=== PATIENT | female | born 1945 | race Caucasian/White ===

== ENCOUNTER 2021-10-23 09:26 | Day surgery (SDC) | payer MEDICARE, OTHER, SELFPAY ==
[2021-10-23 10:12] VITALS: BMI 22.1
[2021-10-23 10:29] VITALS: BP 187/79; PULSE 67; RESP 18; TEMP 36.7; O2SAT 98; BMI 21.1
[2021-10-23 10:36] LABS: Barbiturates Screen,Urine Positive ng/ml (<200); Benzodiazepines Screen,Urine Negative ng/ml (<200)
[2021-10-23 10:37] LABS: Amphetamine/Metha Screen,Urine Negative ng/ml (<1000)
[2021-10-23 10:38] LABS: Cannabinoid Screen,Urine Negative ng/ml (<50); Cocaine Screen,Urine Negative ng/ml (<300)
[2021-10-23 10:39] LABS: Methadone Screen,Urine Negative ng/ml (<300); Opiate Screen,Urine Negative ng/ml (<300)
[2021-10-23 10:40] LABS: Phencyclidine Screen,Urine Negative ng/ml (<25)
--- NOTE | 2021-10-23 13:00 | HMH.ANESCL ---
[facility] Anesthesia Checklist - Patient Identification Patient Identification: Arm Band - Structural Data Admitted From: Home Planned Operative Procedure/s: Pain pump placement Consent for Planned Operative Procedure(s) Verified: Yes - NPO Status Verified Time NPO: 00:00 - Additional verifications Anesthesia Reactions: Yes (nausea) Hx Blood Transfusions: No Blood Transfusion Reaction: No - Airway Assessment C-Spine Mobility Assessed: Yes TMJ Mobility Assessed: Yes Dentition: Good Dentition - Neurological Assessment Level of Consciousness: Awake Hx Seizures: No Numbness or tingling in extremities: No - Anesthesia Plan Anesthesia Risk discussed: Yes Anesthesia Plan: Verified ASA Class: III Anesthesia Type: MAC [facility] History I have reviewed the patient's past medical history: Yes Medical History: Reports:: Coronary Artery Disease, Gastroesophageal Reflux Disease(GERD), Hypertension Denies:: Cancer, Diabetes Mellitus Type 1, Diabetes Mellitus Type 2, Internal Pacemaker, MRSA, Seizures *Have you ever received a pneumonia vaccine?: Yes *Have you received a flu vaccine this season?: Yes Other Medical History: Reports: Other (Fibromyalgia, TMJ, tremors). Denies: Blood Transfusion Reaction Anesthesia experience/problems:: None Other Surgeries: No: Pacemaker Amputation: No - *Social History Last grade of school completed: 11th or 12th Smoking Status: Never smoker Alcohol Intake: never Substance Use Type: denies use *Occupational Status:: retired Housing: house Household Members: spouse *Travel in the last 8 weeks: None Family Hx:: Cancer, Diabetes, Heart Attack
[2021-10-23 14:08] VITALS: BP 164/76; PULSE 68; RESP 14; TEMP 36.6; O2SAT 99
[2021-10-23 14:18] VITALS: BP 182/79; PULSE 64; RESP 16; O2SAT 97
--- NOTE | 2021-10-23 14:19 | HMH.OPNOTE ---
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 Degenerative disc disease of lumbar spine with lumbar radiculopathy symptoms. Post-op Diagnosis:: Same Procedure performed:: Intrathecal catheter placement with tunneling and intrathecal pain pump generator placement for permanent intrathecal pain pump system Surgeon:: Chris Garcia MD BAGGER AND STOCK HANDLER HELPER:: Vanessa Cabrera Anesthesia: MAC Estimated blood loss (mL): 5 Clinical Note:: Patient is a pleasant 76-year-old white female from our [place] office. We have been treating her for degenerative disc disease of the cervical spine with radiculopathy symptoms as well as degenerative disc disease of lumbar spine with lumbar radiculopathy symptoms. She does also have involuntary jerking movements of her neck. This could be tardive dyskinesia. She has follow-up previous conservative treatments including oral medications, injections and physical therapy. She is not a surgical candidate. She did have a successful intrathecal pump trial and a successful psychological evaluation. She was 80 to 90% better after the pump trial. She was also much more functional. Also jerking movements have subsided significantly during the trial. She presents for permanent placement of her intrathecal pain pump today. This will be with morphine 5 mg/mL to start at 0.25 mg/day. Operative findings:: None Operative note:: Informed consent was obtained the risk and benefits of the procedure were explained to the patient. Patient was taken the operating room placed prone on the procedure table. She was prepped and draped in sterile fashion. The pump pocket was made on the right flank. After this C-arm fluoroscopy was used to view the lumbar spine. The skin and subtenons tissues adjacent to the L4-5 and L5-S1 interspace were anesthetized using lidocaine. I made an incision and dissected down to the lumbar paraspinous fascia. A 17-gauge spinal needle was inserted and advanced into the L5-S1 interspace until clear CSF was obtained. After this intrathecal catheter was inserted and advanced very easily to the T6 vertebral body. The stylette of the catheter and the needle were withdrawn. The catheter was secured to the fascia with 2 anchor devices and 2-0 Prolene. I then prepared the pump with 20 mL of intrathecal morphine 5 mg/mL. I tunneled the catheter from the back to the pump pocket and attached catheter to the pump. We were able to freely withdraw clear CSF through the side-port. Both incisions were irrigated with a biotic solution. Both incisions were then closed with 2-0 Vicryl followed by 4-0 nylon. A wound VAC was placed over both incisions. The patient was placed in an abdominal binder taken recovery in stable condition. The patient tolerated the procedure well with no complications. The pump was interrogated in recovery and started at 0.25 mg/day. Patient was discharged home neurologically intact with good relief of pain symptoms. Plan and disposition: We will follow-up with this patient in our [place] office. We will follow-up with her next week. If she has any problems questions she is to call us back in the pain clinic. Condition: stable Disposition: PACU Complications:: None
[2021-10-23 14:28] VITALS: BP 157/98; PULSE 68; RESP 16; O2SAT 98
[2021-10-23 14:38] VITALS: BP 163/78; PULSE 65; RESP 16; TEMP 36.6; O2SAT 98
== END 2021-10-23 14:39 | disposition home or self-care (01) ==
LOC: OR 09:29
PROVIDERS: PCP Physician Assistant; Visit Provider Anesthesiology
DX: M50.10 Cervical disc disorder with radiculopathy, unspecified cervical region (principal); M51.16 Intervertebral disc disorders with radiculopathy, lumbar region; I25.10 Atherosclerotic heart disease of native coronary artery without angina pectoris; K21.9 Gastro-esophageal reflux disease without esophagitis; I10 Essential (primary) hypertension; M79.7 Fibromyalgia; Z79.899 Other long term (current) drug therapy; Z88.8 Allergy status to other drugs, medicaments and biological substances
CPT/HCPCS: 62350; 62362; 80305; 96374; C1755; C1772; J3370

== ENCOUNTER 2023-12-01 12:56 | Outpatient (POV) | payer MEDICARE, OTHER, SELFPAY ==
[2023-12-01 13:31] VITALS: BP 170/77; PULSE 85; RESP 18; O2SAT 98; BMI 22.4
--- NOTE | 2023-12-01 13:39 | P.PCN_ITS ---
Procedure Date: 12/01/23 Time: 13:39 Anesthesiologist:: Taylor Ray APRN Complications:: None Pre-procedure Diagnosis:: Degenerative disc disease of cervical and lumbar spine with cervical and lumbar radiculopathy symptoms, chronic pain syndrome Post-procedure Diagnosis:: Same Indications for Procedure:: Patient is a pleasant 78-year-old female who presents today as an patient transfer from the [facility]. Patient rates her pain today a 7 out of 10. She denies any new trauma or injury from her last visit here. Patient does have chronic neck and low back pain with radicular symptoms. Patient has tried and failed oral medication, heat and ice and topicals along with injection therapy. Patient states that the only thing that really seem to give improvement was the pump trial and now the pump. She is currently managed with morphine 7.5 mg/mL with a daily dose of 1.32 mg/day. She denies any side effects from this medication. Patient is also managed with baclofen and states it does help however she has trouble sleeping at night due to the pain. Patient does also state that she got diagnosed with rheumatoid arthritis approximately 1 year ago and feels like this does make her pain worse from time to time. She is also managed with compounded cream. Her Jesse has been reviewed and is appropriate. Physical Exam: General: Alert and oriented x3, no acute distress, pleasant and cooperative Lungs: Respirations even and unlabored, symmetrical chest expansion Eyes: PERRL Musculoskeletal: Flexion and extension of lumbar [spine] somewhat guarded secondary to pain, [antalgic gait noted] Neurological: Speech clear, no gross sensory deficit Procedure Details:: Informed consent was obtained and the risk and benefits of the procedure were explained to the patient. Patient was taken to the procedure room where no ninvasive monitoring was placed including noninvasive blood pressure cuff and pulse oximeter. Patient's pump was interrogated and was reprogrammed to morphine 1.452 mg/day. The patient tolerated the procedure well with no complications. Plan and Disposition:: Patient tolerated her intrathecal increase with no complications and was discharged neurologically intact. I did discuss with the patient to talk to her [facility] home refill nurse regarding making an adjustment to her boluses. I will also send in a 14-day supply of Skelaxin 800 mg at bedtime. Patient was counseled to discontinue her baclofen at night while she is trying this medication and to contact our office if it does help and she would like refills. Patient will return to clinic in 6 months for reevaluation of symptoms and plan of care. Patient has been instructed to contact the clinic with any concerns before the next appointment. Dr. Garcia has reviewed this note and agrees with this plan of care. This note was dictated using voice recognition software and make contain errors or omissions. -- It Is medically necessary for this patient to continue to have their intrathecal pump refilled at regular intervals. This patient had an intrathecal pain pump implanted after meeting criteria of chronic intractable pain for greater than 3 months and failing conservative treatments. Patient has committed and been compliant to the treatment plan and all planned follow up care. Since implantation of the intrathecal pain pump, the patient has had decreased pain and been more functional. Oral medications have been reduced including intake of oral opioids. Patient continues to do well with intrathecal therapy with decrease in pain symptoms and increase in functional status. Stopping intrathecal medications can lead to life threatening withdrawal, seizures, cardiac arrest, severe pain, and possible . Pumps that are not refilled at regular intervals can be damages and cause and need for replacement. We continually titrate dose and concentration to optimize pain relief and function. We are limited in concentration for certain drugs to safely deliver medications through the pump and stay within the recommendations from the Polyanalgesic Consensus Committee Guidelines. Depending on dose and concentration these pumps may need to be refilled sooner than 3 months as we titrate.
== END 2023-12-01 23:59 | disposition home or self-care (01) ==
PROVIDERS: PCP Physician Assistant; Visit Provider Nurse Practitioner Family
DX: G89.4 Chronic pain syndrome (principal); M50.10 Cervical disc disorder with radiculopathy, unspecified cervical region
CPT/HCPCS: 62368; 99202; G0463

== ENCOUNTER 2024-02-06 12:59 | Outpatient (POV) | payer MEDICARE, OTHER, SELFPAY ==
[2024-02-06 13:20] VITALS: BP 206/73; PULSE 88; RESP 16; O2SAT 97; BMI 23.0
--- NOTE | 2024-02-06 15:49 | A.OFFVIS_ITS ---
[facility] Disclaimer: The information contained in this section may have been updated after the patient was seen, as this information can be updated by other users. Medical History Vitamin D deficiency GERD (gastroesophageal reflux disease) HTN (hypertension) Depression Family History Other Unknown family medical history Social History Smoking Status: Never smoker alcohol intake: never substance use type: denies use current occupational status: other Travel in the last 8 weeks: None household members: spouse housing: house caffeine: Yes PM Subjective & Objective Subjective Subjective:: This patient is not getting any relief of her pain symptoms despite increases in her pain pump. Meds Home Medications and Allergies Home Medications ?Medication ?Instructions ?Recorded ?Confirmed ?Type acetaminophen 500 mg tablet 500 mg PO BID Pain 10/12/21 02/06/24 History buspirone 15 mg tablet 15 mg PO TID mood 10/12/21 02/06/24 History celecoxib 100 mg capsule 100 mg PO BIDP PRN arthritis 10/12/21 02/06/24 History cetirizine 10 mg capsule 10 mg PO DAILY allergies 10/12/21 02/06/24 History cetirizine 10 mg tablet 10 mg PO DAILY allergies 10/12/21 02/06/24 History lisinopril 40 mg tablet 40 mg PO DAILY blood pressure 10/12/21 02/06/24 History metoprolol succinate 25 mg 25 mg PO DAILY Heart disease 10/12/21 02/06/24 History tablet,extended release 24 hr nitroglycerin 0.4 mg sublingual 0.4 mg sublingual DAILYP PRN Chest 10/12/21 02/06/24 History tablet Pain ondansetron HCl 4 mg tablet 4 mg PO BIDP PRN Nausea 10/12/21 02/06/24 History pantoprazole 40 mg tablet,delayed 40 mg PO DAILY GERD 10/12/21 02/06/24 History release primidone 250 mg tablet 250 mg PO DAILY HRT 10/12/21 02/06/24 History sucralfate 1 gram tablet 1 gm PO BID stomach 10/12/21 02/06/24 History tizanidine 2 mg tablet 2 mg PO BIDP PRN muscle spasms 10/12/21 02/06/24 History tramadol 50 mg tablet 50 mg PO QID Pain 10/12/21 02/06/24 History trazodone 100 mg tablet 100 mg PO HS sleep 10/12/21 02/06/24 History cholecalciferol (vitamin D3) 10 400 unit PO DAILY Supplement 10/23/21 02/06/24 History mcg (400 unit) capsule diclofenac submicronized 35 mg 35 mg PO DAILY Pain 10/23/21 02/06/24 History capsule duloxetine 20 mg capsule,delayed 20 mg PO DAILY mood 10/23/21 02/06/24 History release sulfamethoxazole 800 1 each PO BID #14 tabs 10/23/21 02/06/24 Rx mg-trimethoprim 160 mg tablet methocarbamol 750 mg tablet 750 mg PO HS #14 tabs 12/01/23 02/06/24 Rx New Prescriptions to Start Prescriptions: Allergies Allergy/AdvReac Type Severity Reaction Status Date / Time ceftriaxone Allergy Verified 10/23/21 12:08 deutetrabenazine Allergy Verified 10/23/21 12:08 [From [facility]] gabapentin Allergy Verified 10/23/21 12:08 hydrochlorothiazide Allergy Verified 10/23/21 12:08 methylprednisolone Allergy Verified 10/23/21 12:08 nitrofurantoin Allergy Verified 10/23/21 12:08 orphenadrine Allergy Verified 10/23/21 12:08 povidone-iodine Allergy Verified 10/23/21 12:08 sulindac Allergy Verified 10/23/21 12:08 tolmetin Allergy Verified 10/23/21 12:08
--- NOTE | 2024-02-06 15:50 | EXP.PAIN.PRO ---
Procedure Date: 02/06/24 Time: 15:50 Anesthesiologist:: Chris Garcia MD Complications:: None Pre-procedure Diagnosis:: Degenerative disc disease of the lumbar spine with lumbar radiculopathy symptom Post-procedure Diagnosis:: Same Indications for Procedure:: This patient is a pleasant 78-year-old white female who we are treating for low back pain with lumbar radiculopathy symptoms. She continues to have increasing pain despite a significant increase in her pump at her last visit. She is wondering if her pump is working. She would like to decrease her pump and hopes of possible explant. She is also following up with neurosurgery to see if she may be a surgical candidate. She also does have a Flow[employer]ix pain pump system. We have discussed change of her pain pump system to a Rate [employer] system as the flowonix pain pump system is nonfunctional. Today we will decrease her pump 20% to 1.6 mg/day. Will follow-up with her in 2 weeks. Procedure Details:: Pump adjustment Informed consent was obtained risk and benefits of the procedure were explained to the patient. The patient was taken to the procedure room. The pump was interrogated intrathecal morphine infusion was decreased to 1.6 mg/day. This is a 20% reduction. Refill date now is March 10, 2024. Patient tolerated the procedure well with no complications. Plan and Disposition:: This patient will follow-up with us in 2 weeks. Will follow-up on neurosurgical recommendations as well as a decrease of her pump. Will also seek approval for change of her pump if the patient wants to keep her pump and not explant.
== END 2024-02-06 23:59 | disposition home or self-care (01) ==
PROVIDERS: PCP Physician Assistant; Visit Provider Anesthesiology
DX: M51.16 Intervertebral disc disorders with radiculopathy, lumbar region (principal)
CPT/HCPCS: 62368; 99212; G0463

== ENCOUNTER 2024-02-20 08:36 | Day surgery (SDC) | payer MEDICARE, SELFPAY ==
[2024-02-20 08:59] VITALS: BP 168/72; PULSE 75; RESP 18; O2SAT 97
[2024-02-20 09:00] VITALS: BP 189/75; PULSE 74; RESP 18; O2SAT 97; BMI 22.6
--- NOTE | 2024-02-20 09:10 | P.PCN_ITS ---
Procedure Date: 02/20/24 Time: 09:10 Anesthesiologist:: Taylor Ray APRN Complications:: None Pre-procedure Diagnosis:: Degenerative disc disease of lumbar spine with lumbar radiculopathy symptoms Post-procedure Diagnosis:: Same Indications for Procedure:: Patient is a pleasant 79-year-old female who presents today for intrathecal refill and reprogram. Today she rates her pain a 7 out of 10. Patient denies any new trauma or injury. Patient does state that the 20% decrease at her last visit did seem to ease down her nightmare she was experiencing however she is stating she has had a little bit worse pain due to that fact. Patient does state that she has anxiety and that she is still wanting to try and stay at the at home refill program. She is requesting if we can go to bupivacaine in her pump. Patient is currently managed with morphine 7.5 mg/mL with a daily dose of 1.596 mg/day. She denies any side effects from this medication. Her Jesse has been reviewed and is appropriate. Physical Exam: General: Alert and oriented x3, no acute distress, pleasant and cooperative Lungs: Respirations even and unlabored, symmetrical chest expansion Eyes: PERRL Musculoskeletal: Flexion and extension of lumbar [spine] somewhat guarded secondary to pain, [antalgic gait noted] Neurological: Speech clear, no gross sensory deficit Procedure Details:: Informed consent was obtained and the risk and benefits of the procedure were e xplained to the patient. The patient was taken to the procedure room where noninvasive monitoring was placed including noninvasive blood pressure cuff and pulse oximeter. Patient's pump was interrogated. The area over the pump was cleansed with chlorhexidine as a cleansing solution. In sterile fashion the pump was accessed with a 22-gauge needle. Approximately 9.6 mls of the pump solution was removed and discarded appropriately. The pump was then refilled with 20 mL's of morphine 7.5 mg/mL. The needle was withdrawn and a bandage was placed over the puncture site. The infusion rate was reprogrammed and decreased to morphine 1.28 mg/day. The patient tolerated well with no complication. Plan and Disposition:: Patient tolerated her intrathecal refill and reprogram with no complications and was discharged neurologically intact. Patient was discussed regarding changing over her intrathecal medication to bupivacaine and she would like to proceed forward with this plan of care. I have counseled her that I would like to see her additionally to slowly decrease her medication down to minimize withdrawal symptoms. Patient agrees with this plan of care. Patient does also have a [employer] intrathecal system and this company is no longer in service. Patient has been reviewed over the plan to switch out her intrathecal pump system to [employer]. Patient was counseled that the catheter is not compatible with the Medtronic system and she would get a complete system change. Patient agrees with this plan of care. Patient does have significant improvement with her intrathecal pain pump system since having it placed in 2021. We will plan on submitting for her intrathecal pump replacement with catheter change out to insurance due to her current system having no longer being in service with no support available for any problems. Patient will return to clinic in 3 weeks for additional adjustment and reprogram of her pump. We will see the patient back in the clinic at the next intrathecal refill. Patient has been instructed to contact the clinic with any concerns before the next appointment. Dr. Garcia has reviewed this note and agrees with this plan of care. This note was dictated using voice recognition software and make contain errors or omissions. -- It Is medically necessary for this patient to continue to have their intrathecal pump refilled at regular intervals. This patient had an intrathecal pain pump implanted after meeting criteria of chronic intractable pain for greater than 3 months and failing conservative treatments. Patient has committed and been compliant to the treatment plan and all planned follow up care. Since implantation of the intrathecal pain pump, the patient has had decreased pain and been more functional. Oral medications have been reduced including intake of oral opioids. Patient continues to do well with intrathecal therapy with decrease in pain symptoms and increase in functional status. Stopping intrathecal medications can lead to life threatening withdrawal, seizures, cardiac arrest, severe pain, and possible . Pumps that are not refilled at regular intervals can be damages and cause and need for replacement. We continually titrate dose and concentration to optimize pain relief and function. We are limited in concentration for certain drugs to safely deliver medications through the pump and stay within the recommendations from the Polyanalgesic Consensus Committee Guidelines. Depending on dose and concentration these pumps may need to be refilled sooner than 3 months as we titrate.
[2024-02-20 09:16] VITALS: BP 159/78; PULSE 69; RESP 18; O2SAT 98
== END 2024-02-20 09:16 | disposition home or self-care (01) ==
PROVIDERS: PCP Physician Assistant; Visit Provider Nurse Practitioner Family
DX: M51.16 Intervertebral disc disorders with radiculopathy, lumbar region (principal)
CPT/HCPCS: 62370

== ENCOUNTER 2024-03-17 11:03 | Outpatient (POV) | payer MEDICARE, SELFPAY ==
--- NOTE | 2024-03-17 11:53 | EXP.PAIN.PRO ---
Procedure Date: 03/17/24 Time: 11:53 Anesthesiologist:: Taylor Ray APRN Complications:: None Pre-procedure Diagnosis:: Degenerative disc disease of lumbar spine with lumbar radiculopathy symptoms Post-procedure Diagnosis:: Same Indications for Procedure:: Patient is a pleasant 79-year-old female who presents today for intrathecal adjustment and reprogram. She does rate her pain today an 8 out of 10. Patient does state from her last intrathecal decrease she did have increased pain. 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 Patient does have anxiety and does better being refilled at home. Patient is currently managed with morphine 7.5 mg/mL with a daily dose of 1.28 mg/day. She denies any side effects aside from the worsening pain from the decreases. Patient does state the pain is getting much more significant and she did not realize how well the pump was doing until she started to have to decrease this down. Patient denies any issues with her pump other than occasionally her bolus does take longer before it delivers the medication. Patient does have a flowonix pump and this is no longer in service. Patient was discussed regarding having her pump switched out. Her Jesse has been reviewed and is appropriate. Physical Exam: General: Alert and oriented x3, no acute distress, pleasant and cooperative Lungs: Respirations even and unlabored, symmetrical chest expansion Eyes: PERRL Musculoskeletal: Flexion and extension of lumbar [spine] somewhat guarded secondary to pain, [antalgic gait noted] Neurological: Speech clear, no gross sensory deficit Procedure Details:: Informed consent was obtained and the risk and benefits of the procedure were explained to the patient. Patient was taken to the procedure room where noninvasive monitoring was placed including noninvasive blood pressure cuff and pulse oximeter. Patient's pump was interrogated and was reprogrammed to morphine 0.9 mg/day. The patient tolerated the procedure well with no complications. Plan and Disposition:: Patient tolerated her intrathecal decrease with no complications and was discharged neurologically intact. I did discuss with the patient that we will order the bupivacaine 5 mg/mL with a daily dose of 2.5 mg/day to be started at her next intrathecal refill on April 11. Patient is experiencing more significant pain and I did discuss with patient that I will send in a 3-month supply of tramadol 50 mg twice daily. Patient has had this medication before and denies any side effects. Patient was counseled that we can as of right now we will do every other visit when she does need medication refills telehealth in order to help minimize worsening anxiety. Patient agrees with this plan of care. Patient will return to clinic on or before her next refill of April 11. Patient was counseled since her pump is still working correctly with no significant issues that we can wait before replacing it. We will see the patient back in the clinic at the next intrathecal refill. Patient has been instructed to contact the clinic with any concerns before the next appointment. Dr. Garcia has reviewed this note and agrees with this plan of care. This note was dictated using voice recognition software and make contain errors or omissions. -- It Is medically necessary for this patient to continue to have their intrathecal pump refilled at regular intervals. This patient had an intrathecal pain pump implanted after meeting criteria of chronic intractable pain for greater than 3 months and failing conservative treatments. Patient has committed and been compliant to the treatment plan and all planned follow up care. Since implantation of the intrathecal pain pump, the patient has had decreased pain and been more functional. Oral medications have been reduced including intake of oral opioids. Patient continues to do well with intrathecal therapy with decrease in pain symptoms and increase in functional status. Stopping intrathecal medications can lead to life threatening withdrawal, seizures, cardiac arrest, severe pain, and possible . Pumps that are not refilled at regular intervals can be damages and cause and need for replacement. We continually titrate dose and concentration to optimize pain relief and function. We are limited in concentration for certain drugs to safely deliver medications through the pump and stay within the recommendations from the Polyanalgesic Consensus Committee Guidelines. Depending on dose and concentration these pumps may need to be refilled sooner than 3 months as we titrate.
[2024-03-17 14:06] VITALS: BP 190/93; PULSE 77; RESP 18; O2SAT 97; BMI 22.8
== END 2024-03-17 23:59 | disposition home or self-care (01) ==
PROVIDERS: PCP Physician Assistant; Visit Provider Nurse Practitioner Family
DX: M51.16 Intervertebral disc disorders with radiculopathy, lumbar region (principal)
CPT/HCPCS: 62368; 99212; G0463

== ENCOUNTER 2024-03-31 12:51 | Outpatient (POV) | payer MEDICARE, SELFPAY ==
[2024-03-31 13:18] VITALS: BP 155/80; PULSE 66; RESP 16; O2SAT 97; BMI 23.0
--- NOTE | 2024-03-31 13:34 | EXP.PAIN.SOA ---
[facility] Disclaimer: The information contained in this section may have been updated after the patient was seen, as this information can be updated by other users. Medical History (Updated 03/31/24 @ 13:36 by Taylor Ray APRN) Vitamin D deficiency GERD (gastroesophageal reflux disease) HTN (hypertension) Depression Family History Other Unknown family medical history Social History Smoking Status: Never smoker alcohol intake: never substance use type: denies use current occupational status: other Travel in the last 8 weeks: None household members: spouse housing: house caffeine: Yes PM Subjective & Objective Subjective Subjective:: Patient is a pleasant 79-year-old female who presents today for follow-up and worsening pain symptoms. She does rate her pain today an 8 out of 10. Patient has been having trouble getting her bolus device to work. Patient is currently managed with morphine 7.5 mg/mL with a daily dose of morphine 0.9 mg/day. She denies any side effects from this medication. We are currently decreasing her down in order to switch her over to bupivacaine so she can stay at home refill with [facility]. Patient was prescribed tramadol 50 mg 3 times a day and denies any side effects from this medication however she feels like it still does not cut it as well as the morphine in the pump. Patient states in the past she has been on 100 mg 3 times a day and that seem like that worked better. Her Jesse has been reviewed and is appropriate. Review of Systems: General: No recent weight changes, no fever, no sleep disturbances Respiratory: No cough, no shortness of air, no recurring pulmonary infections Cardiovascular/peripheral vascular: No chest pain, no palpitations, no edema, no shortness of breath Gastrointestinal: No new onset incontinence, normal bowel movements reported Genitourinary: No new onset incontinence Musculoskeletal: Low back pain Psychiatric: [Normal mood/affect] Neurological: [Denies weakness in extremities], [denies balance issues] Pain at rest (0-10 scale): 8 Objective Objective:: Physical Exam: General: Alert and oriented x3, no acute distress, pleasant and cooperative Lungs: Respirations even and unlabored, symmetrical chest expansion Eyes: PERRL Musculoskeletal: Flexion and extension of lumbar [spine] somewhat guarded secondary to pain, [antalgic gait noted] Neurological: Speech clear, no gross sensory deficit Has patient had previous pain injection?: No Conservative treatment options previously tried: Home exercise plan Length of treatment: Longer than 12 weeks Meds Home Medications and Allergies Home Medications ?Medication ?Instructions ?Recorded ?Confirmed ?Type acetaminophen 500 mg tablet 500 mg PO BID Pain 10/12/21 03/31/24 History buspirone 15 mg tablet 15 mg PO TID mood 10/12/21 03/31/24 History celecoxib 100 mg capsule 100 mg PO BIDP PRN arthritis 10/12/21 03/31/24 History cetirizine 10 mg capsule 10 mg PO DAILY allergies 10/12/21 03/31/24 History cetirizine 10 mg tablet 10 mg PO DAILY allergies 10/12/21 03/31/24 History lisinopril 40 mg tablet 40 mg PO DAILY blood pressure 10/12/21 03/31/24 History metoprolol succinate 25 mg 25 mg PO DAILY Heart disease 10/12/21 03/31/24 History tablet,extended release 24 hr nitroglycerin 0.4 mg sublingual 0.4 mg sublingual DAILYP PRN Chest 10/12/21 03/31/24 History tablet Pain ondansetron HCl 4 mg tablet 4 mg PO BIDP PRN Nausea 10/12/21 03/31/24 History pantoprazole 40 mg tablet,delayed 40 mg PO DAILY GERD 10/12/21 03/31/24 History release primidone 250 mg tablet 250 mg PO DAILY HRT 10/12/21 03/31/24 History sucralfate 1 gram tablet 1 gm PO BID stomach 10/12/21 03/31/24 History tizanidine 2 mg tablet 2 mg PO BIDP PRN muscle spasms 10/12/21 03/31/24 History trazodone 100 mg tablet 100 mg PO HS sleep 10/12/21 03/31/24 History cholecalciferol (vitamin D3) 10 400 unit PO DAILY Supplement 10/23/21 03/31/24 History mcg (400 unit) capsule diclofenac submicronized 35 mg 35 mg PO DAILY Pain 10/23/21 03/31/24 History capsule duloxetine 20 mg capsule,delayed 20 mg PO DAILY mood 10/23/21 03/31/24 History release sulfamethoxazole 800 1 each PO BID #14 tabs 10/23/21 03/31/24 Rx mg-trimethoprim 160 mg tablet methocarbamol 750 mg tablet 750 mg PO HS #14 tabs 12/01/23 03/31/24 Rx tramadol 50 mg tablet 50 mg PO TID Pain #90 tabs 03/17/24 03/31/24 Rx New Prescriptions to Start Prescriptions: Allergies Allergy/AdvReac Type Severity Reaction Status Date / Time ceftriaxone Allergy Verified 10/23/21 12:08 deutetrabenazine Allergy Verified 10/23/21 12:08 [From [facility]] gabapentin Allergy Verified 10/23/21 12:08 hydrochlorothiazide Allergy Verified 10/23/21 12:08 methylprednisolone Allergy Verified 10/23/21 12:08 nitrofurantoin Allergy Verified 10/23/21 12:08 orphenadrine Allergy Verified 10/23/21 12:08 povidone-iodine Allergy Verified 10/23/21 12:08 sulindac Allergy Verified 10/23/21 12:08 tolmetin Allergy Verified 10/23/21 12:08 Assessment and Plan *Assessment and plan (1) Degenerative disc disease, lumbar: Status: Acute Category: Medical Code(s): M51.369 - Other intervertebral disc degeneration, lumbar region without mention of lumbar back pain or lower extremity pain Plan We were able to get the patient's bolus device reactivated and in working condition. I did discuss with the patient over risk and benefits of having her pump replaced due to the company no longer being in and production. Patient would like to proceed forward with this plan of care. Patient's catheter and pump would both need to be replaced because the catheter is not compatible with the [employer] intrathecal pain pump system. She acknowledges understanding and agrees with this plan of care. We will plan on continuing her tramadol at this time. Patient was also counseled that in future we can always go back to the morphine if needed. Patient will return to clinic on the for her medication change out to bupivacaine. We will see the patient back in the clinic at the next intrathecal refill. Patient has been instructed to contact the clinic with any concerns before the next appointment. Dr. Garcia has reviewed this note and agrees with this plan of care. This note was dictated using voice recognition software and make contain errors or omissions. -- It Is medically necessary for this patient to continue to have their intrathecal pump refilled at regular intervals. This patient had an intrathecal pain pump implanted after meeting criteria of chronic intractable pain for greater than 3 months and failing conservative treatments. Patient has committed and been compliant to the treatment plan and all planned follow up care. Since implantation of the intrathecal pain pump, the patient has had decreased pain and been more functional. Oral medications have been reduced including intake of oral opioids. Patient continues to do well with intrathecal therapy with decrease in pain symptoms and increase in functional status. Stopping intrathecal medications can lead to life threatening withdrawal, seizures, cardiac arrest, severe pain, and possible . Pumps that are not refilled at regular intervals can be damages and cause and need for replacement. We continually titrate dose and concentration to optimize pain relief and function. We are limited in concentration for certain drugs to safely deliver medications through the pump and stay within the recommendations from the [employer] Guidelines. Depending on dose and concentration these pumps may need to be refilled sooner than 3 months as we titrate.
== END 2024-03-31 23:59 | disposition home or self-care (01) ==
LOC: SC.PAIN 12:52
PROVIDERS: PCP Physician Assistant; Visit Provider Nurse Practitioner Family
DX: M51.369 Other intervertebral disc degeneration, lumbar region without mention of lumbar back pain or lower extremity pain (principal)
CPT/HCPCS: 62368; 99212; 99213; G0463

== ENCOUNTER 2024-04-29 11:42 | Outpatient (POV) | payer OTHER, SELFPAY ==
[2024-04-29 12:17] VITALS: BP 182/80; BP 199/82; PULSE 74; RESP 16; O2SAT 97; BMI 23.4
--- NOTE | 2024-04-29 12:34 | P.PCN_ITS ---
Procedure Date: 04/29/24 Time: 12:34 Anesthesiologist:: Taylor Ray APRN Complications:: None Pre-procedure Diagnosis:: Degenerative disc disease of lumbar spine with lumbar radiculopathy symptoms Post-procedure Diagnosis:: Same Indications for Procedure:: Patient is a pleasant 79-year-old female who presents today for intrathecal adjustment and reprogram. Today she rates her pain a 7 out of 10. Patient does state that from switching over from her morphine pump to bupivacaine that she did have increased pain. Patient states that she did feel all over pain and that that has improved. Patient was given a prescription of Percocet and Valium however she states that she really did not take either of these. Patient states that she did not get good explanation that it would help with her symptoms from changing from an opioid to nonopioid medication. She stated that she just tho ught the medicine was for pain and that she has been on Percocet in the past and it just did not do well. Patient has been prescribed tramadol 50 mg 3 times a day from our office and states that that medicine has always helped better in the past. Patient does present today with elevated blood pressure. Patient does have a history of hypertension and is on medications. Patient denies any new falls or injuries. Patient is currently managed with bupivacaine 5 mg/mL with a daily dose of 2.5 mg/day. She denies any side effects. Patient was wanting to switch over to the bupivacaine in order to stay at home refill with [facility] due to her anxiety issues. Her Jesse has been reviewed and is appropriate. Physical Exam: General: Alert and oriented x3, no acute distress, pleasant and cooperative Lungs: Respirations even and unlabored, symmetrical chest expansion Eyes: PERRL Musculoskeletal: Flexion and extension of lumbar [spine] somewhat guarded secondary to pain, [antalgic gait noted] Neurological: Speech clear, no gross sensory deficit Procedure Details:: Informed consent was obtained and the risk and benefits of the procedure were explained to the patient. Patient did have noninvasive monitoring was placed including noninvasive blood pressure cuff and pulse oximeter. Patient's pump was interrogated and was reprogrammed to bupivacaine to 0.875 mg/day. The patient tolerated the procedure well with no complications. Plan and Disposition:: Patient tolerated her intrathecal adjustment and reprogram with no complications and was discharged neurologically intact. Patient is scheduled to have her intrathecal pump changed out on May 07 with our office. I did review over the risk and benefits of this and that we will see her back 1 week postop of this procedure. Patient agrees with this plan of care. We will see the patient back in the clinic at the next intrathecal refill. Patient has been instructed to contact the clinic with any concerns before the next appointment. Dr. Garcia has reviewed this note and agrees with this plan of care. This note was dictated using voice recognition software and make contain errors or omissions. -- It Is medically necessary for this patient to continue to have their intrathecal pump refilled at regular intervals. This patient had an intrathecal pain pump implanted after meeting criteria of chronic intractable pain for greater than 3 months and failing conservative treatments. Patient has committed and been compliant to the treatment plan and all planned follow up care. Since implantation of the intrathecal pain pump, the patient has had decreased pain and been more functional. Oral medications have been reduced including intake of oral opioids. Patient continues to do well with intrathecal therapy with decrease in pain symptoms and increase in functional status. Stopping intrathecal medications can lead to life threatening withdrawal, seizures, cardiac arrest, severe pain, and possible . Pumps that are not refilled at regular intervals can be damages and cause and need for replacement. We continually titrate dose and concentration to optimize pain relief and function. We are limited in concentration for certain drugs to safely deliver medications through the pump and stay within the recommendations from the [employer] Consensus [employer] Guidelines. Depending on dose and concentration these pumps may need to be refilled sooner than 3 months as we titrate.
== END 2024-04-29 23:59 | disposition home or self-care (01) ==
PROVIDERS: PCP Physician Assistant; Visit Provider Nurse Practitioner Family
DX: M51.16 Intervertebral disc disorders with radiculopathy, lumbar region (principal)
CPT/HCPCS: 62368; 99213; G0463

== ENCOUNTER 2024-04-29 12:33 | Outpatient (CLI) | payer MEDICARE, SELFPAY ==
--- NOTE | 2024-04-29 13:02 | ECG_ITS ---
APPROVED REPORT Exam: Resting ECG HR:71 bpm ECG Measurements Heart Rate 71 AXES PA 162 P 62 QRSd 82 QRS -42 QT 376 T 77 QTc 398 Conclusion SINUS RHYTHM LEFT AXIS DEVIATION [QRS AXIS < -30] ABNORMAL ECG UNCONFIRMED REPORT Electronically signed by : Wiley Osei MD 04/29/2024 20:06:29
[2024-04-29 13:30] VITALS: BMI 23.4
[2024-04-29 14:16] LABS: Chloride 105 mmol/L (98-107); Potassium 3.9 mmoL/L (3.5-5.1); Sodium 137 mmol/L (136-145)
[2024-04-29 14:17] LABS: Basophils % 1.2 % (0.1-2.0); Eosinophils # 0.1 K/mm3 (0.0-0.4); Eosinophils % 3.5 % (0.1-12.0); Hematocrit 37.5 % (37.0-47.0); Hemoglobin 12.4 g/dL (12.2-16.2); Lymphocytes # 0.9 K/mm3 (0.7-4.5); Lymphocytes % 26.8 % (10-50); Mean Corpuscular Hemoglobin 30.9 pg (27.0-31.2); Mean Corpuscular Volume 93.7 fl (81-99); Mean Platelet Volume 9.9 fl (7.4-10.4); Monocytes # 0.2 K/mm3 (0.1-1.0); Monocytes % 6.9 % (1.7-9.3); Neutrophils # 2.1 K/mm3 (1.8-7.8); Neutrophils % 61.6 % (37.0-80.0); Platelet Count 186 K/mm3 (142-424); Red Cell Distribution Width 13.6 % (11.5-17.5); White Blood Count 3.4 K/mm3 (4.8-10.8)
[2024-04-29 14:19] LABS: Blood Urea Nitrogen 11 mg/dl (7-17); Creatinine Clearance Estimated 40 mL/min (50-200); Estimated Glomerular Filt Rate 97 ml/min (>60); GFR (African American) 117 ML/MIN (>60)
[2024-04-29 14:20] LABS: Anion Gap 6.9 mEq/L (5-15); Calcium 8.9 mg/dl (8.4-10.2); Carbon Dioxide 29 mmol/L (22.0-30.0); Glucose 94 mg/dl (74-100)
== END 2024-04-29 23:59 | disposition home or self-care (01) ==
PROVIDERS: PCP Physician Assistant; Visit Provider Anesthesiology
DX: Z01.810 Encounter for preprocedural cardiovascular examination (principal); M51.16 Intervertebral disc disorders with radiculopathy, lumbar region; R94.31 Abnormal electrocardiogram [ECG] [EKG]
CPT/HCPCS: 80048; 85025; 93005

== ENCOUNTER 2024-05-17 19:26 | Emergency (ER) | payer MEDICARE, OTHER, SELFPAY ==
[2024-05-17] VITALS (17 sets, daily range): BP systolic 205–240; BP diastolic 89–123; PULSE 78–86; RESP 10–19; TEMP 36.7; O2SAT 90–97; BMI 23.0
--- NOTE | 2024-05-17 19:41 | ECG_ITS ---
APPROVED REPORT Exam: Resting ECG HR:81 bpm ECG Measurements Heart Rate [address] 154 P 64 QRSd 80 QRS 20 QT 357 T 63 QTc 394 Conclusion SINUS RHYTHM NORMAL ECG Electronically signed by : RUBEN REN, 05/18/2024 00:38:45
--- NOTE | 2024-05-17 19:43 | ED_ITS ---
Discharge Plan Disposition Patient Disposition: Home, Self-Care Condition: Good Prescriptions Prescriptions: New metoprolol succinate 50 mg tablet extended release 24 hr 50 mg PO DAILY Qty: 30 0RF No Action diazepam 5 mg tablet 5 mg PO TIDP PRN (Reason: withdraw symptoms) Patient Comments: TAKE ONE (1) TABLET THREE (3) TIMES A DAY BY ORAL ROUTE. tizanidine 2 MG tablet 2 mg PO BIDP PRN (Reason: muscle spasms) cetirizine 10 MG tablet 10 mg PO DAILY sucralfate 1 GM tablet 1 gm PO BID ondansetron HCl 4 MG tablet 4 mg PO BIDP PRN (Reason: Nausea) acetaminophen 500 MG tablet 500 mg PO BID primidone 250 MG tablet 250 mg PO DAILY Rx Instructions: 250 mg in am / 125mg @ HS trazodone 100 MG tablet 50 mg PO HS PRN (Reason: sleep) pantoprazole 40 MG tablet,delayed release (DR/EC) 40 mg PO DAILY nitroglycerin 0.4 MG tablet, sublingual 0.4 mg SL DAILYP PRN (Reason: Chest Pain) metoprolol succinate 25 MG tablet extended release 24 hr 25 mg PO DAILY lisinopril 40 MG tablet 40 mg PO DAILY buspirone 15 MG tablet 15 mg PO TID cholecalciferol (vitamin D3) 10 MCG capsule 400 unit PO DAILY duloxetine 20 MG capsule,delayed release(DR/EC) 20 mg PO DAILY diclofenac submicronized 35 MG capsule 35 mg PO DAILY methocarbamol 750 mg tablet 750 mg PO HS Qty: 14 0RF tramadol 50 MG tablet 50 mg PO TID Qty: 90 2RF Referrals Follow up/Referrals: Alon Goetz PA [Primary Care Provider] - See instructions Activity Restrictions/Add. Instructions Additional Instructions/Restrictions: Please follow-up with your primary care provider. Please follow-up with your pain team. Please increase metoprolol as discussed. Please return to the emergency department if you develop any new or worsening symptoms or become concerned for your health. Clinical Impressions Clinical Impression: Asymptomatic hypertension, Chronic pain Print Language Print Language: Sudanese Discharge ED Provider: Bobby Casas General Adult HPI <JAMI Arrieta - Last Filed: 05/17/24 22:33> General Chief complaint: PAIN Stated complaint: reaction to pain pump Time Seen by Provider: 05/17/24 19:41 History of Present Illness HPI narrative: Patient presents for essentially multiple complaints but all stemming from chronic pain. Patient follows with Dr. Garcia of pain management. She has rheumatoid arthritis and fibromyalgia and has a pain pump in. In March she was switched from morphine to a lidocaine analog but she has had no improvement. She has had continuous symptoms of uncontrolled pain since the switch. She reports that it is gotten far worse over the last 24 hours. And she has been unable to sleep. Patient states today that she began having chest heaviness and pain underneath her left breast. Patient does have a cardiovascular history with previous DE and stent placement approximately 15 years ago. She denies any of breath fever chills hemoptysis hematochezia melena nausea vomiting diarrhea but does report feeling extremely weak. Related Data Home Medications ?Medication ?Instructions ?Recorded ?Confirmed acetaminophen 500 mg tablet 500 mg PO BID Pain 10/12/21 03/31/24 buspirone 15 mg tablet 15 mg PO TID mood 10/12/21 04/29/24 cetirizine 10 mg tablet 10 mg PO DAILY allergies 10/12/21 03/31/24 lisinopril 40 mg tablet 40 mg PO DAILY blood pressure 10/12/21 04/29/24 metoprolol succinate 25 mg 25 mg PO DAILY Heart disease 10/12/21 04/29/24 tablet,extended release 24 hr nitroglycerin 0.4 mg sublingual 0.4 mg sublingual DAILYP PRN Chest 10/12/21 03/31/24 tablet Pain ondansetron HCl 4 mg tablet 4 mg PO BIDP PRN Nausea 10/12/21 04/29/24 pantoprazole 40 mg tablet,delayed 40 mg PO DAILY GERD 10/12/21 03/31/24 release primidone 250 mg tablet 250 mg PO DAILY HRT 10/12/21 04/29/24 sucralfate 1 gram tablet 1 gm PO BID stomach 10/12/21 03/31/24 tizanidine 2 mg tablet 2 mg PO BIDP PRN muscle spasms 10/12/21 03/31/24 trazodone 100 mg tablet 50 mg PO HS PRN sleep 10/12/21 03/31/24 cholecalciferol (vitamin D3) 10 400 unit PO DAILY Supplement 10/23/21 03/31/24 mcg (400 unit) capsule diclofenac submicronized 35 mg 35 mg PO DAILY Pain 10/23/21 03/31/24 capsule duloxetine 20 mg capsule,delayed 20 mg PO DAILY mood 10/23/21 03/31/24 release diazepam 5 mg tablet 5 mg PO TIDP PRN withdraw symptoms 04/29/24 04/29/24 Previous Rx's ?Medication ?Instructions ?Recorded methocarbamol 750 mg tablet 750 mg PO HS #14 tabs 12/01/23 tramadol 50 mg tablet 50 mg PO TID Pain #90 tabs 03/17/24 metoprolol succinate 50 mg 50 mg PO DAILY #30 tabs 05/17/24 tablet,extended release 24 hr Allergies Allergy/AdvReac Type Severity Reaction Status Date / Time ceftriaxone Allergy Verified 10/23/21 12:08 deutetrabenazine (From Allergy Verified 10/23/21 12:08 [place]) gabapentin Allergy Verified 10/23/21 12:08 hydrochlorothiazide Allergy Verified 10/23/21 12:08 methylprednisolone Allergy Verified 10/23/21 12:08 nitrofurantoin Allergy Verified 10/23/21 12:08 orphenadrine Allergy Verified 10/23/21 12:08 povidone-iodine Allergy Verified 10/23/21 12:08 sulindac Allergy Verified 10/23/21 12:08 tolmetin Allergy Verified 10/23/21 12:08 [facility], [facility] <JAMI Arrieta - Last Filed: 05/17/24 22:33> [facility], LAT[facility] Disclaimer: The information contained in this section may have been updated after the patient was seen, as this information can be updated by other users. Medical History (Updated 05/18/24 @ 01:00 by Bobby Casas MD) Macular degeneration History of gastrectomy CAD (coronary artery disease) Anxiety Vitamin D deficiency GERD (gastroesophageal reflux disease) HTN (hypertension) Depression Surgical History (Updated 04/29/24 @ 12:46 by Steve Gregg RN) History of cholecystectomy History of hernia repair History of back surgery History of coronary artery stent placement Family History (Updated 04/29/24 @ 12:48 by Steve Gregg RN) Other Family history of cancer Family history of diabetes mellitus Family history of heart disease Social History (Updated 04/29/24 @ 12:49 by Steve Gregg RN) Smoking Status: Never smoker alcohol intake: never substance use type: denies use current occupational status: retired Travel in the last 8 weeks: None household members: spouse housing: house caffeine: Yes Have you lived/traveled outside [place] in past 30 days?: No Contact w/someone who lives/traveled outside US past 30 days?: No Exposure to someone with infectious disease in past 14 days?: No Do you have a fever (greater than 100.4 F or 38 C)?: No Have you tested positive for COVID-19: No Exposed to someone with COVID-19 in past 14 days?: No Do you have a sore throat?: No Do you have a cough?: No Do you have any weakness?: No Do you have any diarrhea?: No Are you experiencing any unusual bleeding?: No Do you have any muscle aches/pain?: No Do you have any abdominal pain?: No Are you experiencing loss of taste or smell?: No Other Medical History Have you received the Flu Vaccine for this season: Yes Have you received the Pneumonia Vaccine: Yes <JAMI Arrieta - Last Filed: 05/17/24 22:33> ROS Obtained: Yes Systems reviewed as appropriate & no additional complaints except as documented Physical Exam <JAMI Arrieta - Last Filed: 05/17/24 22:33> General General appearance: alert and in no apparent distress Neck Neck exam: Present lymphadenopathy Respiratory Respiratory exam: Present normal lung sounds bilaterally Cardiovascular Cardiovascular exam: Present regular rate Neurological Exam Neurological exam: Present alert and oriented X3 Skin Skin exam: Present warm and dry Medical Decision Making <JAMI Arrieta - Last Filed: 05/17/24 22:33> Medical Records Medical records reviewed: Yes I reviewed the patient's medical records. Screening: Per USPSTF and CDC recommendations, given the prevalence of disease in our region, it is our hospital?s policy to screen for HIV and viral Hepatitis for all patients aged 18 and over and those with ongoing risk factors. Jesse Inquiry Pt receiving controlled substance: No Vital Signs: 05/17/24 19:26 05/17/24 19:34 05/17/24 19:36 Temperature 98.1 F Temperature Source Oral Pulse Rate 82 86 Pulse Rate [Left Radial] 81 Respiratory Rate 18 16 19 Blood Pressure 222/108 H 216/121 H Blood Pressure [Right Arm] 216/121 H Blood Pressure Mean 127 152 Blood Pressure Mean [Right Arm] 152 Blood Pressure Source 02 Sat by Pulse Oximetry 95 95 95 Oxygen Delivery Method Room Air 05/17/24 19:46 05/17/24 19:56 05/17/24 20:00 Temperature Temperature Source Pulse Rate 82 84 Pulse Rate [Left Radial] Respiratory Rate 13 12 Blood Pressure 209/112 H 229/123 H 212/105 H Blood Pressure [Right Arm] Blood Pressure Mean 162 158 161 Blood Pressure Mean [Right Arm] Blood Pressure Source 02 Sat by Pulse Oximetry 93 L 97 Oxygen Delivery Method 05/17/24 20:07 05/17/24 20:10 05/17/24 20:15 Temperature Temperature Source Pulse Rate 84 82 81 Pulse Rate [Left Radial] Respiratory Rate 11 L 14 10 L Blood Pressure 240/109 H 225/112 H 207/108 H Blood Pressure [Right Arm] Blood Pressure Mean 152 149 141 Blood Pressure Mean [Right Arm] Blood Pressure Source 02 Sat by Pulse Oximetry 97 94 L 94 L Oxygen Delivery Method 05/17/24 20:25 05/17/24 20:30 05/17/24 20:40 Temperature Temperature Source Pulse Rate 82 83 84 Pulse Rate [Left Radial] Respiratory Rate 15 11 L 13 Blood Pressure 213/103 H 206/100 H 238/115 H Blood Pressure [Right Arm] Blood Pressure Mean 139 135 141 Blood Pressure Mean [Right Arm] Blood Pressure Source 02 Sat by Pulse Oximetry 94 L 93 L 90 L Oxygen Delivery Method 05/17/24 20:50 05/17/24 21:33 05/17/24 21:41 Temperature Temperature Source Pulse Rate 82 78 79 Pulse Rate [Left Radial] Respiratory Rate 13 Blood Pressure 216/106 H 213/99 H 207/89 H Blood Pressure [Right Arm] Blood Pressure Mean 142 183 128 Blood Pressure Mean [Right Arm] Blood Pressure Source 02 Sat by Pulse Oximetry 94 L 93 L 97 Oxygen Delivery Method 05/17/24 21:45 05/17/24 23:12 05/18/24 00:47 Temperature Temperature Source Pulse Rate 80 68 Pulse Rate [Left Radial] Respiratory Rate Blood Pressure 219/107 H 205/102 H 180/88 H Blood Pressure [Right Arm] Blood Pressure Mean 144 Blood Pressure Mean [Right Arm] Blood Pressure Source Manual Cuff/ Auscultation 02 Sat by Pulse Oximetry 93 L 97 Oxygen Delivery Method 05/18/24 01:11 Temperature 98.0 F Temperature Source Oral Pulse Rate 67 Pulse Rate [Left Radial] Respiratory Rate 15 Blood Pressure 175/87 H Blood Pressure [Right Arm] Blood Pressure Mean Blood Pressure Mean [Right Arm] Blood Pressure Source 02 Sat by Pulse Oximetry Oxygen Delivery Method Room Air Lab Data Lab results reviewed: Yes I reviewed the patient's lab results. Lab Results 05/17/24 19:33: Urine Color Yellow, Urine Appearance Clear, Urine pH 6.5, Ur Specific [place] 1.015, Urine Protein Negative, Urine Glucose (UA) Negative, Urine Ketones Negative, Urine Blood Negative, Urine Nitrate Negative, Urine Bilirubin Negative, Urine Urobilinogen 0.2, Ur Leukocyte Esterase Negative, Urine RBC 3-5, Urine WBC Occasional, Ur Squamous Epith Cells 5-10, Urine Bacteria 2+ 05/17/24 19:41: WBC 4.9, RBC 4.07 L, Hgb 12.2, Hct 37.3, MCV 91.6, MCH 30.0, MCHC 32.7, RDW 13.2, Plt Count 241, MPV 11.7 H, Neut % (Auto) 62.2, Lymph % (Auto) 23.8, [place] % (Auto) 10.4 H, Eos % (Auto) 2.0, Baso % (Auto) 1.2, Neut # (Auto) 3.1, Lymph # (Auto) 1.2, [place] # (Auto) 0.5, Eos # (Auto) 0.1, Baso # (Auto) 0.1, Sodium 139, Potassium 4.5, Chloride 109 H, Carbon Dioxide 24, Anion Gap 10.5, BUN 27 H, Creatinine 1.00, Estimated Creat Clear 39, Estimated GFR 54 L, Est GFR ( Amer) 65, Glucose 108 H, Calcium 9.7, Magnesium 2.4 H, Total Bilirubin 0.5, AST 32, ALT 21, Alkaline Phosphatase 104, Troponin I < 0.01 05/17/24 19:41: Troponin I < 0.01, Total Protein 6.9, Albumin 4.3, Globulin 2.6, Albumin/Globulin Ratio 1.7, HIV Ag/Ab Combo Qual Negative 05/17/24 19:46: SARS-CoV-2 (PCR) Not detected, Influenza A Untype (PCR) Not detected, Influenza Type B (PCR) Not detected, POC RSV Rapid Negative 12/23/24 22:50: Troponin I < 0.01 05/17/24 19:41 05/17/24 19:41 Orders (Tests/Meds): ED MEDICATIONS Discontinued Medications Generic Name Dose Route Start Last Admin Trade Name Lina PRN Reason Stop Dose Admin Clonidine HCl 0.1 mg 05/17/24 23:29 05/17/24 23:42 Clonidine 0.1mg Tablet PO 05/17/24 23:30 0.1 mg ONCE ONE Administration Dexamethasone Sodium Phosphate 10 mg 05/17/24 20:50 05/17/24 20:57 Dexamethasone 4mg/Ml 5ml Mdv IV 05/17/24 20:51 10 mg ONCE ONE Administration Hydromorphone HCl 1 mg 05/17/24 20:50 05/17/24 20:56 Hydromorphone 2mg/Ml Syringe IV 05/17/24 20:51 1 mg ONCE ONE Administration Ketorolac Tromethamine 30 mg 05/17/24 20:50 05/17/24 20:56 Ketorolac 30mg/Ml Vial IV 05/17/24 20:51 30 mg ONCE ONE Administration Levofloxacin 500 mg 05/17/24 21:18 05/17/24 21:43 Levofloxacin 500mg Tab PO 05/17/24 21:19 500 mg ONCE ONE Administration Lisinopril 40 mg 05/17/24 23:30 05/17/24 23:42 Lisinopril 20mg Tablet PO 05/17/24 23:31 40 mg ONCE ONE Administration Methocarbamol 500 mg 05/17/24 22:53 05/17/24 23:03 Methocarbamol 500mg Tablet PO 05/17/24 22:54 500 mg ONCE ONE Administration Metoprolol Tartrate 25 mg 05/17/24 22:16 05/17/24 22:23 Metoprolol Tartrate 50mg Tablet PO 05/17/24 22:17 25 mg ONCE ONE Administration Metoprolol Tartrate 25 mg 05/17/24 23:29 05/17/24 23:42 Metoprolol Tartrate 50mg Tablet PO 05/17/24 23:30 25 mg ONCE ONE Administration Sodium Chloride 10 ml 05/17/24 19:59 Sodium Chloride 0.9% 10ml Flush Syringe IV 06/16/24 19:58 NEEDED PRN Maintain IV Site ORDERS Category Date Time Status Complete Blood Count Auto Diff Stat Lab 05/17/24 19:41 Completed Comprehensive Metabolic Panel Stat Lab 05/17/24 19:41 Completed HIV Combo Stat Lab 05/17/24 19:41 Completed Hep C Ab with Reflex to RNA Stat Lab 05/17/24 19:41 Received Magnesium Stat Lab 05/17/24 19:41 Completed RSV Rapid Ab Screen Stat Lab 05/17/24 19:46 Completed Rapid PCR Covid and Flu A/B Stat Lab 05/17/24 19:46 Completed Trop I [Troponin I] Stat Lab 05/17/24 19:41 Completed Troponin I Q3H Lab 05/17/24 22:50 Completed Troponin I Stat Lab 05/17/24 19:41 Completed UA [Urinalysis and Microscopic] Stat Lab 05/17/24 19:33 Completed Urine Culture Stat Micro 05/17/24 19:33 Received Medical Decision Narrative: In summary patient is a 79-year-old female who presents to the emergency department for evaluation of multifactorial pain. Patient is NIP acutely hypertensive with a blood pressure at the time of my exam 236/111 but with a heart rate in the 80s breathing 18 times a minute with no labored breathing satting at 95% on room air and afebrile. Physical exam is remarkable for no reproducible chest pain on palpation. Patient is awake alert and oriented and Krystina Coma Score is 15 cranial nerves are intact grossly to exam. Bowel sounds are normal active there is no abdominal tenderness.. Differential diagnosis includes hypertensive emergency versus ACS versus acute on chronic pain versus occult infection etc. Initial workup will be conducted with hematologic labs urinalysis. Initial interventions include crystalloid bolus Toradol Tylenol Decadron Dilaudid. Initial workup reviewed by me shows patient has a urinary tract infection with red cells white cells and bacteria the remainder of her laboratory work is nonactionable including an undetectable first troponin. The patient was placed in observation status at 8 PM. Medical necessity for observational status is serial troponins. The patient was provided serial reevaluations continuous cardiac monitoring and pulse oximetry while awaiting results. Second troponin pending at the time of handoff to Dr. Paez at 2200 hrs. Plan will be additionally to increase her antihypertensive regimen with metoprolol and lisinopril given her appropriate laboratory results and close follow-up with her PCP upon discharge. <Taylor Paez, DO - Last Filed: 05/18/24 00:04> Vital Signs: 05/17/24 19:26 05/17/24 19:34 05/17/24 19:36 Temperature 98.1 F Temperature Source Oral Pulse Rate 82 86 Pulse Rate [Left Radial] 81 Respiratory Rate 18 16 19 Blood Pressure 222/108 H 216/121 H Blood Pressure [Right Arm] 216/121 H Blood Pressure Mean 127 152 Blood Pressure Mean [Right Arm] 152 Blood Pressure Source 02 Sat by Pulse Oximetry 95 95 95 Oxygen Delivery Method Room Air 05/17/24 19:46 05/17/24 19:56 05/17/24 20:00 Temperature Temperature Source Pulse Rate 82 84 Pulse Rate [Left Radial] Respiratory Rate 13 12 Blood Pressure 209/112 H 229/123 H 212/105 H Blood Pressure [Right Arm] Blood Pressure Mean 162 158 161 Blood Pressure Mean [Right Arm] Blood Pressure Source 02 Sat by Pulse Oximetry 93 L 97 Oxygen Delivery Method 05/17/24 20:07 05/17/24 20:10 05/17/24 20:15 Temperature Temperature Source Pulse Rate 84 82 81 Pulse Rate [Left Radial] Respiratory Rate 11 L 14 10 L Blood Pressure 240/109 H 225/112 H 207/108 H Blood Pressure [Right Arm] Blood Pressure Mean 152 149 141 Blood Pressure Mean [Right Arm] Blood Pressure Source 02 Sat by Pulse Oximetry 97 94 L 94 L Oxygen Delivery Method 05/17/24 20:25 05/17/24 20:30 05/17/24 20:40 Temperature Temperature Source Pulse Rate 82 83 84 Pulse Rate [Left Radial] Respiratory Rate 15 11 L 13 Blood Pressure 213/103 H 206/100 H 238/115 H Blood Pressure [Right Arm] Blood Pressure Mean 139 135 141 Blood Pressure Mean [Right Arm] Blood Pressure Source 02 Sat by Pulse Oximetry 94 L 93 L 90 L Oxygen Delivery Method 05/17/24 20:50 05/17/24 21:33 05/17/24 21:41 Temperature Temperature Source Pulse Rate 82 78 79 Pulse Rate [Left Radial] Respiratory Rate 13 Blood Pressure 216/106 H 213/99 H 207/89 H Blood Pressure [Right Arm] Blood Pressure Mean 142 183 128 Blood Pressure Mean [Right Arm] Blood Pressure Source 02 Sat by Pulse Oximetry 94 L 93 L 97 Oxygen Delivery Method 05/17/24 21:45 05/17/24 23:12 05/18/24 00:47 Temperature Temperature Source Pulse Rate 80 68 Pulse Rate [Left Radial] Respiratory Rate Blood Pressure 219/107 H 205/102 H 180/88 H Blood Pressure [Right Arm] Blood Pressure Mean 144 Blood Pressure Mean [Right Arm] Blood Pressure Source Manual Cuff/ Auscultation 02 Sat by Pulse Oximetry 93 L 97 Oxygen Delivery Method 05/18/24 01:11 Temperature 98.0 F Temperature Source Oral Pulse Rate 67 Pulse Rate [Left Radial] Respiratory Rate 15 Blood Pressure 175/87 H Blood Pressure [Right Arm] Blood Pressure Mean Blood Pressure Mean [Right Arm] Blood Pressure Source 02 Sat by Pulse Oximetry Oxygen Delivery Method Room Air Lab Data Lab Results 05/17/24 19:33: Urine Color Yellow, Urine Appearance Clear, Urine pH 6.5, Ur Specific [place] 1.015, Urine Protein Negative, Urine Glucose (UA) Negative, Urine Ketones Negative, Urine Blood Negative, Urine Nitrate Negative, Urine Bilirubin Negative, Urine Urobilinogen 0.2, Ur Leukocyte Esterase Negative, Urine RBC 3-5, Urine WBC Occasional, Ur Squamous Epith Cells 5-10, Urine Bacteria 2+ 05/17/24 19:41: WBC 4.9, RBC 4.07 L, Hgb 12.2, Hct 37.3, MCV 91.6, MCH 30.0, MCHC 32.7, RDW 13.2, Plt Count 241, MPV 11.7 H, Neut % (Auto) 62.2, Lymph % (Auto) 23.8, [place] % (Auto) 10.4 H, Eos % (Auto) 2.0, Baso % (Auto) 1.2, Neut # (Auto) 3.1, Lymph # (Auto) 1.2, [place] # (Auto) 0.5, Eos # (Auto) 0.1, Baso # (Auto) 0.1, Sodium 139, Potassium 4.5, Chloride 109 H, Carbon Dioxide 24, Anion Gap 10.5, BUN 27 H, Creatinine 1.00, Estimated Creat Clear 39, Estimated GFR 54 L, Est GFR ( Amer) 65, Glucose 108 H, Calcium 9.7, Magnesium 2.4 H, Total Bilirubin 0.5, AST 32, ALT 21, Alkaline Phosphatase 104, Troponin I < 0.01 05/17/24 19:41: Troponin I < 0.01, Total Protein 6.9, Albumin 4.3, Globulin 2.6, Albumin/Globulin Ratio 1.7, HIV Ag/Ab Combo Qual Negative 05/17/24 19:46: SARS-CoV-2 (PCR) Not detected, Influenza A Untype (PCR) Not detected, Influenza Type B (PCR) Not detected, POC RSV Rapid Negative 05/17/24 22:50: Troponin I < 0.01 Orders (Tests/Meds): ED MEDICATIONS Discontinued Medications Generic Name Dose Route Start Last Admin Trade Name Lina PRN Reason Stop Dose Admin Clonidine HCl 0.1 mg 05/17/24 23:29 05/17/24 23:42 Clonidine 0.1mg Tablet PO 05/17/24 23:30 0.1 mg ONCE ONE Administration Dexamethasone Sodium Phosphate 10 mg 05/17/24 20:50 05/17/24 20:57 Dexamethasone 4mg/Ml 5ml Mdv IV 05/17/24 20:51 10 mg ONCE ONE Administration Hydromorphone HCl 1 mg 05/17/24 20:50 05/17/24 20:56 Hydromorphone 2mg/Ml Syringe IV 05/17/24 20:51 1 mg ONCE ONE Administration Ketorolac Tromethamine 30 mg 05/17/24 20:50 05/17/24 20:56 Ketorolac 30mg/Ml Vial IV 05/17/24 20:51 30 mg ONCE ONE Administration Levofloxacin 500 mg 05/17/24 21:18 05/17/24 21:43 Levofloxacin 500mg Tab PO 05/17/24 21:19 500 mg ONCE ONE Administration Lisinopril 40 mg 05/17/24 23:30 05/17/24 23:42 Lisinopril 20mg Tablet PO 05/17/24 23:31 40 mg ONCE ONE Administration Methocarbamol 500 mg 05/17/24 22:53 05/17/24 23:03 Methocarbamol 500mg Tablet PO 05/17/24 22:54 500 mg ONCE ONE Administration Metoprolol Tartrate 25 mg 05/17/24 22:16 05/17/24 22:23 Metoprolol Tartrate 50mg Tablet PO 05/17/24 22:17 25 mg ONCE ONE Administration Metoprolol Tartrate 25 mg 05/17/24 23:29 05/17/24 23:42 Metoprolol Tartrate 50mg Tablet PO 05/17/24 23:30 25 mg ONCE ONE Administration Sodium Chloride 10 ml 05/17/24 19:59 Sodium Chloride 0.9% 10ml Flush Syringe IV 06/16/24 19:58 NEEDED PRN Maintain IV Site ORDERS Category Date Time Status Complete Blood Count Auto Diff Stat Lab 05/17/24 19:41 Completed Comprehensive Metabolic Panel Stat Lab 05/17/24 19:41 Completed HIV Combo Stat Lab 05/17/24 19:41 Completed Hep C Ab with Reflex to RNA Stat Lab 05/17/24 19:41 Received Magnesium Stat Lab 05/17/24 19:41 Completed RSV Rapid Ab Screen Stat Lab 05/17/24 19:46 Completed Rapid PCR Covid and Flu A/B Stat Lab 05/17/24 19:46 Completed Trop I [Troponin I] Stat Lab 05/17/24 19:41 Completed Troponin I Q3H Lab 05/17/24 22:50 Completed Troponin I Stat Lab 05/17/24 19:41 Completed UA [Urinalysis and Microscopic] Stat Lab 05/17/24 19:33 Completed Urine Culture Stat Micro 05/17/24 19:33 Received ECG Data Tracing #1: I reviewed this ECG and interpreted as documented below: Normal sinus rhythm with a ventricular rate of [address] changes concerning for ischemia. Normal axis and intervals. ECG initial impression date: 05/17/24 ECG initial impression time: 19:44 Medical Decision Narrative: In summary patient is a 79-year-old female who presents to the emergency department for evaluation of multifactorial pain. Patient is NIP acutely hypertensive with a blood pressure at the time of my exam 236/111 but with a heart rate in the 80s breathing 18 times a minute with no labored breathing satting at 95% on room air and afebrile. Physical exam is remarkable for no reproducible chest pain on palpation. Patient is awake alert and oriented and Krystina Coma Score is 15 cranial nerves are intact grossly to exam. Bowel sounds are normal active there is no abdominal tenderness.. Differential diagnosis includes hypertensive emergency versus ACS versus acute on chronic pain versus occult infection etc. Initial workup will be conducted with hematologic labs urinalysis. Initial interventions include crystalloid bolus Toradol Tylenol Decadron Dilaudid. Initial workup reviewed by me shows patient has a urinary tract infection with red cells white cells and bacteria the remainder of her laboratory work is nonactionable including an undetectable first troponin. The patient was placed in observation status at 8 PM. Medical necessity for observational status is serial troponins. The patient was provided serial reevaluations continuous cardiac monitoring and pulse oximetry while awaiting results. Second troponin pending at the time of handoff to Dr. Paez at 2200 hrs. Plan will be additionally to increase her antihypertensive regimen with metoprolol and lisinopril given her appropriate laboratory results and close follow-up with her PCP upon discharge. DO Philippe: I was consulted by the NUSRAT, and we discussed the complexity of the problems being addressed. I approved the treatment and management plan for this patient's care in the emergency department, thus performing a substantive portion of the medical decision making. I assumed care of the patient at 2200 after departure of the NUSRAT. Blood pressure remained significantly high despite adequate pain control and no symptoms on assessment. She does not have any significant concerns for endorgan dysfunction based on lab evaluation and lack of symptoms, with troponins negative x 2. I had shared decision-making with the patient and offered admission for hypertensive crisis, but she states she would rather try going home. She notes that her previously was on clonidine for severe hypertension, so she would like to try this. She also notes to me that she did not take her blood pressure medication today. Given this, she was given her home blood pressure medication as well as a dose of 0.1 mg of clonidine. Patient care signed out to the oncoming provider, Dr. Casas, pending reassessment of BP. Patient prefers to go home, but if BP does not improve she understands we may recommend admission. Taylor Paez DO <Bobby Casas MD - Last Filed: 05/18/24 02:50> Vital Signs: 05/17/24 19:26 05/17/24 19:34 05/17/24 19:36 Temperature 98.1 F Temperature Source Oral Pulse Rate 82 86 Pulse Rate [Left Radial] 81 Respiratory Rate 18 16 19 Blood Pressure 222/108 H 216/121 H Blood Pressure [Right Arm] 216/121 H Blood Pressure Mean 127 152 Blood Pressure Mean [Right Arm] 152 Blood Pressure Source 02 Sat by Pulse Oximetry 95 95 95 Oxygen Delivery Method Room Air 05/17/24 19:46 05/17/24 19:56 05/17/24 20:00 Temperature Temperature Source Pulse Rate 82 84 Pulse Rate [Left Radial] Respiratory Rate 13 12 Blood Pressure 209/112 H 229/123 H 212/105 H Blood Pressure [Right Arm] Blood Pressure Mean 162 158 161 Blood Pressure Mean [Right Arm] Blood Pressure Source 02 Sat by Pulse Oximetry 93 L 97 Oxygen Delivery Method 05/17/24 20:07 05/17/24 20:10 05/17/24 20:15 Temperature Temperature Source Pulse Rate 84 82 81 Pulse Rate [Left Radial] Respiratory Rate 11 L 14 10 L Blood Pressure 240/109 H 225/112 H 207/108 H Blood Pressure [Right Arm] Blood Pressure Mean 152 149 141 Blood Pressure Mean [Right Arm] Blood Pressure Source 02 Sat by Pulse Oximetry 97 94 L 94 L Oxygen Delivery Method 05/17/24 20:25 05/17/24 20:30 05/17/24 20:40 Temperature Temperature Source Pulse Rate 82 83 84 Pulse Rate [Left Radial] Respiratory Rate 15 11 L 13 Blood Pressure 213/103 H 206/100 H 238/115 H Blood Pressure [Right Arm] Blood Pressure Mean 139 135 141 Blood Pressure Mean [Right Arm] Blood Pressure Source 02 Sat by Pulse Oximetry 94 L 93 L 90 L Oxygen Delivery Method 05/17/24 20:50 05/17/24 21:33 05/17/24 21:41 Temperature Temperature Source Pulse Rate 82 78 79 Pulse Rate [Left Radial] Respiratory Rate 13 Blood Pressure 216/106 H 213/99 H 207/89 H Blood Pressure [Right Arm] Blood Pressure Mean 142 183 128 Blood Pressure Mean [Right Arm] Blood Pressure Source 02 Sat by Pulse Oximetry 94 L 93 L 97 Oxygen Delivery Method 05/17/24 21:45 05/17/24 23:12 05/18/24 00:47 Temperature Temperature Source Pulse Rate 80 68 Pulse Rate [Left Radial] Respiratory Rate Blood Pressure 219/107 H 205/102 H 180/88 H Blood Pressure [Right Arm] Blood Pressure Mean 144 Blood Pressure Mean [Right Arm] Blood Pressure Source Manual Cuff/ Auscultation 02 Sat by Pulse Oximetry 93 L 97 Oxygen Delivery Method 05/18/24 01:11 Temperature 98.0 F Temperature Source Oral Pulse Rate 67 Pulse Rate [Left Radial] Respiratory Rate 15 Blood Pressure 175/87 H Blood Pressure [Right Arm] Blood Pressure Mean Blood Pressure Mean [Right Arm] Blood Pressure Source 02 Sat by Pulse Oximetry Oxygen Delivery Method Room Air Lab Data Lab Results 05/17/24 19:33: Urine Color Yellow, Urine Appearance Clear, Urine pH 6.5, Ur Specific [place] 1.015, Urine Protein Negative, Urine Glucose (UA) Negative, Urine Ketones Negative, Urine Blood Negative, Urine Nitrate Negative, Urine Bilirubin Negative, Urine Urobilinogen 0.2, Ur Leukocyte Esterase Negative, Urine RBC 3-5, Urine WBC Occasional, Ur Squamous Epith Cells 5-10, Urine Bacteria 2+ 05/17/24 19:41: WBC 4.9, RBC 4.07 L, Hgb 12.2, Hct 37.3, MCV 91.6, MCH 30.0, MCHC 32.7, RDW 13.2, Plt Count 241, MPV 11.7 H, Neut % (Auto) 62.2, Lymph % (Auto) 23.8, [place] % (Auto) 10.4 H, Eos % (Auto) 2.0, Baso % (Auto) 1.2, Neut # (Auto) 3.1, Lymph # (Auto) 1.2, [place] # (Auto) 0.5, Eos # (Auto) 0.1, Baso # (Auto) 0.1, Sodium 139, Potassium 4.5, Chloride 109 H, Carbon Dioxide 24, Anion Gap 10.5, BUN 27 H, Creatinine 1.00, Estimated Creat Clear 39, Estimated GFR 54 L, Est GFR ( Amer) 65, Glucose 108 H, Calcium 9.7, Magnesium 2.4 H, Total Bilirubin 0.5, AST 32, ALT 21, Alkaline Phosphatase 104, Troponin I < 0.01 05/17/24 19:41: Troponin I < 0.01, Total Protein 6.9, Albumin 4.3, Globulin 2.6, Albumin/Globulin Ratio 1.7, HIV Ag/Ab Combo Qual Negative 05/17/24 19:46: SARS-CoV-2 (PCR) Not detected, Influenza A Untype (PCR) Not detected, Influenza Type B (PCR) Not detected, POC RSV Rapid Negative 05/17/24 22:50: Troponin I < 0.01 Orders (Tests/Meds): ED MEDICATIONS Discontinued Medications Generic Name Dose Route Start Last Admin Trade Name Freq PRN Reason Stop Dose Admin Clonidine HCl 0.1 mg 05/17/24 23:29 05/17/24 23:42 Clonidine 0.1mg Tablet PO 05/17/24 23:30 0.1 mg ONCE ONE Administration Dexamethasone Sodium Phosphate 10 mg 05/17/24 20:50 05/17/24 20:57 Dexamethasone 4mg/Ml 5ml Mdv IV 05/17/24 20:51 10 mg ONCE ONE Administration Hydromorphone HCl 1 mg 05/17/24 20:50 05/17/24 20:56 Hydromorphone 2mg/Ml Syringe IV 05/17/24 20:51 1 mg ONCE ONE Administration Ketorolac Tromethamine 30 mg 05/17/24 20:50 05/17/24 20:56 Ketorolac 30mg/Ml Vial IV 05/17/24 20:51 30 mg ONCE ONE Administration Levofloxacin 500 mg 05/17/24 21:18 05/17/24 21:43 Levofloxacin 500mg Tab PO 05/17/24 21:19 500 mg ONCE ONE Administration Lisinopril 40 mg 05/17/24 23:30 05/17/24 23:42 Lisinopril 20mg Tablet PO 05/17/24 23:31 40 mg ONCE ONE Administration Methocarbamol 500 mg 05/17/24 22:53 05/17/24 23:03 Methocarbamol 500mg Tablet PO 05/17/24 22:54 500 mg ONCE ONE Administration Metoprolol Tartrate 25 mg 05/17/24 22:16 05/17/24 22:23 Metoprolol Tartrate 50mg Tablet PO 05/17/24 22:17 25 mg ONCE ONE Administration Metoprolol Tartrate 25 mg 05/17/24 23:29 05/17/24 23:42 Metoprolol Tartrate 50mg Tablet PO 05/17/24 23:30 25 mg ONCE ONE Administration Sodium Chloride 10 ml 05/17/24 19:59 Sodium Chloride 0.9% 10ml Flush Syringe IV 06/16/24 19:58 NEEDED PRN Maintain IV Site ORDERS Category Date Time Status Complete Blood Count Auto Diff Stat Lab 05/17/24 19:41 Completed Comprehensive Metabolic Panel Stat Lab 05/17/24 19:41 Completed HIV Combo Stat Lab 05/17/24 19:41 Completed Hep C Ab with Reflex to RNA Stat Lab 05/17/24 19:41 Received Magnesium Stat Lab 05/17/24 19:41 Completed RSV Rapid Ab Screen Stat Lab 05/17/24 19:46 Completed Rapid PCR Covid and Flu A/B Stat Lab 05/17/24 19:46 Completed Trop I [Troponin I] Stat Lab 05/17/24 19:41 Completed Troponin I Q3H Lab 05/17/24 22:50 Completed Troponin I Stat Lab 05/17/24 19:41 Completed UA [Urinalysis and Microscopic] Stat Lab 05/17/24 19:33 Completed Urine Culture Stat Micro 05/17/24 19:33 Received Medical Decision Narrative: In summary patient is a 79-year-old female who presents to the emergency department for evaluation of multifactorial pain. Patient is NIP acutely hypertensive with a blood pressure at the time of my exam 236/111 but with a heart rate in the 80s breathing 18 times a minute with no labored breathing satting at 95% on room air and afebrile. Physical exam is remarkable for no reproducible chest pain on palpation. Patient is awake alert and oriented and Krystina Coma Score is 15 cranial nerves are intact grossly to exam. Bowel sounds are normal active there is no abdominal tenderness.. Differential diagnosis includes hypertensive emergency versus ACS versus acute on chronic pain versus occult infection etc. Initial workup will be conducted with hematologic labs urinalysis. Initial interventions include crystalloid bolus Toradol Tylenol Decadron Dilaudid. Initial workup reviewed by me shows patient has a urinary tract infection with red cells white cells and bacteria the remainder of her laboratory work is nonactionable including an undetectable first troponin. The patient was placed in observation status at 8 PM. Medical necessity for observational status is serial troponins. The patient was provided serial reevaluations continuous cardiac monitoring and pulse oximetry while awaiting results. Second troponin pending at the time of handoff to Dr. Paez at 2200 hrs. Plan will be additionally to increase her antihypertensive regimen with metoprolol and lisinopril given her appropriate laboratory results and close follow-up with her PCP upon discharge. DO Philippe: I was consulted by the NUSRAT, and we discussed the complexity of the problems being addressed. I approved the treatment and management plan for this patient's care in the emergency department, thus performing a substantive portion of the medical decision making. I assumed care of the patient at 2200 after departure of the NUSRAT. Blood pressure remained significantly high despite adequate pain control and no symptoms on assessment. She does not have any significant concerns for endorgan dysfunction based on lab evaluation and lack of symptoms, with troponins negative x 2. I had shared decision-making with the patient and offered admission for hypertensive crisis, but she states she would rather try going home. She notes that her previously was on clonidine for severe hypertension, so she would like to try this. She also notes to me that she did not take her blood pressure medication today. Given this, she was given her home blood pressure medication as well as a dose of 0.1 mg of clonidine. Patient care signed out to the oncoming provider, Dr. Casas, pending reassessment of BP. Patient prefers to go home, but if BP does not improve she understands we may recommend admission. DO Augusto Delgado MD: I assumed care of the patient at the time of handoff from the prior provider. On reassessment patient's blood pressure improving, had multiple readings within the 170s systolic, which is patient's baseline. On my interpretation, urine does not appear consistent with acute infection, especially considering patient did not have any urinary symptoms at this time. Given this I discontinued the prescription for Levaquin. Patient was encouraged to increase her home metoprolol and follow-up with her PCP/cardiology as soon as possible. Return precautions given. Critical Care <JAMI Arrieta - Last Filed: 05/17/24 22:33> Critical Care Time Critical Care Time: No <Taylor Paez DO - Last Filed: 05/18/24 00:04> Critical Care Time Critical Care Time: Yes Attestation: On 05/17/24, the high probability of a clinically significant, sudden or life threatening deterioration of the following system(s) required my full and direct attention, intervention and personal management. The time I documented below is in addition to time spent performing reported procedures but includes the following listed in this critical care notation. Total Time Total Critical Care Time: 30
[2024-05-17 20:11] LABS: Alanine Aminotransferase 21 U/L (12-78); Albumin Level 4.3 g/dl (3.5-5.0); Albumin/Globulin Ratio 1.7 (1.1-1.8); Alkaline Phosphatase 104 U/L (38-126); Aspartate Amino Transferase 32 U/L (14-36); Bilirubin,Total 0.5 mg/dl (0.2-1.3); Blood Urea Nitrogen 27 mg/dl (7-17); Calcium 9.7 mg/dl (8.4-10.2); Carbon Dioxide 24 mmol/L (22.0-30.0); Chloride 109 mmol/L (98-107); Creatinine Clearance Estimated 39 mL/min (50-200); Estimated Glomerular Filt Rate 54 ml/min (>60); GFR (African American) 65 ML/MIN (>60); Globulin 2.6 g/dL (1.3-3.2); Glucose 108 mg/dl (74-100); Sodium 139 mmol/L (136-145); Total Protein,Serum 6.9 g/dl (6.3-8.2)
[2024-05-17 20:18] LABS: Hematocrit 37.3 % (37.0-47.0); Hemoglobin 12.2 g/dL (12.2-16.2); Red Blood Count 4.07 M/mm3 (4.20-5.40); White Blood Count 4.9 K/mm3 (4.8-10.8)
[2024-05-17 20:19] LABS: Basophils # 0.1 K/mm3 (0-0.2); Basophils % 1.2 % (0.1-2.0); Eosinophils # 0.1 K/mm3 (0.0-0.4); Lymphocytes # 1.2 K/mm3 (0.7-4.5); Lymphocytes % 23.8 % (10-50); Mean Corpuscular HGB Conc 32.7 g/dL (31.8-35.4); Mean Corpuscular Volume 91.6 fl (81-99); Mean Platelet Volume 11.7 fl (7.4-10.4); Monocytes # 0.5 K/mm3 (0.1-1.0); Monocytes % 10.4 % (1.7-9.3); Neutrophils # 3.1 K/mm3 (1.8-7.8); Neutrophils % 62.2 % (37.0-80.0); Platelet Count 241 K/mm3 (142-424); Red Cell Distribution Width 13.2 % (11.5-17.5)
[2024-05-17 20:25] LABS: Troponin I < 0.01 ng/ml (0.00-0.034)
[2024-05-17 20:26] LABS: Coronavirus 19, PCR Not Detected (NotDetected); Influenza A, PCR Not Detected (NotDetected); Influenza B, PCR Not Detected (NotDetected)
[2024-05-17 20:26] LABS: Microscopic, Urine URINE MICROSCOPIC (MICROSCOPIC)
[2024-05-17 20:31] LABS: Appearance,Urine CLEAR (Clear); Bilirubin,Urine Negative (Negative); Blood, Urine Negative (Negative); Color,Urine YELLOW (Yellow); Glucose,Urine (UA) Negative (Negative); Ketones,Urine Negative (Negative); Leukocyte Esterase,Urine Negative (Negative); Nitrate,Urine Negative (Negative); PH,Urine 6.5 (5.0-8.5); Protein,Urine Negative (Negative); Specific Gravity, Urine 1.015 (1.005-1.030); Urobilinogen,Urine 0.2 EU/dl (0.2)
[2024-05-17 20:31] LABS: Anion Gap 10.5 mEq/L (5-15); Potassium 4.5 mmoL/L (3.5-5.1)
[2024-05-17 20:35] LABS: Magnesium 2.4 mg/dl (1.6-2.3)
[2024-05-17 20:49] LABS: RSV Rapid Ab Screen Negative (Negative)
[2024-05-17 20:50] LABS: Troponin I < 0.01 ng/ml (0.00-0.034)
[2024-05-17] MEDS: KETOROLAC 30MG/ML VIAL 30 MG IV (20:56)
[2024-05-17] MEDS: HYDROMORPHONE 2MG/ML SYRINGE 1 MG IV (20:56)
[2024-05-17] MEDS: DEXAMETHASONE 4MG/ML 5ML MDV 10 MG IV (20:57)
[2024-05-17 21:01] LABS: WBC,Urine Occasional #/hpf (0-3)
[2024-05-17 21:02] LABS: HIV Combo NEGATIVE (Negative)
[2024-05-17 21:02] LABS: Bacteria,Urine 2+ /lpf
[2024-05-17] MEDS: levoFLOXacin 500MG TAB 500 MG PO (21:43)
[2024-05-17] MEDS: METOPROLOL TARTRATE 50MG TABLET 25 MG PO ×2 (22:23→23:42)
[2024-05-17] MEDS: METHOCARBAMOL 500MG TABLET 500 MG PO (23:03)
[2024-05-17 23:24] LABS: Troponin I < 0.01 ng/ml (0.00-0.034)
--- NOTE | 2024-05-17 23:32 | PC.NURSE ---
Pt's BP 216/98
[2024-05-17] MEDS: cloNIDine 0.1MG TABLET 0.1 MG PO (23:42)
[2024-05-17] MEDS: LISINOPRIL 20MG TABLET 40 MG PO (23:42)
[2024-05-18 00:47] VITALS: BP 180/88; PULSE 68; O2SAT 97
[2024-05-18 01:11] VITALS: BP 175/87; PULSE 67; RESP 15; TEMP 36.7; O2SAT 95
[2024-05-19 06:38] LABS: HCV Ab Non Reactive (Non Reactive)
== END 2024-05-18 01:12 | disposition home or self-care (01) ==
PROVIDERS: Emergency Medicine; Physician Assistant; Emergency Provider Emergency Medicine; PCP Physician Assistant
DX: G89.29 Other chronic pain (principal); R07.89 Other chest pain; I10 Essential (primary) hypertension
CPT/HCPCS: 80053; 81001; 83735; 84484; 85025; 86803; 87086; 87389; 87636; 87807; 93005; 96374; 96375; 99291; J1100; J1171; J1885

== ENCOUNTER 2024-09-08 09:34 | Outpatient (CLI) | payer MEDICARE, OTHER, SELFPAY ==
--- OUTSIDE RECORDS SUMMARY | 2024-09-08 09:39 | XMS_ITS | Data Portability ---
Author Organization [place] [facility] Address [address] [place] [address] Assessment Encounter Date Assessment Date Assessment LastModified by Organization Details LastModified Time 04/19/2024 04/19/2024 This patient He was having nightmares with intrathecal morphine and is wanting to switch over to intrathecal bupivacaine and reinstate home refill. She does have a [employer] Pain pump in place. She was titrated down to 0.9 mg/day of intrathecal morphine. We did switch her over to intrathecal bupivacaine today. I will give her Percocet 10 mg 1 tablet 4 times a day. Will also give her Valium 5 mg 3 times a day to help with withdrawal symptoms. Will give her 2 weeks worth of medication. Jesse and drug screen are all appropriate. She will be under the care of home refill. Will send this to the [facility] home refill nurse. She does have antalgic gait today. Motor strength of lower extremities is 5/5. There is no gross sensory deficit. Jesse and drug screen are all appropriate. Will see her back in 6 months. We will communicate with the [facility] home health nurse for adjustments and her refill. Her next refill is on or before May 22, 2024.Between now and her next in-clinic visit we will do a telemedicine visit in about 2 weeks to assess efficacy of this transition from morphine to bupivacaine. abux Not available 04/19/2024 12:58:38 05/06/2024 05/06/2024 This is a pleasant 79-year-old female that presents via telehealth for follow-up. Patient is scheduled for intrathecal pump change out of her nonfunctioning pain pump tomorrow in [place], she is requesting to be rescheduled due to an upper respiratory infection. We are currently managing this patient for degenerative disc disease of the lumbar spine with radiculopathy. Today patient is rating her pain a 7 out of 10. During our last visit we changed her intrathecal medication from morphine to bupivacaine so patient could qualify for at home refills. She states a few days following this refill she did have some swelling in her lower extremities but this has since resolved. She does not believe the bupivacaine is as effective at managing her symptoms but she wants to continue with this medication for a while longer. She did undergo a pump adjustment and was increased on April 29, she states this was not helpful. [facility] #[phone] was reviewed and was appropriate. Plan: We are rescheduling patient's intrathecal pain pump change out due to an upper respiratory infection, she was instructed to contact Hermilo's office to reschedule this date. We will continue with her intrathecal bupivacaine so patient can qualify for at home refills. We did discuss that at any time if her she feels the medication is not effective we can change her back to intrathecal morphine but this would require that she follows up with our office for intrathecal pain pump refills. She is understanding and agreement with this plan. Dr. Garcia has reviewed this chart and agrees with this plan of care. This note was dictated with voice recognition software and may contain errors or omission Patient is an established patient with their informed consent to treat signed and on file. Patient was verbally authenticated based on the demographic information in the patient? s file. Patient was given choice of telehealth ([place]) visit. telephone visit, or office visit; patient chose telephone visit due to COVID-19 state of emergency. This visit is being conduct via telephone ([place]) in accordance to all applicable laws and regulations. Patient is located in the [facility] and the treating medical provider is located in the [facility]. The telephone call was conducted for approximately 11 mins. [email or web address] Not available 05/06/2024 11:34:12 07/08/2024 07/08/2024 This patient has a intrathecal bupivacaine pain pump that is currently been turned off. She was scheduled for replacement of her pain pump system at [facility] however had to cancel her surgery due to an upper respiratory infection. Previously when she was on morphine she had issues with nightmares. It did give her adequate pain relief. Bupivacaine did not give her adequate pain relief. She would like to go back to an opioid and to have her pump changed out. We will call [facility] to get her back on the surgery schedule for replacement of her pain pump system. Will plan on intrathecal Dilaudid 1 mg/mL to start at 100 mcg/day. In meantime she is asking for pain medication. She has done well with oxycodone in the past. Will give her Percocet 5 mg 1 tablet twice a day to help her with her pain until she can have her pump replaced. Jesse and drug screen are all appropriate. Patient did get a urine drug screen done today.We did interrogate her pump to confirm that it is off. abux Not available 07/08/2024 21:21:04 Plan of Treatment Reminders Order Date Submit Date Provider Last Modified By Organization Details Last Modified Time Details Appointments None recorded. Lab None recorded. Referral None recorded. Procedures None recorded. Surgeries None recorded. Imaging None recorded. Medication Orders Percocet 5 mg-325 mg tablet [address], [address], 21:17:51 Valium 5 mg tablet [address], [address], 12:58:05 Percocet 10 mg-325 mg tablet [address], [address], 12:58:05 Patient TargetsNo targets recorded. Patient Instructions Encounter Date Encounter Id Patient Instructions Last Modified By Organization Details Last Modified Time 04/19/2024 [id number] back pain: care instructions abux Not available 04/19/2024 12:58:04 learning about relief for back pain abux Not available 04/19/2024 12:58:04 Reason for Referral None Reported. Results Created Date Observation Date Name Description Value Unit Range Abnormal Flag Note LastModifiedBy Organization Detail LastModifiedTime Result Notes None recorded. Problems Name Problem SNOMED Code Status Onset Date Resolution Date Notes Provider Name and Address Organization Details Recorded Time Moderate recurrent major depression 97074170 Active DANIELLE GOINS null, [place] [facility] 4 11:26:13 Recurrent urinary tract infection 466746696 Active 2018 DANIELLE GOINS null, [place] [facility] 4 11:26:13 Fibromyalgi a 202056186 Active 2018 DANIELLE GOINS null, [place] [facility] 4 11:26:13 Generalized anxiety disorder 88281567 Active DANIELLE GOINS null, [place] [facility] 4 11:26:13 Motor tic disorder 236214181 Active DANIELLE GOINS null, [place] [facility] 4 11:26:13 Gastroesoph ageal reflux disease 872411004 Active 2018 DANIELLE GOINS null, [place] [facility] 4 11:26:13 Urethral stenosis 737501623 Active 2018 DANIELLE GOINS null, [place] [facility] 4 11:26:13 Chest pain 23510480 Active DANIELLE GOINS null, [place] [facility] 4 11:26:13 Arthritis 6352654 Active 2018 DANIELLE GOINS null, [place] [facility] 4 11:26:13 Hypertensiv e disorder 44198192 Active 2018 DANIELLE GOINS null[place] [facility] 4 11:26:13 Neuropathy 302612325 Active 2018 DANIELLE GOINS null, [place] [facility] 4 11:26:13 Atrophic vaginitis 07506635 Active 2018 DANIELLE GOINS null, [place] [facility] 4 11:26:13 Coronary arterioscle rosis 98799176 Active 2018 DANIELLE GOINS null, [place] [facility] 4 11:26:13 Hyperlipide minal 55835616 Active 2018 DANIELLE GOINS null, [place] [facility] 4 11:26:13 History of cardiac catheteriza tion 0556287159579 0 Active DANIELLE GOINS null, [place] [facility] 4 11:26:13 Osteoporosi s 73476492 Active 2018 DANIELLELEONIDAS GOINS null, [place] [facility] 4 11:26:13 Septic shock 98050242 Active DANIELLE GOINS null, [place] [facility] 4 11:26:13 Lumbar radiculopat hy 766761817 Active 2023 Chris Garcia MD [address] [facility],[address], [address], [place] [facility] 4 12:46:58 Lumbar spondylosis 181225296 Active 2023 Chris Garcia MD [address] [facility],[address], [address], [place] [facility] 4 12:46:59 Long-term drug therapy Active 2024 Chris Garcia MD [address],[place] [address] [place] [address], [address], [place] [facility] 5 21:20:11 Continuous opioid dependence 167140510 Active 2024 Chris Garcia MD [address] [facility] [address], [address], [place] [facility] 5 21:20:12 Radiculopat hy due to lumbar interverteb ral disc disorder 0874598101553 05 Active 2022 STEPHANIE LEONARDO null, [place] [facility] 3 15:10:23 Problem Notes None recorded. Procedures Surgical History Date Name Laterality Status Provider Name and Address Organization Details Recorded Time 04/19/2024 Pump Refill completed Chris Garcia MD [address] [facility],[address], [address], [place] [facility] 04/19/2024 12:44:23 Imaging Results None recorded. Procedure Notes None recorded. Medical Equipment None Reported. Allergies Allergen ID Allergen Name Allergen Category Reaction Reaction Severity Criticality Documentation Date Start Date Code Code System Note Provider Name and Address Organization Details Recorded Time 6099 orphenadr ine Not available Not available Not available Not available 04/19/20242021 7715 RxNorm DANIELLE GOINS null, [place] [facility] 4 11:25:57 6100 methylpre dnisolone medicatio n Not available Not available Not available 04/19/20242021 6902 RxNorm DANIELLE GOINS null, [place] [facility] 4 11:25:57 6101 hydrochlo rothiazid e medicatio n Not available Not available Not available 04/19/20242021 5487 RxNorm DANIELLE GOINS null, [place] [facility] 4 11:25:57 6102 hydrochlo rothiazid e medicatio n Not available Not available Not available 04/19/20242014 5487 RxNorm DANIELLE GOINS null, [place] [facility] 4 11:25:57 6103 sulindac medicatio n Not available Not available Not available 04/19/20242019 08842 RxNorm DANIELLE GOINS null, [place] [facility] 4 11:25:57 6104 sulindac medicatio n Not available Not available Not available 04/19/20242014 64343 RxNorm DANIELLE GOINS null, [place] [facility] 4 11:25:57 6105 nitrofura ntoin medicatio n Not available Not available Not available 04/19/20242021 7454 RxNorm DANIELLE GOINS null, [place] [facility] 4 11:25:57 6106 povidone- iodine medicatio n rash severe Not available 04/19/20242019 8611 RxNorm DANIELLE GOINS null, [place] [facility] 4 11:25:57 6107 Betadine medicatio n Not available Not available Not available 04/19/20242014 0 RxNorm DANIELLE GOINS null, [place] [facility] 4 11:25:57 6108 gabapenti n medicatio n Not available Not available Not available 04/19/20242019 09607 RxNorm DANIELLE GOINS null, [place] [facility] 4 11:25:57 6109 gabapenti n medicatio n Not available Not available Not available 04/19/20242014 28561 RxNorm DANIELLE GOINS [place], [place] [facility] 4 11:25:57 6110 propranol ol medicatio n Not available Not available Not available 04/19/20242021 8787 RxNorm DANIELLE GOINS null, [place] [facility] 4 11:25:57 6111 tolmetin medicatio n Not available Not available Not available 04/19/20242019 11558 RxNorm DANIELLE GOINS null, [place] [facility] 4 11:25:57 6112 ceftriaxo ne medicatio n nausea Not available Not available 04/19/20242019 2193 RxNorm DANIELLE GOINS [place], [place] [facility] 4 11:25:57 6113 Rocephin medicatio n tachycard ia Not available Not available 04/19/2024 9449 RxNorm DANIELLE GOINS null, [place] [facility] 4 11:25:57 6114 Macrobid medicatio n Not available Not available Not available 04/19/2024 35740 1 RxNorm DANIELLE GOINS null, [place] [facility] 4 11:25:57 6115 tolmetin sodium medicatio n Not available Not available Not available 04/19/20242014 05678 RxNorm DANIELLE GOINS null, [place] [facility] 4 11:25:57 6116 Austedo medicatio n Not available Not available Not available 04/19/2024 42257 11 RxNorm DANIELLE GOINS null, [place] [facility] 4 11:25:57 Medications Name Sig Start Date Stop Date Status Note LastModified by Organization Details LastModified Time morphine 7.5 DISPENSE IN 20 ML FOR INTRATHE RICHARD PUMP INFUSION 2023 active Not Available Not Available Not Avai lable morphine 7.5 For intrathe richard use 2022 active Not Available Not Available Not Avai lable BUPIVACAI NE 7.5 DISPENSE IN 20 ML FOR INTRATHE RICHARD PUMP INFUSION 12/21 completed INCORREC T IT MEDICATI ON Not Available Not Available Not Available morphine 7.5 DISPENSE IN 20 ML FOR INTRATHE RICHARD PUMP INFUSION 2023 active Not Available Not Available Not Avai lable morphine 7.5 DISPENSE IN 20 ML FOR INTRATHE RICHARD PUMP INFUSION 2023 active Not Available Not Available Not Avai lable cyclobenz aprine 10 mg tablet 03/04 completed Not Available Not Available Not Available furosemid e 40 mg tablet TAKE 1 TABLET BY MOUTH EVERY DAY AT 9 IN THE MORNING active Not Available Not Available No t Available primidone 50 mg tablet take 1 tablet by oral route 3 times a day 03/04 completed Not Available Not Available Not Available oxcarbaze pine 150 mg tablet 03/04 completed Not Available Not Available Not Available nystatin 100,000 unit/mL oral suspensio n TAKE FIVE (5) ML BY MOUTH THREE (3) TIMES DAILY active Not Available Not Available No t Available clonidine HCl 0.1 mg tablet TAKE ONE (1) TABLET BY MOUTH TWICE DAILY active Not Available Not Available No t Available acetamino phen 325 mg tablet 650 mg by oral route. 07/11 completed Not Available Not Available Not Available carvedilo l 6.25 mg tablet TAKE ONE (1) TABLET BY ORAL ROUTE TWO (2) TIMES PER DAY WITH FOOD active Not Available Not Available No t Available nitrofura ntoin macrocrys americo 50 mg capsule 50 mg by oral route. 10/19 completed Not Available Not Available Not Available doxycycli ne hyclate 100 mg capsule TAKE ONE (1) CAPSULE BY MOUTH TWICE DAILY FOR ONE WEEK active Not Available Not Available No t Available carvedilo l 12.5 mg tablet active Not Available Not Available Not Available tizanidin e 2 mg tablet TAKE ONE (1) TABLET EVERY DAY BY MOUTH active Not Available Not Available No t Available clindamyc in HCl 300 mg capsule TAKE 1 CAPSULE BY MOUTH THREE (3) TIMES DAILY active Not Available Not Available No t Available trazodone 50 mg tablet 03/04 completed Not Available Not Available Not Available cetirizin e 10 mg tablet Take 1 tablet every day by oral route. active Not Available Not Available No t Available biotin 5 mg capsule 06/12 completed Not Available Not Available Not Available tizanidin e 4 mg tablet 4 mg by oral route. 09/21 completed Not Available Not Available Not Available benzonata te 200 mg capsule Take 1 capsule 3 times a day by oral route as needed for 7 days. 06/11 completed Not Available Not Available Not Available metoprolo l succinate ER 50 mg tablet,ex tended release 24 hr TAKE 1 TABLET BY MOUTH EVERY DAY active Not Available Not Available No t Available valacyclo vir 1 gram tablet TAKE ONE (1) TABLET THREE (3) TIMES A DAY BY ORAL ROUTE FOR 7 DAYS. 03/01 completed Not Available Not Available Not Available ranitidin e 300 mg tablet 03/04 completed Not Available Not Available Not Available sucralfat e 1 gram tablet Take 1 tablet twice a day by oral route for 90 days. active Not Available Not Available No t Available lisinopri l 20 mg tablet active Not Available Not Available Not Available ondansetr on HCl 4 mg tablet TAKE 1 TABLET EVERY DAY NEEDED active Not Available Not Available No t Available alendrona te 70 mg tablet Take 1 tablet every week by oral route for 90 days. 07/26 completed Not Available Not Available Not Available prednison e 5 mg tablet TAKE FOUR (4) TABLETS BY MOUTH FOR FIVE (5) DAYS THEN TAKE THREE (3) TABLETS FOR FIVE (5) DAYS THEN TAKE 2 TABLETS FOR FIVE (5) DAYS THEN TAKE 1 TABLET FOR FIVE (5) DAYS THEN OFF active Not Available Not Available No t Available sulindac 150 mg tablet 03/04 completed Not Available Not Available Not Available leflunomi de 10 mg tablet TAKE 1 TABLET BY MOUTH EVERY DAY active Not Available Not Available No t Available hydroxyzi ne HCl 50 mg tablet TAKE 1 TABLET BY MOUTH THREE (3) TIMES DAILY NEEDED active Not Available Not Available No t Available clopidogr el 75 mg tablet TAKE 1 TABLET BY MOUTH EVERY DAY 05/06 completed Not Available Not Available Not Available fexofenad ine 180 mg tablet 03/04 completed Not Available Not Available Not Available ciproflox acin 250 mg tablet active Not Available Not Available No t Available amlodipin e 5 mg tablet TAKE ONE (1) TABLET BY MOUTH TWICE DAILY active Not Available Not Available No t Available methotrex ate sodium 25 mg/mL injection solution INJECT 0.8 MILLILIT ER BY SUBCUTAN EOUS ROUTE EVERY WEEK active Not Available Not Available No t Available ciproflox acin 500 mg tablet TAKE ONE (1) TABLET EVERY 12 HOURS BY ORAL ROUTE FOR 10 DAYS. active Not Available Not Available No t Available sulfameth oxazole 800 mg-trimet hoprim 160 mg tablet TAKE ONE (1) TABLET EVERY 12 HOURS BY ORAL ROUTE FOR 7 DAYS. active Not Available Not Available No t Available aspirin 81 mg tablet,de layed release TAKE 1 TABLET BY MOUTH EVERY DAY active Not Available Not Available No t Available leflunomi de 20 mg tablet active Not Available Not Available Not Available tramadol 50 mg tablet TAKE 1 TABLET BY MOUTH THREE (3) TIMES DAILY FOR PAIN active Not Available Not Available No t Available amitripty line 50 mg tablet 50 mg by oral route. 09/30 completed Not Available Not Available Not Available acetamino phen 500 mg tablet 500 mg by oral route. 05/05 completed Not Available Not Available Not Available spironola ctone 25 mg tablet TAKE 1 TABLET BY MOUTH EVERY DAY active Not Available Not Available No t Available ketorolac 30 mg/mL (1 mL) injection solution Inject 1 mL by intramus cular route for 1 day. 06/11 completed Not Available Not Available Not Available ondansetr on 8 mg disintegr ating tablet active Not Available Not Available Not Available orphenadr ine citrate 30 mg/mL injection solution Inject 2 mL every 12 hours by intramus cular route. 07/26 completed Not Available Not Available Not Available baclofen 20 mg tablet Take 1 tablet every day by oral route for 90 days. active Not Available Not Available No t Available oxycodone -acetamin ophen 5 mg-325 mg tablet TAKE ONE (1) TABLET TWICE A DAY BY ORAL ROUTE. active Not Available Not Available No t Available methenami ne hippurate 1 gram tablet 10/19 completed Not Available Not Available Not Available alprazola m 0.25 mg tablet 0.25 mg by oral route. 07/11 completed Not Available Not Available Not Available primidone 250 mg tablet one tablet in AM and half tablet in PM active Not Available Not Available No t Available methocarb rosa 750 mg tablet TAKE 1 TABLET BY MOUTH EVERY NIGHT AT BEDTIME active Not Available Not Available No t Available oxycodone -acetamin ophen 10 mg-325 mg tablet Take 1 tablet 4 times a day by oral route. active Not Available Not Available No t Available tamsulosi n 0.4 mg capsule TAKE 1 CAPSULE BY MOUTH DAILY active Not Available Not Available No t Available trazodone 100 mg tablet TAKE 1 TABLET BY MOUTH ONCE DAILY AT BEDTIME active Not Available Not Available No t Available Valium 5 mg tablet Take 1 tablet 3 times a day by oral route. 2023 active Not Available Not Available Not Avai lable baclofen 10 mg tablet Take 1 tablet twice a day by oral route for 90 days. active Not Available Not Available No t Available dexametha sone 2 mg tablet TAKE ONE (1) TABLET EVERY DAY BY ORAL ROUTE FOR FIVE (5) DAYS. active Not Available Not Available No t Available cephalexi n 500 mg capsule TAKE ONE (1) CAPSULE EVERY 8 HOURS BY ORAL ROUTE FOR 10 DAYS. active Not Available Not Available No t Available pantopraz ole 40 mg tablet,de layed release TAKE 2 TABLETS EVERY DAY active Not Available Not Available No t Available nortripty line 10 mg capsule 10/19 completed Not Available Not Available Not Available buspirone 10 mg tablet Take 1 tablet every day by oral route at noon for 60 days. active Not Available Not Available No t Available methylcel lulose (laxative ) 500 mg tablet 500 mg by oral route. 06/11 completed Not Available Not Available Not Available lisinopri l 10 mg tablet take 1 tablet (10 mg) by oral route once daily 03/04 completed Not Available Not Available Not Available nitroglyc keny 0.4 mg sublingua l tablet DISSOLVE 1 TABLET UNDER THE TONGUE EVERY 5 MINUTES UNTIL CHEST PAIN STOPS OR HEADACHE active Not Available Not Available No t Available sulfameth oxazole 200 mg-trimet hoprim 40 mg/5 mL oral suspensio n 03/04 completed Not Available Not Available Not Available docusate sodium 100 mg capsule 200 mg by oral route. 05/05 completed Not Available Not Available Not Available gabapenti n 300 mg capsule 03/04 completed Not Available Not Available Not Available sertralin e 25 mg tablet TAKE ONE-HALF TABLET BY MOUTH EVERY DAY X 7 DAYS, THEN TAKE ONE TABLET BY MOUTH EVERY DAY X 7 DAYS, THEN TAKE TWO TABLETS BY MOUTH EVERY DAY active Not Available Not Available No t Available buspirone 7.5 mg tablet TAKE 1 TABLET BY MOUTH TWICE DAILY 07/26 completed Not Available Not Available Not Available omeprazol e 20 mg capsule,d elayed release 20 mg by oral route. 06/11 completed Not Available Not Available Not Available folic acid 1 mg tablet TAKE ONE (1) TABLET BY ORAL ROUTE EVERY DAY active Not Available Not Available No t Available montel[address] st 10 mg tablet 10 mg by oral route. 04/14 completed Not Available Not Available Not Available hydroxyzi ne HCl 25 mg tablet active Not Available Not Available No t Available lisinopri l 5 mg tablet 40 mg by oral route. 06/16 completed Not Available Not Available Not Available furosemid e 20 mg tablet Take 1 tablet every day by oral route as needed for 90 days. active Not Available Not Available No t Available gabapenti n 100 mg capsule TAKE ONE (1) CAPSULE BY ORAL ROUTE THREE (3) TIMES EVERY DAY active Not Available Not Available No t Available metoprolo l succinate ER 25 mg tablet,ex tended release 24 hr TAKE 0.5 TABLETS EVERY DAY BY MOUTH active Not Available Not Available No t Available ergocalci ferol (vitamin D2) 1,250 mcg (50,000 unit) capsule TAKE 1 CAPSULE (50,000 UNIT) BY ORAL ROUTE ONCE WEEKLY active Not Available Not Available No t Available dexametha sone sodium phosphate 4 mg/mL injection solution Inject 1 mL by intramus cular route for 1 day. 06/11 completed Not Available Not Available Not Available ketorolac 60 mg/2 mL intramusc ular solution Inject 1 mL every day by intramus cular route for 1 day. 10/24 completed Not Available Not Available Not Available celecoxib 100 mg capsule Take 1 capsule twice a day by oral route as needed for 30 days. 09/10 completed Not Available Not Available Not Available lisinopri l 40 mg tablet TAKE ONE (1) TABLET BY MOUTH TWICE DAILY active Not Available Not Available No t Available ondansetr on 4 mg disintegr ating tablet active Not Available Not Available Not Available cefdinir 300 mg capsule 03/04 completed Not Available Not Available Not Available colestipo l 1 gram tablet TAKE ONE (1) TABLET BY MOUTH EVERY DAY active Not Available Not Available No t Available doxycycli ne hyclate 100 mg tablet 10/19 completed Not Available Not Available Not Available loratadin e 10 mg tablet 10 mg by oral route. 06/12 completed Not Available Not Available Not Available amoxicill in 875 mg-potass ium clavulana te 125 mg tablet 03/04 completed Not Available Not Available Not Available amoxicill in 500 mg-potass ium clavulana te 125 mg tablet TAKE ONE (1) TABLET TWICE A DAY BY ORAL ROUTE FOR 7 DAYS. active Not Available Not Available No t Available buspirone 15 mg tablet Take 1 tablet twice a day by oral route. active Not Available Not Available No t Available Benadryl 25 mg capsule prn 03/04 completed Not Available Not Available Not Available Tigan 300 mg capsule Take 1 capsule 3 times a day by oral route as needed for 7 days. 06/11 completed Not Available Not Available Not Available Premarin 0.625 mg/gram vaginal cream INSERT 0.5G INTRAVAG INALLY NIGHTLY FOR THE FIRST MONTH OF THERAPY, AND THEN GO TO TWICE WEEKLY FOR MAINTENA NCE. active Not Available Not Available No t Available aripipraz ole 5 mg tablet TAKE 0.5 TABLETS EVERY DAY BY ORAL ROUTE DIRECTED FOR 30 DAYS. 11/01 completed Not Available Not Available Not Available nitrofura ntoin monohydra te/macroc rystals 100 mg capsule active Not Available Not Available Not Available duloxetin e 20 mg capsule,d elayed release TAKE ONE CAPSULE BY MOUTH TWICE DAILY X 7 DAYS THEN TAKE ONE CAP BY MOUTH EVERY DAY X 7 DAYS, THEN STOP. active Not Available Not Available No t Available duloxetin e 30 mg capsule,d elayed release Take 1 capsule every day by oral route for 90 days. active Not Available Not Available No t Available duloxetin e 60 mg capsule,d elayed release TAKE 1 CAPSULE EVERY DAY active Not Available Not Available No t Available BD Integra Syringe 3 mL 25 gauge x 5/8 USE WITH WEEKLY METHOTRE XATE active Not Available Not Available No t Available tizanidin e 4 mg capsule take 1 capsule by oral route 2 times a day 03/04 completed Not Available Not Available Not Available Carafate take 1 tablet by oral route QID (1 GM) 10/19 completed Not Available Not Available Not Available levocetir izine 5 mg tablet 5 mg by oral route. 06/11 completed Not Available Not Available Not Available nebivolol 5 mg tablet 5 mg by oral route. 06/11 completed Not Available Not Available Not Available diclofena c 1 % topical gel applicat ion once at bedtime 04/10 completed Not Available Not Available Not Available Savella 100 mg tablet 04/14 completed Not Available Not Available Not Available Savella 12.5 mg (5)-25 mg(8)-50m g(42) tablets in a dose pack 03/04 completed Not Available Not Available Not Available ketorolac 30 mg/mL injection solution Inject 2 mL every day by intraven ous route for 1 day. 07/26 completed Not Available Not Available Not Available guanfacin e ER 1 mg tablet,ex tended release 24 hr TAKE 1 TABLET BY MOUTH EVERY NIGHT AT BEDTIME active Not Available Not Available No t Available Zyrtec 10 mg capsule Take by oral route. active Not Available Not Available No t Available Prolia 60 mg/mL subcutane ous syringe Inject 1 mL by subcutan eous route. 10/19 completed Not Available Not Available Not Available Fiber Supplemen t (inulin) 2 gram chewable tablet chew 8 tablets by oral route daily 03/04 completed Not Available Not Available Not Available duloxetin e 40 mg capsule,d elayed release TAKE ONE (1) CAPSULE TWICE A DAY BY ORAL ROUTE FOR 7 DAYS. active Not Available Not Available No t Available Phospho-T rin Neutral 250 mg tablet TAKE 1 TABLET BY MOUTH TWICE DAILY 07/26 completed Not Available Not Available Not Available Vitals Date Recorded Body height Heart rate Body mass index (BMI) Body weight Oxygen saturation Oxygen saturation in Arterial blood by Pulse oximetry Pain severity - 0-10 verbal numeric rating [Score] - Reported Systolic blood pressure Diastolic blood pressure Provider Name and Address Organization Details Last Updated DateTime 4 152.4 cm 76 /min 23.8 kg/m2 15741.2 7 g 96 % 96 % 7 146 mm[Hg] 82 mm[Hg] DANIELLE GOINS [place] [facility] 4 11:25:35 Date Recorded Body height Provider Name an d Address Organization Details Last Updated DateTime 05/06/2024 152.4 cm Leidy Combsdonado [place] [facility] 05/06/2024 08:18:31 Date Recorded Body height Heart rate Respiratory rate Oxygen saturation Oxygen saturation in Arterial blood by Pulse oximetry Pain severity - 0-10 verbal numeric rating [Score] - Reported Systolic blood pressure Diastolic blood pressure Provider Name and Address Organization Details Last Updated DateTime 5 152.4 cm 76 /min 18 /min 96 % 96 % 7 146 mm[Hg] 82 mm[Hg] Leidy Bonilla [place] [facility] 5 10:15:05 Social History Question Answer Notes LastModified by Organizat ion Details LastModified Time Tobacco Smoking Status Never Smoker DANIELLE GOINS null, [place] [facility] 04/19/2024 11:26:42 What Is Your Level Of Alcohol Consumption? None [email or web address] Information not available 04/19/2024 In The 14 Days Before Symptom Onset, Have You Had Close Contact With A Laboratory-confirm ed COVID-19 While That Case Was Ill? No [email or web address] Information n ot available 04/19/2024 In The 14 Days Before Symptom Onset, Have You Had Close Contact With A Person Who Is Under Investigation For COVID-19 While That Person Was Ill? No [email or web address] Information not available 04/19/2024 Have You Been To An Area Known To Be High Risk For COVID-19? No Information not available 04/19/2024 Do You Use Any Illicit Or Recreational Drugs? No [email or web address] Information not available 04/19/2024 Do You Or Have You Ever Used Any Other Forms Of Tobacco Or Nicotine? No [email or web address] Information not available 04/19/2024 Sex: Unknown Functional Status None recorded. Mental Status None recorded. Family History Nothing Reported. Medical History No medical history recorded. Gynecological HistoryNo gynecological history recorded. Obstetrics History GPAL:G 0 P 0 0 0 0 Past Encounters Encounter ID Performer Location Encounter Start Date Encounter Closed Date Diagnosis/Indication Diagnosis SNOMED-CT Code Diagnosis ICD10 Code Diagnosis Note [id number] Chris Garcia MD [address] [place] [address] 04/19/2024 10:24:45 04/19/2024 12:37:29 Radiculopathy due to lumbar intervertebral disc disorder 6019050343 11041 M51.16 Degenerati on of lumbar intervertebral disc 80893494 M51.369 Lumbar radiculopathy 128 420373 M54.16 Lumbar spondylosis 53324 0009 M47.896 [id number] JAMI WALSH [address] [place] [address] 05/06/2024 08:12:28 05/06/2024 13:55:22 Lumbar radiculopathy 165949976 M54.16 Arthritis 8854120 M19.90 Fibromyalgia 998082829 M 79.7 Neuropathy 121300806 G62 .9 Osteoporosis 66129167 M8 1.0 Radiculopa thy due to lumbar intervertebral disc disorder 9586649667 29639 M51.16 [id number] Chris Garcia MD [address] [place] [address] 07/08/2024 10:11:19 07/08/2024 10:51:04 Moderate recurrent major depression 00856792 F33.1 Radiculopa thy due to lumbar intervertebral disc disorder 6936888858 28641 M51.16 Lumbar radiculopathy 128 386528 M54.16 Lumbar spondylosis 83064 0009 M47.896 Fibromyalgia 915637124 M 79.7 Degenerati on of lumbar intervertebral disc 45963827 M51.369 Long-term drug therapy 630723191 Z79.891 Continuous opioid dependence 671611180 F11.20 Health Concerns Section Related Observation LastModified by Organization Detai ls LastModified Time None Recorded Concern Status LastModified by Organization Details LastModified Time None Recorded Advance Directives Directive None Recorded Payers Encounter Date Sequence Insurance Name Policy Number Policy Carrera Covered Member ID Carrera Member ID Guarantor Name 04/19/2024 2 [employer] (MEDICARE REPLACEMENT/A DVANTAGE - PPO) Padmini Cueva Fearis [id number] Padmini Fearis 05/06/2024 2 [employer] (MEDICARE REPLACEMENT/A DVANTAGE - PPO) Padmini Cueva Fearis [id number] Padmini Fearis 07/08/2024 2 [employer] (MEDICARE REPLACEMENT/A DVANTAGE - PPO) Padmini Ceuva Fearis [id number] Padmini Fearis 07/08/2024 1 [place] Padmini Cueva Fearis [id number] Padmini Fearis OBGyn Episode No OBEpisode recorded.
[2024-09-08 09:54] VITALS: BMI 22.6
--- NOTE | 2024-09-08 10:09 | ECG_ITS ---
APPROVED REPORT Exam: Resting ECG HR:60 bpm ECG Measurements Heart Rate 60 AXES CA 185 P 47 QRSd 86 QRS 51 QT 399 T 56 QTc 399 Conclusion SINUS RHYTHM NORMAL ECG UNCONFIRMED REPORT Electronically signed by : Wiley Osei MD 09/09/2024 08:43:12
[2024-09-08 10:28] LABS: Basophils # 0.1 K/mm3 (0-0.2); Basophils % 1.5 % (0.1-2.0); Eosinophils # 0.1 K/mm3 (0.0-0.4); Eosinophils % 2.6 % (0.1-12.0); Hematocrit 36.9 % (37.0-47.0); Hemoglobin 11.6 g/dL (12.2-16.2); Lymphocytes # 1.1 K/mm3 (0.7-4.5); Lymphocytes % 27.9 % (10-50); Mean Corpuscular HGB Conc 31.4 g/dL (31.8-35.4); Mean Corpuscular Hemoglobin 30.4 pg (27.0-31.2); Mean Corpuscular Volume 96.6 fl (81-99); Mean Platelet Volume 11.9 fl (7.4-10.4); Monocytes # 0.5 K/mm3 (0.1-1.0); Neutrophils # 2.2 K/mm3 (1.8-7.8); Neutrophils % 55.7 % (37.0-80.0); Nucleated Red Blood Cells # 0 10^3/uL; Nucleated Red Blood Cells % 0 %; Platelet Count 177 K/mm3 (142-424); Red Blood Count 3.82 M/mm3 (4.20-5.40); Red Cell Distribution Width 12.7 % (11.5-17.5); Red Cell Distribution Width-SD 45.1 fL; White Blood Count 3.9 K/mm3 (4.8-10.8)
[2024-09-08 10:38] LABS: Chloride 106 mmol/L (98-107); Potassium 4.5 mmoL/L (3.5-5.1); Sodium 139 mmol/L (136-145)
[2024-09-08 10:41] LABS: Anion Gap 8.5 mEq/L (5-15); Blood Urea Nitrogen 14 mg/dl (7-17); Carbon Dioxide 29 mmol/L (22.0-30.0); Creatinine Clearance Estimated 39 mL/min (50-200); Estimated Glomerular Filt Rate 81 ml/min (>60); GFR (African American) 98 ML/MIN (>60); Glucose 77 mg/dl (74-100)
== END 2024-09-08 23:59 | disposition home or self-care (01) ==
LOC: PREOP 09:37
PROVIDERS: PCP Physician Assistant; Visit Provider Anesthesiology
DX: I10 Essential (primary) hypertension (principal)
CPT/HCPCS: 80048; 85025; 93005

== ENCOUNTER 2024-09-10 08:17 | Day surgery (SDC) | payer MEDICARE, OTHER, SELFPAY ==
[2024-09-08 12:47] VITALS: BMI 22.6
[2024-09-10 09:57] VITALS: BP 174/75; PULSE 61; RESP 16; TEMP 36.6; O2SAT 94
[2024-09-10] MEDS: LACTATED RINGERS 1000ML 1,000 ML 25 ML IV (10:08)
[2024-09-10] MEDS: VANCOMYCIN HCL 1,000 MG in 0.9 % SODIUM CHLORIDE 250 ML 125 MG IV (10:08)
--- NOTE | 2024-09-10 10:45 | P.PNANES_ITS ---
[facility] Disclaimer: The information contained in this section may have been updated after the patient was seen, as this information can be updated by other users. Medical History Macular degeneration History of gastrectomy CAD (coronary artery disease) Anxiety Vitamin D deficiency GERD (gastroesophageal reflux disease) HTN (hypertension) Depression Surgical History H/O: hysterectomy History of partial gastrectomy History of cholecystectomy History of hernia repair History of back surgery History of coronary artery stent placement Family History Other Family history of cancer Family history of diabetes mellitus Family history of heart disease Social History Smoking Status: Never smoker alcohol intake: never substance use type: denies use current occupational status: retired Travel in the last 8 weeks: None household members: spouse housing: house caffeine: Yes Have you lived/traveled outside US in past 30 days?: No Contact w/someone who lives/traveled outside US past 30 days?: No Exposure to someone with infectious disease in past 14 days?: No Do you have a fever (greater than 100.4 F or 38 C)?: No Have you tested positive for COVID-19: No Exposed to someone with COVID-19 in past 14 days?: No Do you have a sore throat?: No Do you have a cough?: No Do you have any weakness?: No Do you have any diarrhea?: No Are you experiencing any unusual bleeding?: No Do you have any muscle aches/pain?: No Do you have any abdominal pain?: No Are you experiencing loss of taste or smell?: No [facility] Anesthesia Checklist Patient Identification Patient Identification: Arm Band Structural Data Admitted From: Home Planned Operative Procedure/s: Pain Pump Explant + Implant Consent for Planned Operative Procedure(s) Verified: Yes Verified Documents: Surgical Consent and History and Physical NPO Status Verified Time NPO: 00:00 Additional verifications Anesthesia Reactions: Yes (nausea) Hx Blood Transfusions: No Blood Transfusion Reaction: No Airway Assessment Mallampati Score:: Class II C-Spine Mobility Assessed: Yes TMJ Mobility Assessed: Yes Dentition: Good Dentition Neurological Assessment Level of Consciousness: Awake, Alert and Appropriate Anesthesia Plan Anesthesia Risk discussed: Yes Anesthesia Plan: Verified ASA Class: III Anesthesia Type: MAC
[2024-09-10] MEDS: GENTAMICIN 80 MG/2 ML VIAL (11:54)
[2024-09-10] MEDS: LIDOCAINE 1% W/EPI 1:100,000 20ML VIAL 40 ML (11:54)
[2024-09-10] MEDS: SODIUM CHLORIDE 0.9% 20ML VIAL 40 ML IV (11:54)
[2024-09-10 12:40] VITALS: BP 152/81; PULSE 63; RESP 16; TEMP 36.2; O2SAT 95
[2024-09-10 12:50] VITALS: BP 163/86; PULSE 62; RESP 16; O2SAT 97
[2024-09-10 13:00] VITALS: BP 159/77; PULSE 60; RESP 16; O2SAT 97
[2024-09-10 13:10] VITALS: BP 165/70; PULSE 60; RESP 16; O2SAT 97
--- NOTE | 2024-09-10 14:47 | P.OP_ITS ---
Date of procedure: 09/10/24 Pre-op Diagnosis:: Nonfunctioning intrathecal pain pump system Post-op Diagnosis:: Same Procedure performed:: Replacement intrathecal pain pump system with new tunneled intrathecal catheter and replacement pain pump generator Surgeon:: Chris aGrcia MD [employer] MANAG[employer] TECHNICIAN:: Loi Thomas Anesthesia: MAC Estimated blood loss (mL): 5 Clinical Note:: This patient is a pleasant 79-year-old white female who we have been treating for low back pain with lumbar radiculopathy symptoms. She has a nonfunctioning Flowonix pain pump system in place. This pump is turned off. We will replace her pain pump system today with a new tunneled intrathecal catheter and pain pump generator placement Operative findings:: None Operative note:: Informed consent was obtained risk and benefits of the procedure were explained to the patient. The patient was taken the operating placed prone on the procedure table. She was prepped and draped in sterile fashion. The skin is subcutaneous tissues overlying the pain pump generator were anesthetized using lidocaine. I made incision dissected out the pain pump generator. We disconnected the catheter and tied off with 0 silk ties x 3. C-arm fluoroscopy was used to view the lumbar spine. The skin and subcutaneous tissues adjacent to the L4-5 and L5-S1 interspace were anesthetized using lidocaine. I made incision dissected down to the lumbar paraspinous fascia. A 17-gauge spinal needle was inserted and advanced into the L4-5 interspace until clear CSF was obtained. After this intrathecal catheter was inserted and advanced very easily to the T8 vertebral body. The catheter was in good position. It was midline and posterior. The stylette of the catheter and the needle were withdrawn. The catheter was secured to the fascia with an anchor device and 2-0 Prolene. I filled the pump with 20 mL of intrathecal Dilaudid 0.5 mg/mL. I tunneled the catheter from the back to the pump pocket attached catheter to the pump. We are able to freely withdraw clear CSF through the sideport. The pump was then placed in the pocket with an antibiotic pouch. Both incisions were then closed with 2-0 Vicryl followed by 4-0 nylon and marek. Patient tolerated the procedure well with no complications. The pump was interrogated and started at 50 mcg/day. Refill date is 03/06/2025. Patient was discharged home neurologic intact with good relief of pain symptoms. Plan and disposition: Will follow-up with this patient in 1 week for wound check and reprogramming. Will follow-up in 2 to 3 weeks for suture and staple removal. Condition: stable Disposition: PACU Complications:: none
== END 2024-09-10 13:37 | disposition home or self-care (01) ==
PROVIDERS: PCP Physician Assistant; Visit Provider Anesthesiology
PROC: (CPT 62350; principal; 2024-09-10 10:00)
DX: T85.695A Other mechanical complication of other nervous system device, implant or graft, initial encounter (principal); M54.16 Radiculopathy, lumbar region; Y83.8 Other surgical procedures as the cause of abnormal reaction of the patient, or of later complication, without mention of misadventure at the time of the procedure
CPT/HCPCS: 62350; 62362; 96374; C1755; C1772; J1580; J2003; J2004; J2704; J3010; J3370; J7050; J7120

== ENCOUNTER 2024-09-17 15:03 | Outpatient (POV) | payer MEDICARE, OTHER, SELFPAY ==
--- OUTSIDE RECORDS SUMMARY | 2024-09-17 15:06 | XMS_ITS | Data Portability ---
Author Organization [place] [facility] Address [address] [place] [address] Assessment Encounter Date Assessment Date Assessment LastModified [...] home refill. Will send this to the [facility] home refill nurse. She does have antalgic gait today. Motor strength of lower extremities is 5/5. There is no gross sensory deficit. Jesse and drug screen are all appropriate. Will see her back in 6 months. We will communicate with the [facility] home health nurse for adjustments and [...] of her nonfunctioning pain pump tomorrow in [place], she is requesting to be rescheduled due [...] 29, she states this was not helpful. [facility] #[id number] was reviewed and was appropriate. Plan: We [...] and regulations. Patient is located in the [facility] and the treating medical provider is located in the [facility]. The telephone call was conducted for approximately 11 mins. [email or web address] Not available 05/06/2024 11:34:12 07/08/2024 07/08/2024 This patient has a intrathecal bupivacaine pain pump that is currently been turned off. She was scheduled for replacement of her pain pump system at [facility] however had to cancel her surgery due to an upper respiratory infection. Previously when she was on morphine she had issues with nightmares. It did give her adequate pain relief. Bupivacaine did not give her adequate pain relief. She would like to go back to an opioid and to have her pump changed out. We will call [facility] to get her back on the surgery [...] Percocet 5 mg-325 mg tablet [address], [address], 21:17:51 Valium 5 mg tablet [address], [address], 12:58:05 Percocet 10 mg-325 mg tablet [address], [address], 12:58:05 Patient TargetsNo targets recorded. Patient Instructions Encounter Date Encounter Id Patient Instructions Last Modified By Organization Details Last Modified Time 04/19/2024 [id number] back pain: care instructions abux Not available [...] Details Recorded Time Moderate recurrent major depression 96539744 Active DANIELLE GOINS null, [place] [facility] 4 11:26:13 Recurrent urinary tract infection 320351136 Active 2018 DANIELLE GOINS [place] [facility] 4 11:26:13 Fibromyalgi a 766349818 Active 2018 DANIELLE GOINS [place] [facility] 4 11:26:13 Generalized anxiety disorder 53118637 Active DANIELLE GOINS [place] [facility] 4 11:26:13 Motor tic disorder 112958836 Active DANIELLE GOINS [place] [facility] 4 11:26:13 Gastroesoph ageal reflux disease 620710637 Active 2018 DANIELLE GOINS [place] [facility] 4 11:26:13 Urethral stenosis 119782400 Active 2018 DANIELLE GOINS [place] [facility] 4 11:26:13 Chest pain 01023386 Active DANIELLE GOINS [place] [facility] 4 11:26:13 Arthritis 7617671 Active 2018 DANIELLE GOINS [place] [facility] 4 11:26:13 Hypertensiv e disorder 08836847 Active 2018 DANIELLE GOINS [place] [facility] 4 11:26:13 Neuropathy 863115064 Active 2018 DANIELLE GOINS [place] [facility] 4 11:26:13 Atrophic vaginitis 37673227 Active 2018 DANIELLE GOINS [place] [facility] 4 11:26:13 Coronary arterioscle rosis 66410690 Active 2018 DANIELLE GOINS [place] [facility] 4 11:26:13 Hyperlipide minal 14142610 Active 2018 DANIELLE GOINS [place] [facility] 4 11:26:13 History of cardiac catheteriza tion 9174228774637 0 Active DANIELLE GOINS [place] [facility] 4 11:26:13 Osteoporosi s 09310121 Active 2018 DANIELLELEONIDAS GOINS [place] [facility] 4 11:26:13 Septic shock 63909011 Active DANIELLE GOINS [place] [facility] 4 11:26:13 Lumbar radiculopat hy 650312691 Active 2023 Chris Garcia MD [address] [facility],[address], [address], [place] [facility] 4 12:46:58 Lumbar spondylosis 905732220 Active 2023 Chris Garcia MD [address] [facility],[address], [address], [place] [facility] 4 12:46:59 Long-term drug therapy Active 2024 Chris Garcia MD [address],[place] [address] [place] [address], [address], [place] [facility] 5 21:20:11 Continuous opioid dependence 328184037 Active 2024 Chris Garcia MD [address] [facility] [address], [address], [place] [facility] 5 21:20:12 Radiculopat hy due to lumbar interverteb ral disc disorder 7926181507057 05 Active 2022 STEPHANIE LEONARDO null, [place] [facility] 3 15:10:23 Problem Notes None recorded. Procedures Surgical History Date Name Laterality Status Provider Name and Address Organization Details Recorded Time 04/19/2024 Pump Refill completed Chris Garcia MD [address] [facility],[address], [address], [place] [facility] 04/19/2024 [...] Not available Not available Not available 04/19/20242019 05991 RxNorm DANIELLE GOINS null, [place] [facility] 4 11:25:57 6104 sulindac medicatio n Not available Not available Not available 04/19/20242014 32462 RxNorm DANIELLE GOINS null, [place] [facility] [...] Not available Not available Not available 04/19/20242019 04480 RxNorm DANIELLE GOINS [place] [facility] 4 11:25:57 6109 gabapenti n medicatio n Not available Not available Not available 04/19/20242014 58201 RxNorm DANIELLE GOINS [place] [facility] 4 11:25:57 6110 propranol ol medicatio n Not available Not available Not available 04/19/20242021 8787 RxNorm DANIELLE GOINS [place] [facility] 4 11:25:57 6111 tolmetin medicatio n Not available Not available Not available 04/19/20242019 18041 RxNorm DANIELLE GOINS [place], [place] [facility] [...] Not available Not available Not available 04/19/2024 88223 1 RxNorm DANIELLE GOINS [place] [facility] 4 11:25:57 6115 tolmetin sodium medicatio n Not available Not available Not available 04/19/20242014 50225 RxNorm DANIELLE GOINS [place] [facility] 4 11:25:57 6116 Austedo medicatio n Not available Not available Not available 04/19/2024 30503 11 RxNorm DANIELLE GOINS null, [place] - [...] 4 152.4 cm 76 /min 23.8 kg/m2 90167.2 7 g 96 % 96 % 7 [...] Is Your Level Of Alcohol Consumption? None [email or web address] Information not available 04/19/2024 In The 14 Days Before Symptom Onset, Have You Had Close Contact With A Laboratory-confirm ed COVID-19 While That Case Was Ill? No Information n ot available 04/19/2024 In The 14 Days Before Symptom Onset, Have You Had Close Contact With A Person Who Is Under Investigation For COVID-19 While That Person Was Ill? No Information not available 04/19/2024 Have You Been To An Area Known To Be High Risk For COVID-19? No [email or web address] Information not available 04/19/2024 Do You Use Any Illicit Or Recreational Drugs? No [email or web address] Information not available 04/19/2024 Do You Or Have You Ever Used Any Other Forms Of Tobacco Or Nicotine? No [email or web address] Information not available 04/19/2024 Sex: Unknown Functional Status None recorded. Mental Status None recorded. Family History Nothing Reported. Medical History No medical history recorded. Gynecological HistoryNo gynecological history recorded. Obstetrics History GPAL:G 0 P 0 0 0 0 Past Encounters Encounter ID Performer Location Encounter Start Date Encounter Closed Date Diagnosis/Indication Diagnosis SNOMED-CT Code Diagnosis ICD10 Code Diagnosis Note [id number] Chris Garcia MD [address] [place] [address] 04/19/2024 10:24:45 04/19/2024 12:37:29 Radiculopathy due to lumbar intervertebral disc disorder 9211143579 99428 M51.16 Degenerati on of lumbar intervertebral disc 66437788 M51.369 Lumbar radiculopathy 128 544222 M54.16 Lumbar spondylosis 65388 0009 M47.896 [id number] JAMI WALSH [address] [place] [address] 05/06/2024 08:12:28 05/06/2024 13:55:22 Lumbar radiculopathy 204927962 M54.16 Arthritis 7062647 M19.90 Fibromyalgia 664411536 M 79.7 Neuropathy 007688822 G62 .9 Osteoporosis 11334224 M8 1.0 Radiculopa thy due to lumbar intervertebral disc disorder 4595744657 69539 M51.16 [id number] Chris Garcia MD [address] [place] [address] 07/08/2024 10:11:19 07/08/2024 10:51:04 Moderate recurrent major depression 71429962 F33.1 Radiculopa thy due to lumbar intervertebral disc disorder 2531738317 28803 M51.16 Lumbar radiculopathy 128 804348 M54.16 Lumbar spondylosis 32471 0009 M47.896 Fibromyalgia 651869623 M 79.7 Degenerati on of lumbar intervertebral disc 58934876 M51.369 Long-term drug therapy 442882104 Z79.891 Continuous opioid dependence 159468305 F11.20 Health Concerns Section Related Observation LastModified by Organization Detai ls LastModified Time None Recorded Concern Status LastModified by Organization Details LastModified Time None Recorded Advance Directives Directive None Recorded Payers Encounter Date Sequence Insurance Name Policy Number Policy Carrera Covered Member ID Carrera Member ID Guarantor Name 04/19/2024 2 [employer] (MEDICARE REPLACEMENT/A DVANTAGE - PPO) Padmini Cueva Fearis [id number] Padmini Fearis 05/06/2024 2 [employer] (MEDICARE REPLACEMENT/A DVANTAGE - PPO) Padmini Cueva Fearis [id number] Padmini Fearis 07/08/2024 2 [employer] (MEDICARE REPLACEMENT/A DVANTAGE - PPO) Padmini Cueva Fearis [id number] Padmini Fearis 07/08/2024 1 [place] Padmini Cueva Fearis [id number] Padmini Fearis OBGyn Episode No OBEpisode recorded.
--- OUTSIDE RECORDS SUMMARY | 2024-09-17 15:07 | XMS_ITS | Data Portability ---
Author Organization [place] - [facility] ADMIN Address [address] [place] [address] Care Team Providers Care Membership Counselor Name Role Phone ROLANDO LEDESMA Primary Care Provider [phone] BART SOLIS Certified Ophthalmic Technician Assessment Encounter Date Assessment Date Assessment LastModified by Organization Details LastModified Time 01/21/2024 01/21/2024 history of broke n heart syndrome takotsubo. Her last echocardiogram showed an ejection fraction of 20-25%. She had increased pressures in the heart. She had mild mitral insufficiency. Echocardiogram at outside facility showed the mitral insufficiency was worse although the ejection fraction is improving. Consideration for transesophageal echocardiogram was given to her. I think at this time I would repeat the echocardiogram for performing a transesophageal echocardiogram. As the ejection fraction improves from the broken heart syndrome this should improve her mitral insufficiency. We will repeat the echocardiogram. I will see her back in 3-4 weeks. 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 Essentially normal. Meds and chart reviewed in full today. She feels better. She is on carvedilol. She is on lisinopril. Blood pressure and heart rate look good. Follow-up after the echocardiogram in 3-4 weeks Patient Education was printed, I have reviewed the Past Medical, Family, and Social Histories along with ROS and all orders in today's record, and have noted any changes. Medications, charts and records reviewed in full today. PLAN: Continue carvedilol and lisinopril at current dose Monitor blood pressure and heart rate Echocardiogram Continue other current medications. Continue aggressive risk factor modification. Recommend LDL less than 70. Encouraged regular exercise and activity. 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 Mildly dilated left atrium. Moderate to severe MR. mild AR. consider EMILY to evaluate etiology of MR. LAST ECHO: 01/2023 revealed reduced LVEF of 20% to 25%. Mid anterior wall, mid inferior septum, anterior apex, apical septum, inferior apex are moderately hypokinetic. Trace mitral regurgitation. Elevated PA systolic pressure of 46 mmHg. Pseudonormal left ventricular filling pattern indicative of elevated left atrial pressure. LAST HEART CATH: 01/2023 revealed mild luminal irregularity in the LAD, as well as the RCA. LVEF 25%. Performed by Dr. Solis. KARI Orta LPN, I AM SCRIBING FOR, AND IN THE OFFICE/PRESENCE OF, ALLI BAZZI MD. ALLI Orta M.D. PERFORMED THE SERVICES DESCRIBED IN THIS DOCUMENTATION, SCRIBED BY KARI BYRD LPN IN MY PRESENCE, AND IT IS BOTH ACCURATE AND COMPLETE. This note was dictated using ServiceMesh software. If something is unclear, or does not make sense, please do not hesitate to contact our office at [phone] for clarification. diamond Not available 01/21/2024 12:06:25 06/24/2024 06/24/2024 blood pressure i s very high. It is better but the medicine they placed her on in the emergency room was metoprolol and she is already on carvedilol. I think we should stop the metoprolol and start amlodipine 5 mg twice daily. Get an echocardiogram. That needs to be followed given the mitral insufficiency. It is interesting because she had broken heart syndrome back in January of 2023. She then had a repeat echocardiogram last year which showed moderate to severe mitral insufficiency. This was not seen when her ejection fraction was depressed. We need to follow that up. She does not have a murmur consistent with severe mitral insufficiency. Her EKG shows normal sinus rhythm with poor R-wave progression. Some of the blood pressure issues are likely secondary to the pain she is having. We do not want to bottom her out but we definitely need to get better blood pressure control. We will see her back in 3-4 weeks. All records reviewed. Meds and chart reviewed in full Patient Education was printed, I have reviewed the Past Medical, Family, and Social Histories along with ROS and all orders in today's record, and have noted any changes. Medications, charts and records reviewed in full today. PLAN: Continue carvedilol and lisinopril at current dose Stop metoprolol Start amlodipine 5 mg twice daily Echocardiogram Monitor blood pressure and heart rate Continue other current medications. Continue aggressive risk factor modification. Recommend LDL less than 70. Encouraged regular exercise and activity. EKG today shows normal sinus rhythm with poor R-wave progression but no ST or T-wave changes ECHOCARDIOGRAM: 06/17/2023 - ejection fraction 60-65%. Mildly dilated left atrium. Moderate to severe MR. mild AR. consider EMILY to evaluate etiology of MR. LAST ECHO: 01/2023 revealed reduced LVEF of 20% to 25%. Mid anterior wall, mid inferior septum, anterior apex, apical septum, inferior apex are moderately hypokinetic. Trace mitral regurgitation. Elevated PA systolic pressure of 46 mmHg. Pseudonormal left ventricular filling pattern indicative of elevated left atrial pressure. LAST HEART CATH: 01/2023 revealed mild luminal irregularity in the LAD, as well as the RCA. LVEF 25%. Performed by Dr. Solis. I, ALLI BAZZI M.D. PERFORMED THE SERVICES DESCRIBED IN THIS DOCUMENTATION This note was dictated using ServiceMesh software. If something is unclear, or does not make sense, please do not hesitate to contact our office at [phone] for clarification. [email or web address] Not available 06/24/2024 12:01:55 07/22/2024 07/22/2024 still with some occasional sharp chest pain. Very atypical. Her blood pressure and heart rate has been much better. Fatigue much better. We stopped metoprolol and started amlodipine. She is on carvedilol and lisinopril. Her EKG when she was here last shows normal sinus rhythm with poor R-wave progression and no ST or T-wave changes. No increase in the chest pain. No nitroglycerin use. The echocardiogram shows significant improvement. There was concern is the prior echocardiogram showed severe reduction in left ventricular systolic function which was thought to be broken heart. At that time she also had [id number] mitral insufficiency. The repeat echocardiogram shows ejection fraction 65-70% with diastolic dysfunction. Trivial mitral valve prolapse with moderate mitral insufficiency. Pressures in the harder normal. We will see her back in 8-10 weeks. Meds and chart reviewed in full today. As stated, blood pressure and heart rate are under much better control Patient Education was printed, I have reviewed the Past Medical, Family, and Social Histories along with ROS and all orders in today's record, and have noted any changes. Medications, charts and records reviewed in full today. PLAN: Continue carvedilol and lisinopril at current dose Continue amlodipine at current dose. Blood pressure is under much better control Monitor blood pressure and heart rate Continue other current medications. Continue aggressive risk factor modification. Recommend LDL less than 70. Encouraged regular exercise and activity. Repeat echocardiogram at the six-month lisbeth given the mitral insufficiency Follow-up in Cardiology Clinic in 01-02 ECHO 06/29/24: Estimated ejection fraction is 65-70%. There is mild to moderate concentric hypertrophy of the left ventricle. diastolic dysfunction is noted. There is trivial mitral valve prolapse with moderate mitral insufficiency and normal pressures in the heart ECHOCARDIOGRAM: 06/17/2023 - ejection fraction 60-65%. Mildly dilated left atrium. Moderate to severe MR. mild AR. consider EMILY to evaluate etiology of MR. LAST ECHO: 01/2023 revealed reduced LVEF of 20% to 25%. Mid anterior wall, mid inferior septum, anterior apex, apical septum, inferior apex are moderately hypokinetic. Trace mitral regurgitation. Elevated PA systolic pressure of 46 mmHg. Pseudonormal left ventricular filling pattern indicative of elevated left atrial pressure. LAST HEART CATH: 01/2023 revealed mild luminal irregularity in the LAD, as well as the RCA. LVEF 25%. Performed by Dr. Solis. IALLI M.D. PERFORMED THE SERVICES DESCRIBED IN THIS DOCUMENTATION This note was dictated using ServiceMesh software. If something is unclear, or does not make sense, please do not hesitate to contact our office at [phone] for clarification. diamond Not available 07/23/2024 08:29:10 Plan of Treatment Reminders Order Date Submit Date Provider Last Modified By Organization Details Last Modified Time Details Appointments None recorded. Lab None recorded. Referral None recorded. Procedures None recorded. Surgeries None recorded. Imaging electrocard iogram 2024 025 diamond [facility], [address] [facility] [address], [place], [address], 5 10:21:15 US, echocardiog alejandra, transthorac ic, complete, w/ color flow 2024 025 [email or web address] [facility]), [address] [facility] [address] , [place], [address], 5 07:40:26 electrocard iogram 2023 024 diamond [facility], [address] [facility] [address], [place], [address], 4 12:06:41 Medication Orders amlodipine 5 mg tablet 2024 025 [facility], [address] [place] [address], [address], 5 10:21:17 Patient TargetsNo targets recorded. Patient InstructionsNo instructions recorded. Reason for Referral None Reported. Results Created Date Observation Date Name Description Value Unit Range Abnormal Flag Note LastModifiedBy Organization Detail LastModifiedTime 06/02/19 24 fine needl e aspir ation , thyro id (PROC ) No observ ation record ed. [email or web address] Not Available 2023 11:30:05 06/02/19 24 06/02/2023 audio gram No observ ation record ed. Not Available 2023 12:15:51 12/04/19 24 06/17/2023 US, echoc ardio gram, trans thora cic, compl ete, w/ color flow No observ ation record ed. [facility], [place], [address], 05/17/2024 12:46:42 12/04/19 24 03/20/2023 elect mark norwood am No observ ation record ed. [email or web address] Not Available 2023 07:54:00 01/21/20 24 elect rocar diogr am No observ ation record ed. DOMINGO Al [address], [place], [address], 01/21/2024 10:44:34 01/21/20 24 01/21/2024 elect rocar diogr am No observ ation record ed. Not Available 2023 10:58:33 06/24/19 elect rocar diogr am No observ ation record ed. DOMINGO Al [address], [place], [address], 06/24/2024 10:06:21 06/24/19 25 06/24/2024 elect rocar diogr am No observ ation record ed. 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 Normal left ventri cular chambe r size with normal left ventri cular systol ic functi on. Estima devante ejecti on fracti on is 65-70% . There is mild to modera te concen tric hypert rophy of the left ventri kaylin. There is Dopple r eviden ce for impair ed relaxa tion of the left ventri kaylin 2. No segmen americo wall motion abnorm alitie s 3. Mild left atrial enlarg ement, with normal right atrial size 4. Normal right ventri cular size and functi on 5. Normal mitral valve, with trivia l mitral valve prolap se. There is modera te mitral insuff icienc y 6. Normal aortic valve, with trivia l aortic insuff icienc y 7. No perica rdial effusi on 8. Normal aortic root 9. Normal tricus pid valve with tricus pid regurg itant jet veloci ty less than 2.0 m/s implyi ng normal right ventri cular systol ic pressu re Electr onical ly Signed by ALLI ABZZI MD on 2024 at 1206 Report ed and signed by: ALLI BAZZI MD PAGE 1 Signed Report (ALLEN NUED) [facility] Name: RANDALL GOMEZ [address] [employer] [facility] Phys: Jluis TEE, [place] [address] : 1944 Age: 79 Sex: F Acct: [id number] Loc: Jose PHONE #: [phone] Exam Date: 2024 Status : DEP CLI FAX #: [phone] Rad# [id number] Unit# [id number] Admit Date: 2024 EXAMS: CPT CODE: [id number] ECHO W/SPEC /COLOR FLOW [id number] CC: Rolando wu PA-C; Alli Bazzi MD Dictat ed Date/T pineda: 2024 (1206) Techno logist : JOSE RODRÍGUEZ W RICHARD Transc ribed Date/T pineda: 2024 (1206) Transc riptio nist: DR.LOH SHERLY burton Signat ure Date/T pineda: 2024 (1206) Printe d Date/T pineda: 2024 (1200) BATCH NO: N/A PAGE 2 Signed Report CC'ed Logic: Orderi ng Provid er: JLUIS CARSON Attend ing Provid er: JLUIS CARSON Referr ing Provid er: JLUIS CARSON Consul ting Provid er: CAMRENCITA park [address], [place], [address], 07/05/2024 12:49:15 Result Notes None recorded. Problems Name Problem SNOMED Code Status Onset Date Resolution Date Notes Provider Name and Address Organization Details Recorded Time Malignant hypertensi on 10218231 Active 2024 Alli Bazzi MD 1 [facility] e [facility], [place], [address] , [place] - [facility] [place] & [place] 5 10:19:56 Acute respirator y failure 76304695 Active Jodee rolon, [place] - [facility] [place] & [place] 5 09:16:[address] segment elevation myocardial infarction 267708959 Active Jodee rolon, [place] - [facility] [place] & [place] 5 09:16:38 Angina pectoris 540111542 Active 2022 Not Available [facility] 3 10:33:23 Electrocar diogram abnormal 155247934 Active 2022 Not Available [facility] 3 10:33:23 Essential hypertensi on 47591979 Active 2022 Not Available [facility] 3 10:33:23 Coronary arterioscl erosis 89926431 Active 2018 Kari rolon, [place] [facility] [place] 3 14:28:24 Mitral valve regurgitat ion 84213103 Active 2022 Not Available [facility] 3 10:33:23 Moderate recurrent major depression 50224584 Active Kari Knarr null, [place] [facility] [place] & [place] 3 14:28:23 Recurrent urinary tract infection 682697561 Active 2018 Kari Lorenzoarr null, [place] [facility] [place] & [place] 3 14:28:23 Fibromyalg ia 876793847 Active 2018 Kari Lorenzoarr null, [place] [facility] [place] 3 14:28:23 Generalize d anxiety disorder 83414277 Active Kari Lorenzoarr null[place] [facility] [place] & [place] 3 14:28:23 Motor tic disorder 110804027 Active Kari Lorenzoarr [place] [facility] [place] 3 14:28:23 Gastroesop hageal reflux disease 354469312 Active 2018 Kari Byrd null, [place] [facility] [place] 3 14:28:23 Urethral stenosis 703428235 Active 2018 Karidaya Byrd null[place] [facility] [place] 3 14:28:23 Chest pain 10235831 Active Kari Lorenzoarr null[place] [facility] [place] & [place] 3 14:28:23 Arthritis 1503872 Active 2018 Kari Knarr null[place] [facility] [place] 3 14:28:23 Hypertensi ve disorder 85723224 Active 2018 Kari Knarr null[place] [facility] [place] 3 14:28:23 Neuropathy 855250303 Active 2018 Kari Bjarr null[place] [facility] [place] & [place] 3 14:28:23 Atrophic vaginitis 74651559 Active 2018 Kari Bjarr null[place] [facility] [place] 3 14:28:24 Hyperlipid emia 06952660 Active 2018 Kari Bjarr null[place] [facility] [place] 3 14:28:24 History of cardiac catheteriz ation 2423536890648 0 Active Jodee Narvaez null[place] [facility] [place] 5 09:16:38 Osteoporos is 88786062 Active 2018 Kari Byrd null[place] [facility] [place] 3 14:28:24 Septic shock 74115110 Active Kari Byrd null[place] [facility] [place] 3 14:28:24 Leukopenia 63076266 Active 2022 Not Available [facility] 3 10:33:23 Iron deficiency anemia 15320747 Active 2022 Not Available [facility] 3 10:33:23 Takotsubo cardiomyop athy 413138497 Active 2022 Not Available [facility] 3 10:33:23 Heart failure with reduced ejection fraction 839941269 Active 2022 Not Available [facility] 3 10:33:23 Dysphagia 82721440 Active 2022 Brain Arenas MD [facility] [employer] [address] [place] [address], [address] , [place] - [facility] [place] & [place] 3 15:55:47 Bile-induc ed gastritis 39911670 Active 2022 Brain Arenas MD [facility] [employer] [place], [address] , [place] [facility] [place] & [place] 3 15:56:21 Gastroesop hageal reflux disease without esophagiti s 022723804 Active 2022 Brain Arenas MD [facility] [employer] [place], [address] , [place] [facility] [place] & [place] 3 16:15:27 Sensorineu ral hearing loss 92396035 Active 2023 ADENIKE NG, AUD [address] [facility], [place], [address] , [place] - [facility] [place] & [place] 4 12:13:52 Problem Notes None recorded. Procedures Surgical History Date Name Laterality Status Provider Name and Address Organization Details Recorded Time 2022 LEFT HEART CATHETERIZATION (SURG) completed Kari Byrd JOS - [facility] - [place] & [place] 3 14:32:00 2007 cardiac catheterization completed Alena ARGUELLO - [facility] - [place] & [place] 2 13:49:01 1996 hysterectomy completed Fani Bedoya JOS - [facility] & [place] 3 15:22:17 1988 Back Surgery completed Alena ARGUELLO - [facility] [place] & [place] 2 13:48:24 cholecystectomy completed Esme Dorman JOS - [facility] & [place] 3 11:46:03 extraction of cataract completed Archie Dorman JOS - [facility] & [place] 3 11:46:40 Appendectomy completed Alena ARGUELLO - [facility] - [place] & [place] 2 13:48:43 Stent completed Alena ARGUELLO - [facility] - [place] & [place] 2 13:49:21 Hernia repair w/mesh completed Aaron aaliyah ARGUELLO - [facility] & [place] 2 13:49:48 esophagogastroduodenoscopy completed Alena ARGUELLO - [facility] - [place] & [place] 2 13:49:55 Imaging Results Imaging Date Name Status LastModified by Organization Details LastModified Time 06/02/2023 fine needle aspiration, thyroid (PROC) completed [email or web address] Information not available 06/02/2023 11:30:05 06/02/2023 audiogram completed [email or web address] Information no t available 06/02/2023 12:15:51 06/17/2023 US, echocardiogram, transthoracic, complete, w/ color flow completed [employer] [address], [place], [address], 05/17/2024 12:46:42 03/20/2023 electrocardiogram completed [email or web address] Informa tion not available 05/17/2024 07:54:00 01/21/2024 electrocardiogram completed DOMINGO Mv [address], [place], [address], 01/21/2024 10:44:34 01/21/2024 electrocardiogram completed [email or web address] Informa tion not available 01/21/2024 10:58:33 06/24/2024 electrocardiogram completed DOMINGO Mv [address], [place], [address], 06/24/2024 10:06:21 06/24/2024 electrocardiogram completed [email or web address] Informa tion not available 06/24/2024 11:38:47 07/04/2024 - ECHO w/spec/color flow completed [place] [address] [facility] [place], [address], 07/05/2024 12:49:15 Procedure Notes None recorded. Medical Equipment None Reported. Allergies Allergen ID Allergen Name Allergen Category Reaction Reaction Severity Criticality Documentation Date Start Date Code Code System Note Provider Name and Address Organization Details Recorded Time 326270 orphenadr ine Not available Not available Not available Not available 07/22/20242022 7715 RxNorm Jodee us null, [place] - [facility] & [place] 5 09:16:24 391767 sulfameth oxazole medicatio n Not available Not available Not available 07/22/20242022 13268 RxNorm Jodee us null, [place] - [facility] & [place] 5 09:16:24 285868 trimethop rim medicatio n Not available Not available Not available 07/22/20242022 12327 RxNorm Jodee us null, [place] [facility] [place] & [place] 5 09:16:24 482619 povidone- iodine medicatio n rash severe Not available 07/22/20242019 8611 RxNorm Jodee Williamso n null, [place] [facility] [place] & [place] 5 09:16:24 104891 methamphe tamine medicatio n Not available Not available Not available 07/22/20242022 6816 RxNorm Jodee Lee n null, [place] [facility] [place] & [place] 5 09:16:24 454575 tolmetin medicatio n Not available Not available Not available 07/22/20242022 84503 RxNorm Jodee Lee n null, [place] [facility] [place] & [place] 5 09:16:24 145440 ceftriaxo ne medicatio n nausea severe Not available 07/22/20242022 2193 RxNorm Jodee Lee n null, [place] [facility] [place] 5 09:16:24 213055 deutetrab enazine medicatio n Not available Not available Not available 07/22/20242021 07057 05 RxNorm Jodee Lee n null, [place] [facility] [place] & [place] 5 09:16:24 04304 gabapenti n medicatio n Not available Not available Not available 03/01/20222019 95677 RxNorm Kari Byrd null, [place] [facility] [place] & [place] 3 14:27:58 70700 tolmetin sodium medicatio n Not available Not available Not available 03/01/2022 69963 RxNorm Elvira Dorman null, [place] [facility] [place] & [place] 2 11:08:38 20937 Betadine medicatio n Not available Not available Not available 03/01/2022201475 0 RxNorm Kari Byrd null, [place] [facility] [place] & [place] 3 14:27:58 26577 sulindac medicatio n Not available Not available Not available 03/01/20222019 85783 RxNorm Kari Byrd null, [place] [facility] [place] & [place] 3 14:27:58 44447 hydrochlo rothiazid e medicatio n Not available Not available Not available 03/01/20222022 5487 RxNorm Jodee Maximuso n null, [place] - [facility] - [place] & [place] 5 09:16:24 37306 methylpre dnisolone medicatio n Not available Not available Not available 03/01/20222022 6902 RxNorm Jodee Maximuso n null, [place] - [facility] - [place] & [place] 5 09:16:24 75984 Bactrim medicatio n Not available Not available Not available 03/01/2022 01386 9 RxNorm Elvira Dorman null, [place] - [facility] & [place] 2 11:09:51 20379 amoxicill in medicatio n Not available Not available Not available 03/01/20222022 723 RxNorm Jodeeyun Lee n null, [place] - [facility] & [place] 5 09:16:24 52248 nitrofura ntoin medicatio n Not available Not available Not available 03/01/20222022 7454 RxNorm Jodeeyun Stroudo n null, [place] - [facility] & [place] 5 09:16:24 59719 Rocephin medicatio n Not available Not available Not available 10/01/2022 9449 RxNorm Esme Dorman null, [place] - [facility] & [place] 3 11:45:14 36408 propranol ol medicatio n Not available Not available Not available 10/01/20222022 8787 RxNorm Jodee Lee n null, [place] - [facility] - [place] & [place] 5 09:16:24 17249 methenami ne medicatio n Not available Not available Not available 10/01/2022 6832 RxNorm Esme Dorman null, [place] - [facility] & [place] 3 11:45:36 88746 Austedo medicatio n Not available Not available Not available 10/01/2022 71078 11 RxNorm Esme Dorman [facility], [place] - [place] - [place] & [place] 3 11:45:45 Medications Name Sig Start Date Stop Date Status Note LastModified by Organization Details LastModified Time cyclobenzap rine 10 mg tablet 03/04 completed Not Available Not Available Not Available furosemide 40 mg tablet Take 1 tablet every day by oral route. 06/24 completed Not Available Not Available Not Available primidone 50 mg tablet take 1 tablet by oral route 3 times a day 03/04 completed Not Available Not Available Not Available oxcarbazepi ne 150 mg tablet 03/04 completed Not Available Not Available Not Available nystatin 100,000 unit/mL oral suspension TAKE FIVE (5) ML BY MOUTH THREE (3) TIMES DAILY 06/24 completed Not Available Not Available Not Available clonidine HCl 0.1 mg tablet TAKE ONE (1) TABLET BY MOUTH TWICE DAILY active Not Available Not Available No t Available acetaminoph en 325 mg tablet 650 mg by oral route. 07/11 completed Not Available Not Available Not Available carvedilol 6.25 mg tablet TAKE ONE (1) TABLET BY ORAL ROUTE TWO (2) TIMES PER DAY WITH FOOD 06/24 completed Not Available Not Available Not Available nitrofurant oin macrocrysta l 50 mg capsule 50 mg by oral route. 10/19 completed Not Available Not Available Not Available doxycycline hyclate 100 mg capsule TAKE ONE (1) CAPSULE BY MOUTH TWICE DAILY FOR ONE WEEK 06/24 completed Not Available Not Available Not Available carvedilol 12.5 mg tablet 1 tablet by mouth twice daily active Not Available Not Available No t Available tizanidine 2 mg tablet Take 1 tablet every 6 hours by oral route. 04/28 completed Not Available Not Available Not Available clindamycin HCl 300 mg capsule TAKE 1 CAPSULE BY MOUTH THREE (3) TIMES DAILY 01/20 completed Not Available Not Available Not Available trazodone 50 mg tablet Take 1 tablet every day by oral route. 09/03 completed Not Available Not Available Not Available cetirizine 10 mg tablet Take 1 tablet every day by oral route as needed. active Not Available Not Available No t Available biotin 5 mg capsule 06/12 completed Not Available Not Available Not Available tizanidine 4 mg tablet 4 mg by oral route. 09/21 completed Not Available Not Available Not Available benzonatate 200 mg capsule Take 1 capsule 3 times a day by oral route as needed for 7 days. 06/11 completed Not Available Not Available Not Available metoprolol succinate ER 50 mg tablet,exte nded release 24 hr take 1 tablet by mouth one time a day 06/24 completed Not Available Not Available Not Available valacyclovi r 1 gram tablet TAKE ONE (1) TABLET THREE (3) TIMES A DAY BY ORAL ROUTE FOR 7 DAYS. 03/01 completed Not Available Not Available Not Available ranitidine 300 mg tablet 03/04 completed Not Available Not Available Not Available Claritin 10 mg tablet Take 1 tablet twice a day by oral route as needed. 01/20 completed Not Available Not Available Not Available sucralfate 1 gram tablet TAKE ONE (1) TABLET TWICE A DAY BY ORAL ROUTE FOR 90 DAYS. active Not Available Not Available No t Available lisinopril 20 mg tablet 01/20 completed Not Available Not Available Not Available ondansetron HCl 4 mg tablet TAKE 1 TABLET EVERY DAY NEEDED 06/24 completed Not Available Not Available Not Available alendronate 70 mg tablet Take 1 tablet every week by oral route for 90 days. 09/03 completed Not Available Not Available Not Available prednisone 5 mg tablet TAKE FOUR (4) TABLETS BY MOUTH FOR FIVE (5) DAYS THEN TAKE THREE (3) TABLETS FOR FIVE (5) DAYS THEN TAKE 2 TABLETS FOR FIVE (5) DAYS THEN TAKE 1 TABLET FOR FIVE (5) DAYS THEN OFF 09/03 completed Not Available Not Available Not Available sulindac 150 mg tablet 03/04 completed Not Available Not Available Not Available leflunomide 10 mg tablet TAKE 1 TABLET BY MOUTH EVERY DAY 06/24 completed Not Available Not Available Not Available hydroxyzine HCl 50 mg tablet TAKE 1 TABLET BY MOUTH THREE (3) TIMES DAILY NEEDED active Not Available Not Available No t Available clopidogrel 75 mg tablet Take 1 tablet every day by oral route. 06/02 completed Not Available Not Available Not Available fexofenadin e 180 mg tablet 03/04 completed Not Available Not Available Not Available ciprofloxac in 250 mg tablet Take 1 tablet every 12 hours by oral route for 5 days. 09/03 completed Not Available Not Available Not Available amlodipine 5 mg tablet TAKE ONE (1) TABLET BY MOUTH TWICE DAILY active Not Available Not Available No t Available methotrexat e sodium 25 mg/mL injection solution 04/28 completed Not Available Not Available Not Available ciprofloxac in 500 mg tablet TAKE ONE (1) TABLET EVERY 12 HOURS BY ORAL ROUTE FOR 10 DAYS. 02/24 completed Not Available Not Available Not Available sulfamethox azole 800 mg-trimetho prim 160 mg tablet TAKE ONE (1) TABLET EVERY 12 HOURS BY ORAL ROUTE FOR 7 DAYS. 06/24 completed Not Available Not Available Not Available aspirin 81 mg tablet,faustino yed release TAKE 1 TABLET BY MOUTH EVERY DAY 02/24 completed Not Available Not Available Not Available leflunomide 20 mg tablet take 1 tablet by mouth daily active Not Available Not Available No t Available tramadol 50 mg tablet TAKE 1 TABLET BY MOUTH THREE (3) TIMES DAILY FOR PAIN active Not Available Not Available No t Available amitriptyli ne 50 mg tablet 50 mg by oral route. 09/30 completed Not Available Not Available Not Available acetaminoph en 500 mg tablet 500 mg by oral route. 05/05 completed Not Available Not Available Not Available spironolact one 25 mg tablet TAKE 1 TABLET BY MOUTH EVERY DAY 06/24 completed Not Available Not Available Not Available ketorolac 30 mg/mL (1 mL) injection solution Inject 1 mL by intramusc ular route for 1 day. 08/01 completed Not Available Not Available Not Available ondansetron 8 mg disintegrat ing tablet take 1 tablet as needed active Not Available Not Available No t Available orphenadrin e citrate 30 mg/mL injection solution Inject 2 mL every 12 hours by intramusc ular route. 07/26 completed Not Available Not Available Not Available baclofen 20 mg tablet Take 1 tablet every day by oral route for 90 days. active Not Available Not Available No t Available oxycodone-a cetaminophe n 5 mg-325 mg tablet TAKE ONE (1) TABLET TWICE A DAY BY ORAL ROUTE. active Not Available Not Available No t Available methenamine hippurate 1 gram tablet 10/19 completed Not Available Not Available Not Available alprazolam 0.25 mg tablet Take 1 tablet 3 times a day by oral route as needed. 09/03 completed Not Available Not Available Not Available primidone 250 mg tablet TAKE 1 TABLET BY MOUTH EACH MORNING AND ONE HALF (1/2) TABLET IN IN THE EVENING active Not Available Not Available No t Available methocarbam ol 750 mg tablet TAKE 1 TABLET BY MOUTH EVERY NIGHT AT BEDTIME 06/24 completed Not Available Not Available Not Available oxycodone-a cetaminophe n 10 mg-325 mg tablet TAKE ONE (1) TABLET FOUR (4) TIMES A DAY BY ORAL ROUTE. active Not Available Not Available No t Available tamsulosin 0.4 mg capsule TAKE 1 CAPSULE BY MOUTH DAILY 09/03 completed Not Available Not Available Not Available trazodone 100 mg tablet TAKE ONE (1) TABLET BY MOUTH ONCE DAILY AT BEDTIME active Not Available Not Available No t Available Kenalog 10 mg/mL suspension for injection Take 2 mg by injection route. 09/03 completed Not Available Not Available Not Available baclofen 10 mg tablet Take 1 tablet 3 times a day by oral route as needed. active Not Available Not Available No t Available dexamethaso ne 2 mg tablet TAKE ONE (1) TABLET EVERY DAY BY ORAL ROUTE FOR FIVE (5) DAYS. 06/24 completed Not Available Not Available Not Available cephalexin 500 mg capsule TAKE ONE (1) CAPSULE EVERY 8 HOURS BY ORAL ROUTE FOR 10 DAYS. 06/02 completed Not Available Not Available Not Available pantoprazol e 40 mg tablet,faustino yed release Take 1 tablet twice a day by oral route for 90 days. active Not Available Not Available No t Available nortriptyli ne 10 mg capsule 10/19 completed Not Available Not Available Not Available buspirone 10 mg tablet Take 1 tablet every day by oral route at noon for 60 days. 06/24 completed Not Available Not Available Not Available methylcellu lose (laxative) 500 mg tablet 500 mg by oral route. 06/11 completed Not Available Not Available Not Available lisinopril 10 mg tablet take 1 tablet (10 mg) by oral route once daily 03/04 completed Not Available Not Available Not Available nitroglycer in 0.4 mg sublingual tablet DISSOLVE 1 TABLET UNDER THE TONGUE EVERY 5 MINUTES UNTIL CHEST PAIN STOPS OR HEADACHE 09/30 completed Not Available Not Available Not Available sulfamethox azole 200 mg-trimetho prim 40 mg/5 mL oral suspension 03/04 completed Not Available Not Available Not Available docusate sodium 100 mg capsule 200 mg by oral route. 05/05 completed Not Available Not Available Not Available gabapentin 300 mg capsule 03/04 completed Not Available Not Available Not Available sertraline 25 mg tablet TAKE ONE-HALF TABLET BY MOUTH EVERY DAY X 7 DAYS, THEN TAKE ONE TABLET BY MOUTH EVERY DAY X 7 DAYS, THEN TAKE TWO TABLETS BY MOUTH EVERY DAY 06/24 completed Not Available Not Available Not Available buspirone 7.5 mg tablet TAKE 1 TABLET BY MOUTH TWICE DAILY 09/03 completed Not Available Not Available Not Available omeprazole 20 mg capsule,del ayed release 20 mg by oral route. 06/11 completed Not Available Not Available Not Available folic acid 1 mg tablet TAKE ONE (1) TABLET BY ORAL ROUTE EVERY DAY 04/28 completed Not Available Not Available Not Available montelukast 10 mg tablet 10 mg by oral route. 04/14 completed Not Available Not Available Not Available hydroxyzine HCl 25 mg tablet 02/24 completed Not Available Not Available Not Available lisinopril 5 mg tablet 40 mg by oral route. 06/16 completed Not Available Not Available Not Available furosemide 20 mg tablet Take 1 tablet every day by oral route as needed for 90 days. 02/24 completed Not Available Not Available Not Available gabapentin 100 mg capsule TAKE ONE (1) CAPSULE BY ORAL ROUTE THREE (3) TIMES EVERY DAY 02/24 completed Not Available Not Available Not Available metoprolol succinate ER 25 mg tablet,exte nded release 24 hr 04/28 completed Not Available Not Available Not Available ergocalcife rol (vitamin D2) 1,250 mcg (50,000 unit) capsule TAKE 1 CAPSULE (50,000 UNIT) BY ORAL ROUTE ONCE WEEKLY active Not Available Not Available No t Available dexamethaso ne sodium phosphate 4 mg/mL injection solution Inject 1 mL by intramusc ular route for 1 day. 08/01 completed Not Available Not Available Not Available Infed 50 mg/mL injection solution Infuse 1000 mg IV once 02/24 completed Not Available Not Available Not Available ketorolac 60 mg/2 mL intramuscul ar solution Inject 1 mL every day by intramusc ular route for 1 day. 10/24 completed Not Available Not Available Not Available celecoxib 100 mg capsule Take 1 capsule twice a day by oral route as needed for 30 days. 09/03 completed Not Available Not Available Not Available lisinopril 40 mg tablet TAKE ONE (1) TABLET BY MOUTH TWICE DAILY active Not Available Not Available No t Available ondansetron 4 mg disintegrat ing tablet 06/24 completed Not Available Not Available Not Available cefdinir 300 mg capsule 03/04 completed Not Available Not Available Not Available colestipol 1 gram tablet TAKE ONE (1) TABLET BY MOUTH EVERY DAY 06/24 completed Not Available Not Available Not Available doxycycline hyclate 100 mg tablet 10/19 completed Not Available Not Available Not Available diazepam 5 mg tablet TAKE ONE (1) TABLET THREE (3) TIMES A DAY BY ORAL ROUTE. 06/24 completed Not Available Not Available Not Available amoxicillin 875 mg-potassiu m clavulanate 125 mg tablet 03/04 completed Not Available Not Available Not Available amoxicillin 500 mg-potassiu m clavulanate 125 mg tablet TAKE ONE (1) TABLET TWICE A DAY BY ORAL ROUTE FOR 7 DAYS. 02/24 completed Not Available Not Available Not Available buspirone 15 mg tablet Take 1 tablet twice a day by oral route. active Not Available Not Available No t Available Benadryl 25 mg capsule prn 03/04 completed Not Available Not Available Not Available Tigan 300 mg capsule Take 1 capsule 3 times a day by oral route as needed for 7 days. 06/11 completed Not Available Not Available Not Available Arthritis Pain Relief (acetaminop hen) ER 650 mg tablet,exte nd release Take 2 tablets every 8 hours by oral route as needed. 01/20 completed Not Available Not Available Not Available Premarin 0.625 mg/gram vaginal cream INSERT 0.5G INTRAVAGI LYRIC NIGHTLY FOR THE FIRST MONTH OF THERAPY, AND THEN GO TO TWICE WEEKLY FOR MAINTENAN CE. active Not Available Not Available No t Available aripiprazol e 5 mg tablet TAKE 0.5 TABLETS EVERY DAY BY ORAL ROUTE DIRECTED FOR 30 DAYS. 09/03 completed Not Available Not Available Not Available nitrofurant oin monohydrate /macrocryst als 100 mg capsule 04/28 completed Not Available Not Available Not Available duloxetine 20 mg capsule,del ayed release TAKE ONE CAPSULE BY MOUTH TWICE DAILY X 7 DAYS THEN TAKE ONE CAP BY MOUTH EVERY DAY X 7 DAYS, THEN STOP. 06/24 completed Not Available Not Available Not Available duloxetine 30 mg capsule,del ayed release Take 1 capsule every day by oral route. 04/28 completed Not Available Not Available Not Available duloxetine 60 mg capsule,del ayed release Take 1 capsule twice a day by oral route. active Not Available Not Available No t Available BD Integra Syringe 3 mL 25 gauge x 5/8 04/28 completed Not Available Not Available Not Available tizanidine 4 mg capsule take 1 capsule by oral route 2 times a day 03/04 completed Not Available Not Available Not Available metoprolol ta-hydrochl orothiaz 09/03 completed Not Available Not Available Not Available Carafate take 1 tablet by oral route QID (1 GM) 10/19 completed Not Available Not Available Not Available lidocaine (PF) 10 mg/mL (1 %) injection solution Take 2 mg by injection route. 09/03 completed Not Available Not Available Not Available levocetiriz ine 5 mg tablet 5 mg by oral route. 06/11 completed Not Available Not Available Not Available nebivolol 5 mg tablet 5 mg by oral route. 06/11 completed Not Available Not Available Not Available diclofenac 1 % topical gel applicati on once at bedtime 04/10 completed Not Available Not Available Not Available Savella 100 mg tablet 04/14 completed Not Available Not Available Not Available Savella 12.5 mg (5)-25 mg(8)-50mg( 42) tablets in a dose pack 03/04 completed Not Available Not Available Not Available Stool Softener 100 mg tablet Take 2 tablets every day by oral route at bedtime. 01/20 completed Not Available Not Available Not Available ketorolac 30 mg/mL injection solution Inject 2 mL every day by intraveno us route for 1 day. 07/26 completed Not Available Not Available Not Available guanfacine ER 1 mg tablet,exte nded release 24 hr TAKE 1 TABLET BY MOUTH EVERY NIGHT AT BEDTIME 06/24 completed Not Available Not Available Not Available Zyrtec 10 mg capsule Take by oral route. 08/01 completed Not Available Not Available Not Available Prolia 60 mg/mL subcutaneou s syringe Inject 1 mL by subcutane ous route. 10/19 completed Not Available Not Available Not Available Fiber Supplement (inulin) 2 gram chewable tablet chew 8 tablets by oral route daily 03/04 completed Not Available Not Available Not Available Azo Bladder Control 1 daily PRN 01/20 completed Not Available Not Available Not Available duloxetine 40 mg capsule,del ayed release TAKE ONE (1) CAPSULE TWICE A DAY BY ORAL ROUTE FOR 7 DAYS. 01/20 completed Not Available Not Available Not Available Entresto 24 mg-26 mg tablet Take 1 tablet twice a day by oral route for 28 days. 03/31 completed Not Available Not Available Not Available Phospho-Tri n Neutral 250 mg tablet TAKE 1 TABLET BY MOUTH TWICE DAILY 07/26 completed Not Available Not Available Not Available AZO Complete Feminine Balance 5 billion cell capsule Take 1 capsule every day by oral route for 90 days. 03/31 completed Not Available Not Available Not Available tramadol 100 mg tablet Take 1 tablet every 4 hours by oral route. 09/03 completed Not Available Not Available Not Available Vitals Date Recorded Body height Body mass index (BMI) Body weight Oxygen saturation Oxygen saturation in Arterial blood by Pulse oximetry Heart rate Systolic blood pressure Diastolic blood pressure Provider Name and Address Organization Details Last Updated DateTime 4 154.94 cm 21.9 kg/m2 15746.7 1 g 97 % 97 % 76 /min 110 mm[Hg] 70 mm[Hg] Crystal Norman [place] - [facility] & [place] 4 11:27:52 Date Recorded Body height Provider Name an d Address Organization Details Last Updated DateTime 06/24/2023 154.94 cm Kami Retana [facility] & [place] 06/24/2023 15:08:10 Date Recorded Body height Body mass index (BMI) Body weight Oxygen saturation Oxygen saturation in Arterial blood by Pulse oximetry Heart rate Systolic blood pressure Diastolic blood pressure Provider Name and Address Organization Details Last Updated DateTime 4 154.94 cm 23.2 kg/m2 05875.8 6 g 95 % 95 % 74 /min 148 mm[Hg] 82 mm[Hg] Paulina Lombardo [facility] & [place] 4 10:42:29 Date Recorded Body height Body mass index (BMI) Body weight Oxygen saturation Oxygen saturation in Arterial blood by Pulse oximetry Heart rate Systolic blood pressure Diastolic blood pressure Provider Name and Address Organization Details Last Updated DateTime 5 154.94 cm 22.2 kg/m2 75736.7 4 g 98 % 98 % 67 /min 190 mm[Hg] 96 mm[Hg] Génesis Law [facility] & [place] 5 09:38:47 Date Recorded Body height Body mass index (BMI) Body weight Oxygen saturation Oxygen saturation in Arterial blood by Pulse oximetry Heart rate Systolic blood pressure Diastolic blood pressure Provider Name and Address Organization Details Last Updated DateTime 5 154.94 cm 22.2 kg/m2 11636.7 4 g 97 % 97 % 77 /min 126 mm[Hg] 78 mm[Hg] Jodee us [facility] & [place] 5 09:25:00 Social History Question Answer Notes LastModified by Organizat ion Details LastModified Time Tobacco Smoking Status Never Smoker Alena rolon [place] - [facility] & [place] 02/28/2022 13:47:33 Do You Have An Advance Directive? Yes [email or web address] Information not available 04/28/2023 What Is Your Level Of Alcohol Consumption? None [email or web address] Information not available 02/28/2022 What Is Your Level Of Caffeine Consumption? Occasional [email or web address] Information not available 04/28/2023 What Type Of Diet Are You Following? REGULAR [email or web address] Information not available 04/28/2023 What Was The Date Of Your Most Recent Tobacco Screening? 04/28/2023 [email or web address] Information not available 04/28/2023 Are You Passively Exposed To Smoke? No [email or web address] Information no t available 04/28/2023 Do You Use Any Illicit Or Recreational Drugs? No [email or web address] Information not available 04/28/2023 Sex: Female Functional Status Question Answer Note LastModified by Organizat ion Details LastModified Time What is your exercise level? Occasional [email or web address] Information not available 04/28/2023 Mental Status None recorded. Family History Relationship Description Onset Age of this Age Resolved Age Notes LastModified by Organization Details LastModified Time Father Malignant neoplastic disease [email or web address] Not available 08/2022 14:59:32 Brother Heart disease [email or web address] Not available 2022 11:48:07 Brother Malignant tumor of unknown origin [email or web address] Not available 08/2022 14:59:32 Brother Diabetes mellitus [email or web address] Not available 08/2022 14:59:32 Sister Diabetes mellitus [email or web address] Not available 08/2022 14:59:32 Sister Heart disease [email or web address] Not available 2022 11:48:34 Sister Dementia [email or web address] Not avail able 04/28/2023 14:59:32 Unspecified Relation History of hypertension [email or web address] Not available 04/28/2023 14:59:32 Medical History Condition Response Coronary Artery Disease Y Gout N Other Y None N Colon Cancer N Kidney Stones N Ear or Hearing Problems Y Hyperthyroidism N Kidney or Bladder Problems Y COPD N Hypothyroidism N Depression Y GI Problems Y Osteoporosis/Osteopenia Y Chest Pain Y Diverticulitis/Diverticulosis N TIA Y Colon Polyps Y Anxiety Disorder Y Diabetes N Bleeding Disorder N Arthritis Y Seizures/Epilepsy N Blood Clot Y Tuberculosis N Hyperlipidemia Y Cancer N Stroke N Asthma N Sleep Apnea N GERD/Reflux Y Hepatitis N Cirrhosis N Liver Disease N Heart Disease Y Rheumatoid Arthritis Y Hypertension Y Kidney Disease N Gynecological HistoryNo gynecological history recorded. Obstetrics History GPAL:G 0 P 0 0 0 0 Immunizations Vaccine Type Date Status Note Provider Nam e and Address Organization Details Recorded Time Influenza, high-dose, quadrivalent, PF 1 completed Not Available [facility] 02/16/2023 13:15:20 Influenza, high-dose, quadrivalent, PF 2 completed Not Available [facility] 02/16/2023 13:15:20 COVID-19, mRNA, LNP-S, PF, 30 mcg/0.3 mL dose 1 completed Not Available [facility] 02/16/2023 13:15:20 COVID-19, mRNA, LNP-S, PF, 30 mcg/0.3 mL dose 1 completed Not Available [facility] 02/16/2023 13:15:20 COVID-19, mRNA, LNP-S, PF, 30 mcg/0.3 mL dose 1 completed Not Available [facility] 02/16/2023 13:15:20 pneumococcal polysaccharide PPV23 2 completed Not Available [facility] 02/16/2023 13:15:20 influenza, unspecified formulation 5 completed Not Available [facility] 02/16/2023 13:15:20 Tdap 8 completed Not Available [facility] 02/16/2023 13:15:20 Pneumococcal conjugate PCV 13 1 completed Not Available [facility] 02/16/2023 13:15:20 zoster live 3 completed Not Available [facility] 02/16/2023 13:15:20 Past Encounters Encounter ID Performer Location Encounter Start Date Encounter Closed Date Diagnosis/Indication Diagnosis SNOMED-CT Code Diagnosis ICD10 Code Diagnosis Note [id number] JOE SHEETS [facility] [address] [place] [address] 03/01/2022 10:33:01 03/01/2022 12:12:32 Bilateral osteoarthritis of knees 1326980806 06876 M17.0 M25.512 Impingemen t syndrome of shoulder region 434307873 M75.42 [id number] JOE Winters [address] MULTANI [address] [place] [id number] 09/03/2022 13:16:20 09/03/2022 14:07:30 Essential hypertension 35490019 I10 Angina pectoris 67808083 0 I20.9 Electrocar diogram abnormal 823257679 R94.31 Coronary arteriosclerosis 44473393 I25.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 312016387 Z95.5 Mitral antonio ve regurgitation 61580349 I34.0 [id number] Alli Bazzi MD [address] MULTANI [address] [place] [id number] 09/16/2022 07:46:10 09/16/2022 07:46:31 Essential hypertension 06182718 I10 EKG INTERPRETA TION: EKG dated 09/03/22 revealed sinus rhythm with heart rate 62. RSR'. Septal infarct - age undetermin ed. Abnormal. [id number] JOE Winters [address] MULTANI [address] [place] [id number] 09/17/2022 13:54:36 09/17/2022 14:48:40 Essential hypertension 24812644 I10 Coronary arteriosclerosis 28119587 I25.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 754867629 Z95.5 Mitral antonio ve regurgitation 61804116 I34.0 [id number] GABRIELE FARFAN NP [facility] [address] [place] [address] [place] [address] 10/01/2022 11:09:57 10/01/2022 11:48:44 Leukopenia 39285370 D72.819 CBC on 09/03/2022 showed WBC at 4.0 which is a slight improvemen t from 3.0 on 09/01/2022 . Suspect this is secondary to her iron deficiency anemia and hope to see improvemen t with correction of the iron deficiency . Should it continue to be decreased, will perform further laboratory evaluation . Iron defic iency anemia 76325449 D50.9 Patient presents October 01, 2022 for evaluation of anemia. Patient noted to have leukopenia and anemia. Suspect this is secondary to her iron deficiency and hope to see improvemen t with correction of the iron deficiency . Recommend iron replacemen t. Given patient's history of gastric bypass surgery, will proceed with IV iron. Patient to return to clinic in 6 weeks for repeat laboratory evaluation . Should you have any further questions or concerns, please feel free to give me a call at . I personally spent 45 minutes in patient care on this date reviewing records, obtaining interim history, performing a physical exam, counseling the patient, writing scripts, and documentin g informatio n in the electronic health record. [id number] REGINO MCCARTNEY NP, S ANGIE [address] MULTANI [address] [place], [place] [phone] 02/24/2023 14:48:23 02/24/2023 16:17:48 Essential hypertension 28509109 I10 Coronary arteriosclerosis 27353499 I25.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 085857190 Z95.5 Mitral antonio ve regurgitation 09361043 I34.0 Takotsubo cardiomyopathy 573503635 I51.81 Heart fail ure with reduced ejection fraction 575482316 I50.9 [id number] REGINO MCCARTNEY NP, S ANGIE [address] MULTANI [address] [place] [phone] 03/31/2023 12:54:07 03/31/2023 13:49:52 Essential hypertension 16778938 I10 Takotsubo cardiomyopathy 494168731 I51.81 Coronary arteriosclerosis 85524585 I25.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 107117409 Z95.5 Mitral antonio ve regurgitation 70179704 I34.0 Heart fail ure with reduced ejection fraction 934530321 I50.9 [id number] Brain Arenas MD [facility] [address] [place] [address],[facility] [address] [place] [address] 04/28/2023 14:45:44 04/28/2023 16:10:42 Dysphagia 13187039 R13.10 Solid food dysphagia, the patient clearly would benefit from endoscopy, but will need cardiac clearance because of her reported myocardial injury recently. Bile-induc ed gastritis 76772697 K29.60 Restart colestipol because of patient's complaints of constipati on with this start on low-dose 1 tablet once a day. Gastroesop hageal reflux disease without esophagitis 177275493 K21.9 the patient has taken a proton pump inhibitor on twice a day basis, we have asked the patient please take this before breakfast and before her evening meal. Further recommenda tion will be dependent upon the patient's endoscopic results and the response of the patient to medication s taken appropriat jacob. [id number] Lillian Boothe MD [facility] [address] MULTANI [address] [place] [phone] 06/02/2023 10:50:55 06/02/2023 12:34:03 Bilateral tinnitus 4202626578 102 H93.13 Tinnitus management discussed today which includes white noise if patient is having difficulty sleeping. It was discussed that most cases of tinnitus are benign in nature and can be managed symptomati aida. Hearing protection was discussed to avoid tinnitus worsening. Sensorineu ral hearing loss of bilateral ears 208196593 H90.3 Patient has symmetric bilateral sensorineu ral hearing loss. there is no evidence of rollover and word recognitio n scores are good. should she desire amplificat ion now or in the future she is a good candidate. [id number] ANTWAN LOUISE [facility] [address] MULTANI [address] [place] [address] 06/02/2023 11:46:28 06/02/2023 12:00:27 Sensorineural hearing loss 16084855 H90.3 [id number] Brain Arenas MD [facility] erology [address] [place] [address],[facility] [address] [place] [address] 06/24/2023 14:24:34 06/24/2023 15:38:28 Dysphagia 95118579 R13.10 Recent EGD without obvious stricture, discuss manometry with patient, she is declined this evaluation , she actually reports that her symptoms have significan tly improved. Bile-induc ed gastritis 19557990 K29.60 Stopped colestipol , states that she can not tolerate even 1 capsule a day made her constipate d. Continue PPI therapy, and Carafate no change Gastroesop hageal reflux disease without esophagitis 497590338 K21.9 some persistent heartburn symptoms despite b.i.d. PPI therapy, discussed 24 hour pH probe the patient has declined. No change in therapy [id number] Alli Bazzi MD [address] MULTANI [address] [place] [address] 01/21/2024 10:21:19 01/21/2024 11:13:05 Essential hypertension 40480075 I10 Takotsubo cardiomyopathy 346063089 I51.81 Coronary arteriosclerosis 73964313 I25.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 193198889 Z95.5 Mitral antonio ve regurgitation 32279029 I34.0 Heart fail ure with reduced ejection fraction 558502408 I50.9 This has subsequent ly improved to a normal ejection fraction at 60-65% [id number] Alli Bazzi MD [address] MULTANI [address] [place] [address] 06/24/2024 09:12:44 06/24/2024 10:22:07 Essential hypertension 03128519 I10 Takotsubo cardiomyopathy 583467389 I51.81 Coronary arteriosclerosis 87276563 I25.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 115187308 Z95.5 Mitral antonio ve regurgitation 64392217 I34.0 Malignant hypertension 78318952 I10 [id number] Alli Bazzi MD [address] UMLTANI [address] [place] [address] 07/22/2024 08:52:06 07/22/2024 09:31:04 Essential hypertension 88924064 I10 Takotsubo cardiomyopathy 801873229 I51.81 Coronary arteriosclerosis 69728753 I25.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 768919088 Z95.5 Mitral antonio ve regurgitation 62829370 I34.0 Malignant hypertension 96910862 I10 Health Concerns Section Related Observation LastModified by Organization Detai ls LastModified Time None Recorded Concern Status LastModified by Organization Details LastModified Time None Recorded Advance Directives Directive Y: Payers Encounter Date Sequence Insurance Name Policy Number Policy Carrera Covered Member ID Carrera Member ID Guarantor Name 06/02/2023 1 [employer] (MEDICARE REPLACEMENT/A DVANTAGE - PPO) Randall Gomez [id number] Randall Gomez 06/24/2023 1 [employer] (MEDICARE REPLACEMENT/A DVANTAGE - PPO) Randall Gomez [id number] Randall Gomez 01/21/2024 1 [employer] (MEDICARE REPLACEMENT/A DVANTAGE - PPO) Randall Gomez [id number] Randall Gomez 06/24/2024 1 [place] Randall Gomez [id number] Randall Gomez 07/22/2024 1 [place] Randall Gomez [id number] Randall Gomez 07/22/2024 2 [employer] (MEDICARE SUPPLEMENT) Randall Gomez [id number] Randall Gomez Notes Date Note Type Note Provider Name and Address Organization Details Recorded Time 06/02/2023 text/html Patient is here for bilateral ear problems, states since april she has had ear pressure and thunder sounds when she swallows. She has never had an audiogram before. History of occupational noise exposure. Lillian Boothe MD [address], [place], [address], [facility] 06/06/2023 11:18:14 06/02/2023 text/html Ms. Gomez was s een today for an audiologic evaluation due to ongoing roaring tinnitus and gradual hearing loss bilaterally per Dr. Lillian Boothe MD. She denies any significant communication disruptions. Otoscopic inspection was unremarkable bilaterally. Audiometric testing revealed a mild, sloping to moderate, mid through high freq SNHL bilaterally with good word rec scores. Type A Tympanogram bilaterally 1-Discussed findings with Ms. Gomez and Dr. Boothe. 2-F/u with Dr. Boothe this date. 3-F/u hearing testing as directed, or at least annually. ANTWAN LOUISE [address] , [place], [address], [facility] 06/02/2023 12:15:56 01/21/2024 text/html patient had an episode of broken April time her ejection fraction was 20-25%. She did have mitral insufficiency. She denies any chest pain pressure or tightness. Denies any significant shortness of breath. She is improved Alli Bazzi MD [address] [place] [address],[address], [place], [address], [facility] [place] 01/21/2024 12:06:46 06/24/2024 text/html patient has been having lot of pain. She has a lot of body pain from fibromyalgia and arthritic pain. Her pain pump has gone out and she has been having 10/10 body aches and pains. With this is associated hypertension. No chest pain pressure or tightness. The blood pressure has been high. She has been getting diaphoresis. Was seen in the secondary to the hypertension. She has also been having some trouble with vision and macular degeneration Alli Bazzi MD [address] [place] [address],[address], [place], [address], [facility] [place] 06/24/2024 12:02:26 07/22/2024 text/html patient is here for follow-up on test results. Still with some occasional chest pain. Only with over exertion. 5/10 and sharp. No pressure tightness or heaviness Alli Bazzi MD [address] [place] [address],[address], [place], [address], [facility] [place] 07/23/2024 08:29:37 OBGyn Episode No OBEpisode recorded.
[2024-09-17 15:22] VITALS: BP 163/78; PULSE 72; RESP 18; O2SAT 97; BMI 22.6
--- NOTE | 2024-09-17 15:39 | EXP.PAIN.PRO ---
Procedure Date: 09/17/24 Time: 15:39 Anesthesiologist:: Taylor Ray APRN Complications:: None Pre-procedure Diagnosis:: Degenerative disc disease of lumbar spine with lumbar radiculopathy symptoms Post-procedure Diagnosis:: Same Indications for Procedure:: Patient is a pleasant 79-year-old female who presents today for 1 week postop of her intrathecal pump replacement. Today she rates her pain a 5 out of 10. She denies any new trauma or injury. She does state that overall she has been doing really well following the surgery and feels like this pump is worked much better than the previous one. Patient states that she has less pain overall than she has had in years. Patient does state that she feels like she could use some additional adjustment. Patient is currently managed with Dilaudid 0.5 mg/mL with a daily dose of 0.05 mcg/day. She denies any side effects. Her Jesse has been reviewed and is appropriate. Physical Exam: General: Alert and oriented x3, no acute distress, pleasant and cooperative Lungs: Respirations even and unlabored, symmetrical chest expansion Eyes: PERRL Musculoskeletal: Flexion and extension of lumbar [spine] somewhat guarded secondary to pain, [antalgic gait noted] Neurological: Speech clear, no gross sensory deficit Skin: Incision sites are clean, dry, well-approximated with minimal erythema noted sutures and marek intact Procedure Details:: Informed consent was obtained and the risk and benefits of the procedure were explained to the patient. Patient did have noninvasive monitoring was placed including noninvasive blood pressure cuff and pulse oximeter. Patient's pump was interrogated and was reprogrammed to Dilaudid 0.41971 mg/day. The patient tolerated the procedure well with no complications. Plan and Disposition:: Patient was counseled to continue her postop restrictions the full 6 weeks. Patient was also reviewed that her next 2-week follow-up we will plan on taking out the sutures and marek and adding skin glue with Steri-Strips. Patient tolerated the procedure well with no complications and was discharged neurologically intact. Patient will return to clinic on or before their next intrathecal refill date. We will see the patient back in the clinic at the next intrathecal refill. Patient has been instructed to contact the clinic with any concerns before the next appointment. Dr. Garcia has reviewed this note and agrees with this plan of care. This note was dictated using voice recognition software and make contain errors or omissions. -- It Is medically necessary for this patient to continue to have their intrathecal pump refilled at regular intervals. This patient had an intrathecal pain pump implanted after meeting criteria of chronic intractable pain for greater than 3 months and failing conservative treatments. Patient has committed and been compliant to the treatment plan and all planned follow up care. Since implantation of the intrathecal pain pump, the patient has had decreased pain and been more functional. Oral medications have been reduced including intake of oral opioids. Patient continues to do well with intrathecal therapy with decrease in pain symptoms and increase in functional status. Stopping intrathecal medications can lead to life threatening withdrawal, seizures, cardiac arrest, severe pain, and possible . Pumps that are not refilled at regular intervals can be damages and cause and need for replacement. We continually titrate dose and concentration to optimize pain relief and function. We are limited in concentration for certain drugs to safely deliver medications through the pump and stay within the recommendations from the Polyanalgesic Consensus Committee Guidelines. Depending on dose and concentration these pumps may need to be refilled sooner than 3 months as we titrate. A UDS is needed to verify patient's compliance with our office pain contract. This is ordered based off specific treatments related to chronic pain with the potential to abuse certain medications.
== END 2024-09-17 23:59 | disposition home or self-care (01) ==
PROVIDERS: PCP Physician Assistant; Visit Provider Nurse Practitioner Family
DX: M51.16 Intervertebral disc disorders with radiculopathy, lumbar region (principal)
CPT/HCPCS: 62368; 99212; 99213; G0463

== ENCOUNTER 2024-09-29 11:06 | Outpatient (POV) | payer MEDICARE, OTHER, SELFPAY ==
--- OUTSIDE RECORDS SUMMARY | 2024-09-29 11:09 | XMS_ITS | Data Portability ---
Author Organization [place] [facility] Address [address] [place] [address] Assessment Encounter Date Assessment Date Assessment LastModified [...] home refill. Will send this to the [facility] home refill nurse. She does have antalgic gait today. Motor strength of lower extremities is 5/5. There is no gross sensory deficit. Jesse and drug screen are all appropriate. Will see her back in 6 months. We will communicate with the [facility] home health nurse for adjustments and [...] of her nonfunctioning pain pump tomorrow in [place], she is requesting to be rescheduled due [...] 29, she states this was not helpful. [facility] #[id number] was reviewed and was appropriate. Plan: We [...] and regulations. Patient is located in the [facility] and the treating medical provider is located in the [facility]. The telephone call was conducted for approximately 11 mins. [email or web address] Not available 05/06/2024 11:34:12 07/08/2024 07/08/2024 This patient has a intrathecal bupivacaine pain pump that is currently been turned off. She was scheduled for replacement of her pain pump system at [facility] however had to cancel her surgery due to an upper respiratory infection. Previously when she was on morphine she had issues with nightmares. It did give her adequate pain relief. Bupivacaine did not give her adequate pain relief. She would like to go back to an opioid and to have her pump changed out. We will call [facility] to get her back on the [...] Percocet 5 mg-325 mg tablet [address], [address], 21:17:51 Valium 5 mg tablet [address], [address], 12:58:05 Percocet 10 mg-325 mg tablet [address], [address], 12:58:05 Patient TargetsNo targets recorded. Patient Instructions Encounter Date Encounter Id Patient Instructions Last Modified By Organization Details Last Modified Time 04/19/2024 [id number] back pain: care instructions abux Not available [...] Details Recorded Time Moderate recurrent major depression 23836586 Active DANIELLE GOINS null, [place] - [facility] 4 11:26:13 Recurrent urinary tract infection 517112942 Active 2018 DANIELLE GOINS null, [place] [facility] 4 11:26:13 Fibromyalgi a 283572588 Active 2018 DANIELLE GOINS null, [place] [facility] 4 11:26:13 Generalized anxiety disorder 24458173 Active DANIELLE GOINS [place], [place] [facility] 4 11:26:13 Motor tic disorder 737518295 Active DANIELLE GOINS null, [place] - [facility] 4 11:26:13 Gastroesoph ageal reflux disease 882905877 Active 2018 DANIELLE GOINS null, [place] [facility] 4 11:26:13 Urethral stenosis 770071944 Active 2018 DANIELLE GOINS [place], [place] [facility] 4 11:26:13 Chest pain 85798757 Active DANIELLE GOINS [place], [place] [facility] 4 11:26:13 Arthritis 2921906 Active 2018 DANIELLE GOINS null, [place] [facility] 4 11:26:13 Hypertensiv e disorder 44146742 Active 2018 DANIELLE GOINS [place], [place] [facility] 4 11:26:13 Neuropathy 277375231 Active 2018 DANIELLE GOINS [place], [place] [facility] 4 11:26:13 Atrophic vaginitis 13515475 Active 2018 DANIELLE GOINS null, [place] [facility] 4 11:26:13 Coronary arterioscle rosis 99028063 Active 2018 DANIELLE GOINS null, [place] [facility] 4 11:26:13 Hyperlipide minal 86441270 Active 2018 DANIELLE GOINS null, [place] [facility] 4 11:26:13 History of cardiac catheteriza tion 4283895771320 0 Active DANIELLE GOINS [place], [place] [facility] 4 11:26:13 Osteoporosi s 40384395 Active 2018 DANIELLELEONIDAS GOINS null, [place] - [facility] 4 11:26:13 Septic shock 11321171 Active DANIELLE GOINS null, [place] - [facility] 4 11:26:13 Lumbar radiculopat hy 567339245 Active 2023 Chris Garcia MD [address] [facility],[address], [address], [place] - [facility] 4 12:46:58 Lumbar spondylosis 108063309 Active 2023 Chris Garcia MD [address] [facility],[address], [address], [place] [facility] 4 12:46:59 Long-term drug therapy Active 2024 Chris Garcia MD [address],[place] [address] [place] [address], [address], [place] [facility] 5 21:20:11 Continuous opioid dependence 773607639 Active 2024 Chris Garcia MD [address] [facility] [address], [address], [place] [facility] 5 21:20:12 Radiculopat hy due to lumbar interverteb ral disc disorder 3557624334184 05 Active 2022 STEPHANIE LEONARDO null, [place] - [facility] 3 15:10:23 Problem Notes None recorded. Procedures Surgical History Date Name Laterality Status Provider Name and Address Organization Details Recorded Time 04/19/2024 Pump Refill completed Chris Garcia MD [address] [facility],[address], [address], [place] [facility] 04/19/2024 [...] Not available Not available Not available 04/19/20242019 23295 RxNorm DANIELLE GOINS null, [place] - [facility] 4 11:25:57 6104 sulindac medicatio n Not available Not available Not available 04/19/20242014 13929 RxNorm DANIELLE GOINS null, [place] [facility] [...] Not available Not available Not available 04/19/20242019 60204 RxNorm DANIELLE GOINS null, [place] - [facility] 4 11:25:57 6109 gabapenti n medicatio n Not available Not available Not available 04/19/20242014 29533 RxNorm DANIELLE GOINS null, [place] - [facility] 4 11:25:57 6110 propranol ol medicatio n Not available Not available Not available 04/19/20242021 8787 RxNorm DANIELLE GOINS null, [place] [facility] 4 11:25:57 6111 tolmetin medicatio n Not available Not available Not available 04/19/20242019 75586 RxNorm DANIELLE GOINS null, [place] [facility] [...] Not available Not available Not available 04/19/2024 29819 1 RxNorm DANIELLE GOINS null, [place] - [facility] 4 11:25:57 6115 tolmetin sodium medicatio n Not available Not available Not available 04/19/20242014 49895 RxNorm DANIELLE GOINS null, [place] [facility] 4 11:25:57 6116 Austedo medicatio n Not available Not available Not available 04/19/2024 57496 11 RxNorm DANIELLE GOINS null, [place] - [...] 4 152.4 cm 76 /min 23.8 kg/m2 88672.2 7 g 96 % 96 % 7 [...] Is Your Level Of Alcohol Consumption? None Information not available 04/19/2024 In The 14 Days Before Symptom Onset, Have You Had Close Contact With A Laboratory-confirm ed COVID-19 While That Case Was Ill? No [email or web address] Information n ot available 04/19/2024 In The 14 Days Before Symptom Onset, Have You Had Close Contact With A Person Who Is Under Investigation For COVID-19 While That Person Was Ill? No Information not available 04/19/2024 Have You Been To An Area Known To Be High Risk For COVID-19? No [email or web address] Information not available 04/19/2024 Do You Use Any Illicit Or Recreational Drugs? No [email or web address] Information not available 04/19/2024 Do You Or Have You Ever Used Any Other Forms Of Tobacco Or Nicotine? No Information not available 04/19/2024 Sex: Unknown Functional Status None recorded. Mental Status None recorded. Family History Nothing Reported. Medical History No medical history recorded. Gynecological HistoryNo gynecological history recorded. Obstetrics History GPAL:G 0 P 0 0 0 0 Past Encounters Encounter ID Performer Location Encounter Start Date Encounter Closed Date Diagnosis/Indication Diagnosis SNOMED-CT Code Diagnosis ICD10 Code Diagnosis Note [id number] Chris Garcia MD [address] BAXTER [address] [place] [address] 04/19/2024 10:24:45 04/19/2024 12:37:29 Radiculopathy due to lumbar intervertebral disc disorder 4414324964 11784 M51.16 Degenerati on of lumbar intervertebral disc 60548806 M51.369 Lumbar radiculopathy 128 151290 M54.16 Lumbar spondylosis 93491 0009 M47.896 [id number] Chris Garcia MD [address] BAXTER [address] [place] [id number] 05/06/2024 08:12:28 05/06/2024 13:55:22 Lumbar radiculopathy 300755804 M54.16 Arthritis 5310565 M19.90 Fibromyalgia 537793056 M 79.7 Neuropathy 991775498 G62 .9 Osteoporosis 98924711 M8 1.0 Radiculopa thy due to lumbar intervertebral disc disorder 4795014303 90337 M51.16 [id number] Chris Garcia MD [address] BAXTER [address] [place] [phone] 07/08/2024 10:11:19 07/08/2024 10:51:04 Moderate recurrent major depression 64739423 F33.1 Radiculopa thy due to lumbar intervertebral disc disorder 4428448963 17231 M51.16 Lumbar radiculopathy 128 218314 M54.16 Lumbar spondylosis 17875 0009 M47.896 Fibromyalgia 418435999 M 79.7 Degenerati on of lumbar intervertebral disc 94804261 M51.369 Long-term drug therapy 984277254 Z79.891 Continuous opioid dependence 131817248 F11.20 Health Concerns Section Related Observation LastModified by Organization Detai ls LastModified Time None Recorded Concern Status LastModified by Organization Details LastModified Time None Recorded Advance Directives Directive None Recorded Payers Encounter Date Sequence Insurance Name Policy Number Policy Carrera Covered Member ID Carrera Member ID Guarantor Name 04/19/2024 2 [employer] (MEDICARE REPLACEMENT/A DVANTAGE - PPO) Padmini Cueva Fearis [id number] Padmini Fearis 05/06/2024 2 [employer] (MEDICARE REPLACEMENT/A DVANTAGE - PPO) Padmini Cueva Fearis [id number] Padmini Fearis 07/08/2024 2 [employer] (MEDICARE REPLACEMENT/A DVANTAGE - PPO) Padmini Cueva Fearis [id number] Padmini Fearis 07/08/2024 1 [place] Padmini Cueva Fearis [id number] Padmini Fearis OBGyn Episode No OBEpisode recorded.
--- OUTSIDE RECORDS SUMMARY | 2024-09-29 11:10 | XMS_ITS | Data Portability ---
Author Organization [place] - [facility] Address [address] [place] [address] Care Team Providers Care Community Artist Name Role Phone ROLANDO LEDESMA Primary Care Provider BART SOLIS Lead Business Systems Analyst Assessment Encounter Date Assessment Date Assessment LastModified [...] AND COMPLETE. This note was dictated using EMcube software. If something is unclear, or does not make sense, please do not hesitate to contact our office at [phone] for clarification. diamond Not available 01/21/2024 12:06:25 [...] THIS DOCUMENTATION This note was dictated using EMcube software. If something is unclear, or does not make sense, please do not hesitate to contact our office at [phone] for clarification. [email or web address] Not available 06/24/2024 12:01:55 [...] heart. At that time she also had rbobvtov-ee-zslzzl mitral insufficiency. The repeat echocardiogram shows ejection [...] THIS DOCUMENTATION This note was dictated using EMcube software. If something is unclear, or does not make sense, please do not hesitate to contact our office at [phone] for clarification. diamond Not available 07/23/2024 08:29:10 Plan of Treatment Reminders Order Date Submit Date Provider Last Modified By Organization Details Last Modified Time Details Appointments None recorded. Lab None recorded. Referral None recorded. Procedures None recorded. Surgeries None recorded. Imaging electrocard iogram 2024 025 diamond Al [facility], [address], [place], [address], 5 10:21:15 US, echocardiog alejandra, transthorac ic, complete, w/ color flow 2024 025 [email or web address] [facility] [address] , [place], [address], 5 07:40:26 electrocard iogram 2023 024 diamond Al [facility], [address], [place], [address], 4 12:06:41 Medication Orders amlodipine 5 mg tablet 2024 025 [facility], [address] [place] [address], [address], 5 10:21:17 Patient TargetsNo targets recorded. Patient [...] audio gram No observ ation record ed. [email or web address] Not Available 2023 12:15:51 12/04/19 24 06/17/2023 US, echoc ardio gram, trans thora cic, compl ete, w/ color flow No observ ation record ed. [facility], [place], [address], 05/17/2024 12:46:42 12/04/19 24 03/20/2023 elect mark norwood am No observ ation record ed. [email or web address] Not Available 2023 07:54:00 01/21/20 24 elect rocar diogr am No observ ation record ed. DOMINGO Al [address], [place], [address], 01/21/2024 10:44:34 01/21/20 24 01/21/2024 elect rocar diogr am No observ ation record ed. [email or web address] Not Available 2023 10:58:33 06/24/19 elect rocar diogr am No observ ation record ed. DOMINGO Al [address], [place], [address], 06/24/2024 10:06:21 06/24/19 25 06/24/2024 elect rocar diogr am No observ ation record ed. [email or web address] Not Available 2024 11:38:47 07/04/19 25 07/04/2024 - ECHO w/spe c/col or flow [facility] Name: RANDALL GOMEZ [address] Phys: Jluis TEE, [place] [address] : 1944 Age: 79 Sex: F Acct: [id number] Loc: RASHIDA PHONE #: Exam Date: 2024 Status : DEP CLI FAX #: [phone] Rad# [id number] Unit# [id number] Admit Date: 2024 EXAMS: CPT CODE: [id number] ECHO W/SPEC /COLOR FLOW [id number] Reason for study: Mitral insuff icienc y Left ventri cular diasto le: 5.5 Left ventri cular systol e: 4.0 Septal wall thickn ess: 1.1 Director Of Teaching And Learning ior wall thickn ess: 1.3 Right ventri [...] re Electr onical ly Signed by ALLI BAZZI MD on 2024 at 1206 Report ed and signed by: ALLI BAZZI MD PAGE 1 Signed Report (ALLEN NUED) [facility] Name: RANDALL GOMEZ [address] [facility] Phys: Jluis TEE, [place] [address] : 1944 Age: 79 Sex: F Acct: [id number] Loc: Jose PHONE #: [phone] Exam Date: 2024 Status : DEP CLI FAX #: Rad# [id number] Unit# [id number] Admit Date: 2024 EXAMS: CPT CODE: [id number] ECHO W/SPEC /COLOR FLOW [id number] CC: Rolando wu PA-C; Alli Bazzi MD Dictat ed Date/T pineda: 2024 (1206) Techno logist : JOSE RODRÍGUEZ W RICHARD Transc ribed Date/T pineda: 2024 (1206) Transc riptio nist: DR.LOH SHERLY burton Signat ure Date/T pineda: 2024 (1206) Printe d Date/T pineda: 2024 (1202) BATCH NO: N/A PAGE 2 Signed Report CC'ed Logic: Orderi ng Provid er: JLUIS CARSON Attend ing Provid er: JLUIS CARSON Referr ing Provid er: JLUIS CARSON Consul ting Provid er: CARMENCITA park [address], [place], [address], 07/05/2024 12:49:15 Result Notes None recorded. Problems Name Problem SNOMED Code Status Onset Date Resolution Date Notes Provider Name and Address Organization Details Recorded Time Malignant hypertensi on 22101898 Active 2024 Alli Bazzi MD 1 [facility] e [facility], [place], [address] , [place] - [facility] - [place] & [place] 5 10:19:56 Acute respirator y failure 51675978 Active Jodee rolon, [place] - [facility] - [place] & [place] 5 09:16:[address] segment elevation myocardial infarction 632355976 Active Jodee rolon, [place] [facility] [place] & [place] 5 09:16:38 Angina pectoris 079107756 Active 2022 Not Available [facility] 3 10:33:23 Electrocar diogram abnormal 596551363 Active 2022 Not Available [facility] 3 10:33:23 Essential hypertensi on 59215709 Active 2022 Not Available [facility] 3 10:33:23 Coronary arterioscl erosis 13500327 Active 2018 Kari rolon, [place] - [facility] & [place] 3 14:28:24 Mitral valve regurgitat ion 06349311 Active 2022 Not Available [facility] 3 10:33:23 Moderate recurrent major depression 82092693 Active Kari Knarr null, [place] - [facility] [place] & [place] 3 14:28:23 Recurrent urinary tract infection 007857969 Active 2018 Kari Lorenzoarr null[place] [facility] [place] & [place] 3 14:28:23 Fibromyalg ia 199592660 Active 2018 Kari Lorenzoarr null[place] [place] & [place] 3 14:28:23 Generalize d anxiety disorder 03717167 Active Kari Lorenzoarr [place] [place] & [place] 3 14:28:23 Motor tic disorder 306504655 Active Kari Lorenzoarr [place] [place] & [place] 3 14:28:23 Gastroesop hageal reflux disease 009370387 Active 2018 Kari Byrd null[place] [facility] [place] & [place] 3 14:28:23 Urethral stenosis 498235828 Active 2018 Karidaya Byrd [place] [place] & [place] 3 14:28:23 Chest pain 37190939 Active Kari Lorenzoarr [place] [place] & [place] 3 14:28:23 Arthritis 3169143 Active 2018 Kari Knarr [place] [place] & [place] 3 14:28:23 Hypertensi ve disorder 94970049 Active 2018 Kari Knarr [place] [place] & [place] 3 14:28:23 Neuropathy 451224054 Active 2018 Kari Bjarr [place] [place] & [place] 3 14:28:23 Atrophic vaginitis 06328473 Active 2018 Kari Bjarr [place] [place] & [place] 3 14:28:24 Hyperlipid emia 84330013 Active 2018 Kari Bjarr [place] [place] & [place] 3 14:28:24 History of cardiac catheteriz ation 4337889520755 0 Active Jodee Narvaez null[place] [place] & [place] 5 09:16:38 Osteoporos is 24117048 Active 2018 Kari Byrd [place] [place] & [place] 3 14:28:24 Septic shock 13070244 Active Kari Byrd [place] [place] & [place] 3 14:28:24 Leukopenia 51560323 Active 2022 Not Available [facility] 3 10:33:23 Iron deficiency anemia 92283009 Active 2022 Not Available [facility] 3 10:33:23 Takotsubo cardiomyop athy 719955146 Active 2022 Not Available [facility] 3 10:33:23 Heart failure with reduced ejection fraction 252863302 Active 2022 Not Available [facility] 3 10:33:23 Dysphagia 16021077 Active 2022 Brain Arenas MD [facility] [place] [place] [address], [address] , [place] - [facility] - [place] & [place] 3 15:55:47 Bile-induc ed gastritis 48843029 Active 2022 Brain Arenas MD [facility] [place], [address] , [place] [facility] [place] & [place] 3 15:56:21 Gastroesop hageal reflux disease without esophagiti s 045400612 Active 2022 Brain Arenas MD [facility] [place], [place], [address] , [place] [facility] [place] & [place] 3 16:15:27 Sensorineu ral hearing loss 34725852 Active 2023 ADENIKE NG, AUD [address] [facility], [place], [address] , [place] - [facility] - [place] & [place] 4 12:13:52 Problem Notes None recorded. Procedures Surgical History Date Name Laterality Status Provider Name and Address Organization Details Recorded Time 2022 LEFT HEART CATHETERIZATION (SURG) completed Kari Byrd [place] - [facility] - [place] & [place] 3 14:32:00 2007 cardiac catheterization completed Alena ARGUELLO - [facility] - [place] & [place] 2 13:49:01 1996 hysterectomy completed Fani Bedoya [place] - [facility] & [place] 3 15:22:17 1988 Back Surgery completed Alena ARGUELLO - [facility] - [place] & [place] 2 13:48:24 cholecystectomy completed Esme Dorman J[place] - [facility] & [place] 3 11:46:03 extraction of cataract completed Archie Dorman JOS - [facility] & [place] 3 11:46:40 Appendectomy completed Alena ARGUELLO - [facility] - [place] & [place] 2 13:48:43 Stent completed Alena ARGUELLO - [facility] - [place] & [place] 2 13:49:21 Hernia repair w/mesh completed Aaron aaliyah ARGUELLO - [facility] & [place] 2 13:49:48 esophagogastroduodenoscopy completed Alena ARGUELLO - [facility] - [place] & [place] 2 13:49:55 Imaging Results Imaging Date Name Status LastModified by Organization Details LastModified Time 06/02/2023 fine needle aspiration, thyroid (PROC) completed [email or web address] Information not available 06/02/2023 11:30:05 06/02/2023 audiogram completed Information no t available 06/02/2023 12:15:51 06/17/2023 US, echocardiogram, transthoracic, complete, w/ color flow completed [employer] [address] [employer], [place], [address], 05/17/2024 12:46:42 03/20/2023 electrocardiogram completed [email or web address] Informa tion not available 05/17/2024 07:54:00 01/21/2024 electrocardiogram completed DOMINGO Mv [address], [place], [address], 01/21/2024 10:44:34 01/21/2024 electrocardiogram completed Informa tion not available 01/21/2024 10:58:33 06/24/2024 electrocardiogram completed DOMINGO Mv [address], [place], [address], 06/24/2024 10:06:21 06/24/2024 electrocardiogram completed [email or web address] Informa tion not available 06/24/2024 11:38:47 07/04/2024 - ECHO w/spec/color flow completed [place] [address], [address], 07/05/2024 12:49:15 Procedure Notes None recorded. Medical Equipment None Reported. Allergies Allergen ID Allergen Name Allergen Category Reaction Reaction Severity Criticality Documentation Date Start Date Code Code System Note Provider Name and Address Organization Details Recorded Time 753648 orphenadr ine Not available Not available Not available Not available 07/22/20242022 7715 RxNorm Jodee us null, [place] - [facility] & [place] 5 09:16:24 535162 sulfameth oxazole medicatio n Not available Not available Not available 07/22/20242022 08159 RxNorm Jodee us null, [place] - [facility] & [place] 5 09:16:24 441670 trimethop rim medicatio n Not available Not available Not available 07/22/20242022 21330 RxNorm Jodee us null, [place] [facility] [place] & [place] 5 09:16:24 363116 povidone- iodine medicatio n rash severe Not available 07/22/20242019 8611 RxNorm Jodee Williamso n null, [place] [facility] [place] & [place] 5 09:16:24 238933 methamphe tamine medicatio n Not available Not available Not available 07/22/20242022 6816 RxNorm Jodee Lee n null[place] [facility] [place] & [place] 5 09:16:24 652391 tolmetin medicatio n Not available Not available Not available 07/22/20242022 70293 RxNorm Jodee Lee n null, [place] [facility] [place] & [place] 5 09:16:24 683858 ceftriaxo ne medicatio n nausea severe Not available 07/22/20242022 2193 RxNorm Jodee Lee n [place], [place] [facility] [place] & [place] 5 09:16:24 688836 deutetrab enazine medicatio n Not available Not available Not available 07/22/20242021 04569 05 RxNorm Jodee Lee n [place] [facility] [place] & [place] 5 09:16:24 19230 gabapenti n medicatio n Not available Not available Not available 03/01/20222019 46902 RxNorm Kari Byrd null, [place] [facility] [place] & [place] 3 14:27:58 48050 tolmetin sodium medicatio n Not available Not available Not available 03/01/2022 64277 RxNorm Elvira Dorman [place] [facility] [place] & [place] 2 11:08:38 92536 Betadine medicatio n Not available Not available Not available 03/01/2022201475 0 RxNorm Kari Byrd null, [place] [facility] [place] & [place] 3 14:27:58 41243 sulindac medicatio n Not available Not available Not available 03/01/20222019 65316 RxNorm Kari Byrd [place] [facility] [place] & [place] 3 14:27:58 19183 hydrochlo rothiazid e medicatio n Not available Not available Not available 03/01/20222022 5487 RxNorm Jodee Maximuso n null, [place] - [facility] - [place] & [place] 5 09:16:24 29547 methylpre dnisolone medicatio n Not available Not available Not available 03/01/20222022 6902 RxNorm Jodee Maximuso n null, [place] - [facility] - [place] & [place] 5 09:16:24 71988 Bactrim medicatio n Not available Not available Not available 03/01/2022 57325 9 RxNorm Elvira Dorman null, [place] - [facility] & [place] 2 11:09:51 79634 amoxicill in medicatio n Not available Not available Not available 03/01/20222022 723 RxNorm Jodeeyun Lee n null, [place] - [facility] & [place] 5 09:16:24 40291 nitrofura ntoin medicatio n Not available Not available Not available 03/01/20222022 7454 RxNorm Jodeeyun Stroudo n null, [place] - [facility] & [place] 5 09:16:24 93664 Rocephin medicatio n Not available Not available Not available 10/01/2022 9449 RxNorm Esme Dorman null, [place] - [facility] & [place] 3 11:45:14 29330 propranol ol medicatio n Not available Not available Not available 10/01/20222022 8787 RxNorm Jodee Lee n null, [place] - [facility] - [place] & [place] 5 09:16:24 22920 methenami ne medicatio n Not available Not available Not available 10/01/2022 6832 RxNorm Esme Dorman null, [place] - [facility] & [place] 3 11:45:36 34439 Austedo medicatio n Not available Not available Not available 10/01/2022 84357 11 RxNorm Esme Dorman [facility], [place] - [place] - [place] & [place] 3 11:45:45 Medications Name Sig Start Date [...] Updated DateTime 4 154.94 cm 21.9 kg/m2 37569.7 1 g 97 % 97 % 76 /min 110 mm[Hg] 70 mm[Hg] Crystal [place] - [facility] & [place] 4 11:27:52 Date Recorded Body height Provider Name an d Address Organization Details Last Updated DateTime 06/24/2023 154.94 cm Kami Retana [facility] & [place] 06/24/2023 15:08:10 Date Recorded Body height Body mass index (BMI) Body weight Oxygen saturation Oxygen saturation in Arterial blood by Pulse oximetry Heart rate Systolic blood pressure Diastolic blood pressure Provider Name and Address Organization Details Last Updated DateTime 4 154.94 cm 23.2 kg/m2 58030.8 6 g 95 % 95 % 74 /min 148 mm[Hg] 82 mm[Hg] Paulina Lombardo [facility] & [place] 4 10:42:29 Date Recorded Body height Body mass index (BMI) Body weight Oxygen saturation Oxygen saturation in Arterial blood by Pulse oximetry Heart rate Systolic blood pressure Diastolic blood pressure Provider Name and Address Organization Details Last Updated DateTime 5 154.94 cm 22.2 kg/m2 53766.7 4 g 98 % 98 % 67 /min 190 mm[Hg] 96 mm[Hg] Génesis Law [facility] & [place] 5 09:38:47 Date Recorded Body height Body mass index (BMI) Body weight Oxygen saturation Oxygen saturation in Arterial blood by Pulse oximetry Heart rate Systolic blood pressure Diastolic blood pressure Provider Name and Address Organization Details Last Updated DateTime 5 154.94 cm 22.2 kg/m2 49287.7 4 g 97 % 97 % 77 /min 126 mm[Hg] 78 mm[Hg] Jodee us [facility] & [place] 5 09:25:00 Social History Question Answer Notes LastModified by Organizat ion Details LastModified Time Tobacco Smoking Status Never Smoker Alena rolon [place] - [facility] & [place] 02/28/2022 13:47:33 Do You Have An Advance Directive? Yes [email or web address] Information not available 04/28/2023 What Is Your Level Of Alcohol Consumption? None [email or web address] Information not available 02/28/2022 What Is Your Level Of Caffeine Consumption? Occasional [email or web address] Information not available 04/28/2023 What Type Of Diet Are You Following? REGULAR [email or web address] Information not available 04/28/2023 What Was The Date Of Your Most Recent Tobacco Screening? 04/28/2023 [email or web address] Information not available 04/28/2023 Are You Passively Exposed To Smoke? No [email or web address] Information no t available 04/28/2023 Do You Use Any Illicit Or Recreational Drugs? No [email or web address] Information not available 04/28/2023 Sex: Female Functional Status Question Answer Note LastModified by Organizat ion Details LastModified Time What is your exercise level? Occasional [email or web address] Information not available 04/28/2023 Mental Status None recorded. Family History Relationship Description Onset Age of this Age Resolved Age Notes LastModified by Organization Details LastModified Time Father Malignant neoplastic disease [email or web address] Not available 08/2022 14:59:32 Brother Heart disease [email or web address] Not available 2022 11:48:07 Brother Malignant tumor of unknown origin [email or web address] Not available 08/2022 14:59:32 Brother Diabetes mellitus Not available 08/2022 14:59:32 Sister Diabetes mellitus [email or web address] Not available 08/2022 14:59:32 Sister Heart disease [email or web address] Not available 2022 11:48:34 Sister Dementia [email or web address] Not avail able 04/28/2023 14:59:32 Unspecified Relation History of hypertension [email or web address] Not available 04/28/2023 14:59:32 Medical History Condition Response Coronary Artery Disease Y Other Y None N Gout N Colon Cancer N Kidney Stones N Hyperthyroidism N Ear or Hearing Problems Y Kidney or Bladder Problems Y COPD N GI Problems Y Depression Y Hypothyroidism N Osteoporosis/Osteopenia Y Chest Pain Y Diverticulitis/Diverticulosis N TIA Y Colon Polyps Y Anxiety Disorder Y Diabetes N Bleeding Disorder N Arthritis Y Seizures/Epilepsy N Blood Clot Y Tuberculosis N Hyperlipidemia Y Cancer N Stroke N Asthma N Sleep Apnea N GERD/Reflux Y Hepatitis N Liver Disease N Cirrhosis N Heart Disease Y Rheumatoid Arthritis Y Hypertension Y Kidney Disease N Gynecological HistoryNo gynecological history recorded. Obstetrics History GPAL:G 0 P 0 0 0 0 Immunizations Vaccine Type Date Status Note Provider Nam e and Address Organization Details Recorded Time Influenza, high-dose, quadrivalent, PF 1 completed Not Available [facility] 02/16/2023 13:15:20 Influenza, high-dose, quadrivalent, PF 2 completed Not Available [facility] 02/16/2023 13:15:20 COVID-19, mRNA, LNP-S, PF, 30 mcg/0.3 mL dose 1 completed Not Available [facility] 02/16/2023 13:15:20 COVID-19, mRNA, LNP-S, PF, 30 mcg/0.3 mL dose 1 completed Not Available [facility] 02/16/2023 13:15:20 COVID-19, mRNA, LNP-S, PF, 30 mcg/0.3 mL dose 1 completed Not Available [facility] 02/16/2023 13:15:20 pneumococcal polysaccharide PPV23 2 completed Not Available [facility] 02/16/2023 13:15:20 influenza, unspecified formulation 5 completed Not Available [facility] 02/16/2023 13:15:20 Tdap 8 completed Not Available [facility] 02/16/2023 13:15:20 Pneumococcal conjugate PCV 13 1 completed Not Available [facility] 02/16/2023 13:15:20 zoster live 3 completed Not Available [facility] 02/16/2023 13:15:20 Past Encounters Encounter ID Performer Location Encounter Start Date Encounter Closed Date Diagnosis/Indication Diagnosis SNOMED-CT Code Diagnosis ICD10 Code Diagnosis Note [id number] Arnold Boyd MD Trista [address] [address] 03/01/2022 10:33:01 03/01/2022 12:12:32 Bilateral osteoarthritis of knees 2530557042 56375 M17.0 M25.512 Impingemen t syndrome of shoulder region 121729561 M75.42 [id number] Alli Bazzi MD MV [address] [place] [address] 09/03/2022 13:16:20 09/03/2022 14:07:30 Essential hypertension 47785587 I10 Angina pectoris 79869080 0 I20.9 Electrocar diogram abnormal 373131815 R94.31 Coronary arteriosclerosis 27933677 I25.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 490394034 Z95.5 Mitral antonio ve regurgitation 12977773 I34.0 [id number] Alli Bazzi MD [address] [place] [address] 09/16/2022 07:46:10 09/16/2022 07:46:31 Essential hypertension 28941464 I10 EKG INTERPRETA TION: EKG dated 09/03/22 revealed sinus rhythm with heart rate 62. RSR'. Septal infarct - age undetermin ed. Abnormal. [id number] Alli Bazzi MD [address] [place] [address] 09/17/2022 13:54:36 09/17/2022 14:48:40 Essential hypertension 54769928 I10 Coronary arteriosclerosis 02420644 I25.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 141738216 Z95.5 Mitral antonio ve regurgitation 61229579 I34.0 [id number] GABRIELE FARFAN NP [facility] [address] [place] [address] [place] [address] 10/01/2022 11:09:57 10/01/2022 11:48:44 Leukopenia 47246356 D72.819 CBC on 09/03/2022 showed WBC at 4.0 which is a slight improvemen t from 3.0 on 09/01/2022 . Suspect this is secondary to her iron deficiency anemia and hope to see improvemen t with correction of the iron deficiency . Should it continue to be decreased, will perform further laboratory evaluation . Iron defic iency anemia 85103949 D50.9 Patient presents October 01, 2022 for [...] informatio n in the electronic health record. [id number] REGINO MCCARTNEY NP, S ANGIE [address] [place], [place] [address] 02/24/2023 14:48:23 02/24/2023 16:17:48 Essential hypertension 64686450 I10 Coronary arteriosclerosis 53731782 I25.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 076492391 Z95.5 Mitral antonio ve regurgitation 64404798 I34.0 Takotsubo cardiomyopathy 821400877 I51.81 Heart fail ure with reduced ejection fraction 492975154 I50.9 [id number] REGINO MCCARTNEY NP, S ANGIE [address] [place] [address] 03/31/2023 12:54:07 03/31/2023 13:49:52 Essential hypertension 85610088 I10 Takotsubo cardiomyopathy 549967432 I51.81 Coronary arteriosclerosis 88400639 I25.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 380668873 Z95.5 Mitral antonio ve regurgitation 83381449 I34.0 Heart fail ure with reduced ejection fraction 723314775 I50.9 [id number] Brain Arenas MD [facility] [address] [place] [address],[facility] [address] [place] [address] 04/28/2023 14:45:44 04/28/2023 16:10:42 Dysphagia 86078010 R13.10 Solid food dysphagia, the patient clearly would benefit from endoscopy, but will need cardiac clearance because of her reported myocardial injury recently. Bile-induc ed gastritis 17491856 K29.60 Restart colestipol because of patient's complaints of constipati on with this start on low-dose 1 tablet once a day. Gastroesop hageal reflux disease without esophagitis 913603784 K21.9 the patient has taken a proton pump inhibitor on twice a day basis, we have asked the patient please take this before breakfast and before her evening meal. Further recommenda tion will be dependent upon the patient's endoscopic results and the response of the patient to medication s taken appropriat jacob. [id number] Lillian Boothe MD [facility] [address] [place] [address] 06/02/2023 10:50:55 06/02/2023 12:34:03 Bilateral tinnitus 6422333546 102 H93.13 Tinnitus management discussed today which includes white noise if patient is having difficulty sleeping. It was discussed that most cases of tinnitus are benign in nature and can be managed symptomati aida. Hearing protection was discussed to avoid tinnitus worsening. Sensorineu ral hearing loss of bilateral ears [id number] H90.3 Patient has symmetric bilateral sensorineu ral hearing loss. there is no evidence of rollover and word recognitio n scores are good. should she desire amplificat ion now or in the future she is a good candidate. [id number] ANTWAN LOUISE [facility] [address] MULTANI [address] [place] [phone] 06/02/2023 11:46:28 06/02/2023 12:00:27 Sensorineural hearing loss 04198320 H90.3 [id number] Brain Arenas MD [facility] erology [address] [place] [address],[facility] [address] [place] [address] 06/24/2023 14:24:34 06/24/2023 15:38:28 Dysphagia [id number] R13.10 Recent EGD without obvious stricture, discuss manometry with patient, she is declined this evaluation , she actually reports that her symptoms have significan tly improved. Bile-induc ed gastritis [id number] K29.60 Stopped colestipol , states that she can not tolerate even 1 capsule a day made her constipate d. Continue PPI therapy, and Carafate no change Gastroesop hageal reflux disease without esophagitis [id number] K21.9 some persistent heartburn symptoms despite b.i.d. PPI therapy, discussed 24 hour pH probe the patient has declined. No change in therapy [id number] Alli Bazzi MD [address] MULTANI [address] [place] [phone] 01/21/2024 10:21:19 01/21/2024 11:13:05 Essential hypertension 97206453 I10 Takotsubo cardiomyopathy 758569121 I51.81 Coronary arteriosclerosis 91800207 I25.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 803447621 Z95.5 Mitral antonio ve regurgitation 61473400 I34.0 Heart fail ure with reduced ejection fraction 997114291 I50.9 This has subsequent ly improved to a normal ejection fraction at 60-65% [id number] Alli Bazzi MD [address]ULTANI [address] [place] [address] 06/24/2024 09:12:44 06/24/2024 10:22:07 Essential hypertension 25728114 I10 Takotsubo cardiomyopathy 150356922 I51.81 Coronary arteriosclerosis 42570781 I25.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 690594359 Z95.5 Mitral antonio ve regurgitation 37237565 I34.0 Malignant hypertension 02010207 I10 [id number] Alli Bazzi MD [address]ULT[address] [place] [address] 07/22/2024 08:52:06 07/22/2024 09:31:04 Essential hypertension 00993606 I10 Takotsubo cardiomyopathy 693828646 I51.81 Coronary arteriosclerosis 24044815 I25.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 497503153 Z95.5 Mitral antonio ve regurgitation 39981800 I34.0 Malignant hypertension 68203111 I10 Health Concerns Section Related Observation LastModified by Organization Detai ls LastModified Time None Recorded Concern Status LastModified by Organization Details LastModified Time None Recorded Advance Directives Directive Y: Payers Insurance Date Sequence Insurance Name Policy Number Policy Carrera Covered Member ID Carrera Member ID Guarantor Name 07/19/2024 1 [place] Randall Gomez [id number] Randall Gomez 07/19/2024 2 [employer] (MEDICARE SUPPLEMENT) Randall Gomez [id number] Randall Gomez 06/24/2024 1 [employer] (MEDICARE REPLACEMENT/A DVANTAGE - PPO) Randall Gomez [id number] Randall Gomez 06/24/2024 2 [employer] (MEDICARE REPLACEMENT/A DVANTAGE - PPO) Randall Gomez [id number] Randall Gomez 07/05/2024 2 [employer] (MEDICARE SUPPLEMENT) Randall Gomez [id number] Randall Diazis 06/24/2024 2 [employer] (MEDICARE SUPPLEMENT) Randall Gomez [id number] Randall Gomez 06/24/2024 1 [place] Randall Gomez [id number] Randall Gomez Notes Date Note Type Note Provider Name and Address Organization Details Recorded Time 06/02/2023 text/html Patient is here for bilateral ear problems, states since april she has had ear pressure and thunder sounds when she swallows. She has never had an audiogram before. History of occupational noise exposure. Lillian Boothe MD [address] [facility], [place], [address], [facility] & [place] 06/06/2023 11:18:14 06/02/2023 text/html Ms. Gomez was [...] or at least annually. ANTWAN LOUISE [address] [facility], [place], [address], [facility] & [place] 06/02/2023 12:15:56 01/21/2024 text/html patient had an episode of broken April time her ejection fraction was 20-25%. She did have mitral insufficiency. She denies any chest pain pressure or tightness. Denies any significant shortness of breath. She is improved Alli Bazzi MD [address] [place] [address],[address], [place], [address], [facility] & [place] 01/21/2024 12:06:46 06/24/2024 text/html patient has been [...] vision and macular degeneration Alli Bazzi MD [address] [place] [address] Drive,[address], [place], [address], [facility] 06/24/2024 12:02:26 07/22/2024 text/html patient is here for follow-up on test results. Still with some occasional chest pain. Only with over exertion. 5/10 and sharp. No pressure tightness or heaviness Alli Bazzi MD [address] [place] [address] Drive,[address], [place], [address], [facility] 07/23/2024 08:29:37 OBGyn Episode No OBEpisode recorded.
--- OUTSIDE RECORDS SUMMARY | 2024-09-29 11:10 | XMS_ITS | Data Portability ---
Author Organization [facility] MARG[facility] [place] [facility] Address [address] [place] [address] Care Team Providers Care Window Repairer Name Role Phone LILIAN NAZARIO Primary Care Provider Assessment Encounter Date Assessment Date Assessment LastModified by Organization Details LastModified Time 09/29/2017 09/29/2017 Mrs. 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 Her EMG and nerve conduction studies are consistent with a left L5 radiculopathy. We discussed the option of a L4-5 minimally invasive laminectomy for decompression of her descending L5 nerve roots. She is concerned about her current pain and weakness and wishes to proceed. Of note, the nerve studies showed no evidence of peripheral neuropathy. I am therefore hopeful that her leg issues are mainly lumbar in origin. We discussed the option of an L4-5 minimally invasive laminectomy at length. She understands that no hardware would be implanted. This would likely be done on an outpatient basis, but she may need to stay overnight for pain control, and adverse reaction to anesthesia or CSF leakage. We discussed risks and benefits of the operation at length. She wishes to proceed. She will speak with Mayela, our surgery coordinator, and find a date for surgery. We can continue to talk about her cervical issues in the future. Not available 09/29/2017 10:41:10 11/10/2017 11/10/2017 Mrs. Gomez is a 72-year-old female status post minimally invasive laminectomy at L4-5. I am pleased to hear her improvement I will let her continue to work with Dr. Shaw with regards to her neck pain. She denies any significant radicular symptoms to warrant an updated MRI at this time. She is comfortable with this plan. She will call us going forward if she would like to be reevaluated for her cervical issues. Not available 11/10/2017 16:58:27 Plan of Treatment Reminders Order Date Submit Date Provider Last Modified By Organization Details Last Modified Time Details Appointments None recorded. Lab None recorded. Referral None recorded. Procedures None recorded. Surgeries None recorded. Imaging None recorded. Medication Orders buspirone 10 mg tablet 2017 018 [email or web address] [facility] [id number], [address] [place] [address] , [place], [address], 13:54:22 Patient TargetsNo targets recorded. Patient Instructions Encounter Date Encounter Id Patient Instructions Last Modified By Organization Details Last Modified Time 09/29/2017 [id number] She returns in follow-up today. She recently tried propranolol for her tremors but it caused stomach problems. She says she has chronic trouble with stomach problems and it limits medications which she can take. She is on primidone 250 mg twice a day which is helped with the tremors, no side effects. She does complain of weakness in both legs, left more than right. Her EMG did show a mild chronic left L5 radiculopathy. Her blood tests showed no specific treatable causes of neuropathy. I recommended she stay on the primidone. I will see her back in 4 months. Not available 09/29/2017 09:16:41 12/18/2017 [id number] She returns in followup today. Her chief complaint is twitches and jerks especially in her head. This tends to be related to stress, sleep deprivation, etc. and certain medications such as Cymbalta and tramadol to make it worse. They are worse in patients with familial tremor. I recommended a trial of BuSpar and I e-mailed a prescription to her pharmacy. I will see her back in 6 or 8 weeks. She denies any recent symptoms of neuropathy apart from poor balance. Radiofrequency lesions at the pain clinic are helping with her cervicogenic headaches. Not available 12/28/2017 15:40:05 Reason for Referral None Reported. Results Created Date Observation Date Name Description Value Unit Range Abnormal Flag Note LastModifiedBy Organization Detail LastModifiedTime 08/08/19 18 08/07/2017 CBC w/ auto diff white blood cells 4.1 K/uL 3.8-10 .8 normal Not Available [facility] [address] [place] [address], [address], 08/07/2017 11:59:53 08/08/19 18 08/07/2017 CBC w/ auto diff red blood cells 4.08 M/uL 3.80-5 .20 normal Not Available [facility] [address] [place] [address], [address], 08/07/2017 11:59:53 08/08/19 18 08/07/2017 CBC w/ auto diff hemoglobin 12.4 g/dL 12.0-1 6.0 normal Not Available [facility] [address] [place] [address], [address], 08/07/2017 11:59:53 08/08/19 18 08/07/2017 CBC w/ auto diff hematocrit 37.5 % 35.0-4 7.0 normal Not Available [facility] [address] [place] [address], [address], 08/07/2017 11:59:53 08/08/19 18 08/07/2017 CBC w/ auto diff MCV 92 fL 80-100 normal Not Available [facility] [address] [place] [address], [address], 08/07/2017 11:59:53 08/08/19 18 08/07/2017 CBC w/ auto diff MCH 30 pg 26-35 normal Not Available [facility] [address] [place] [address], [address], 08/07/2017 11:59:53 08/08/19 18 08/07/2017 CBC w/ auto diff MCHC 33 g/dL 32-36 normal Not Available [facility] [address] [place] [address], [address], 08/07/2017 11:59:53 08/08/19 18 08/07/2017 CBC w/ auto diff RDW 14.5 % 11.0-1 5.0 normal Not Available [facility] [address] [place] [address], [address], 08/07/2017 11:59:53 08/08/19 18 08/07/2017 CBC w/ auto diff MPV 9.8 fL 6.2-10 .5 normal Not Available [facility] [address] [place] [address], [address], 08/07/2017 11:59:53 08/08/19 18 08/07/2017 CBC w/ auto diff platelet count 175 K/uL 130-40 0 normal Not Available [facility] [address] [place] [address], [address], 08/07/2017 11:59:53 08/08/19 18 08/07/2017 CBC w/ auto diff neutrophil,a bsolute 2.1 K/uL 1.6-8. 4 normal Not Available [facility] [address] [place] [address], [address], 08/07/2017 11:59:53 08/08/19 18 08/07/2017 CBC w/ auto diff lymphocyte,a bsolute 1.5 K/uL 0.4-5. 1 normal Not Available [facility] [address] [place] [address], [address], 08/07/2017 11:59:53 08/08/19 18 08/07/2017 CBC w/ auto diff monocyte,abs olute 0.3 K/uL 0.0-1. 2 normal Not Available [facility] [address] [place] [address], [address], 08/07/2017 11:59:53 08/08/19 18 08/07/2017 CBC w/ auto diff eosinophil,a bsolute 0.2 K/uL 0.0-0. 8 normal Not Available [facility] [address] [place] [address], [address], 08/07/2017 11:59:53 08/08/19 18 08/07/2017 CBC w/ auto diff basophil,abs olute 0.0 K/uL 0.0-0. 3 normal Not Available [facility] [address] [place] [address], [address], 08/07/2017 11:59:53 08/08/19 18 08/07/2017 CBC w/ auto diff % neutrophils 49.9 % 42.0-7 8.0 normal Not Available [facility] [address] [place] [address], [address], 08/07/2017 11:59:53 08/08/19 18 08/07/2017 CBC w/ auto diff % lymphocytes 36.5 % 11.0-4 7.0 normal Not Available [facility] [address] [place] [address], [address], 08/07/2017 11:59:53 08/08/19 18 08/07/2017 CBC w/ auto diff % monocytes 8.4 % 0.0-11 .0 normal Not Available [facility] [address] [place] [address], [address], 08/07/2017 11:59:53 08/08/19 18 08/07/2017 CBC w/ auto diff % eosinophils 4.0 % 0.0-7. 0 normal Not Available [facility] [address] [place] [address], [address], 08/07/2017 11:59:53 08/08/19 18 08/07/2017 CBC w/ auto diff % basophils 1.2 % 0.0-3. 0 normal Not Available [facility] [address] [place] [address], [address], 08/07/2017 11:59:53 08/08/19 18 08/07/2017 CBC w/ auto diff nucleated red cells 0.1 % 0.0-0. 9 normal Not Available [facility] [address] [place] [address], [address], 08/07/2017 11:59:53 08/08/19 18 08/07/2017 CBC w/ auto diff nucleated RBCs, absolute 0.00 K/uL not estab. normal Not Available [facility] [address] [place], [address], 08/07/2017 11:59:53 08/08/19 18 08/07/2017 glyco hemog lobin , total , blood glyco HGB A1C 4.9 % 0.0-5. 6 normal Not Available [facility] [address] [place], [address], 08/07/2017 12:49:30 08/08/19 18 08/07/2017 glyco hemog lobin , total , blood estimated avg. glucose 94 mg/dL _(richard c) normal New guide lines by the Ameri can Diabe ciera Assoc iatio n state that a hemog lobin A1c level of 5.7-6 .4% indic ates an incre ased risk of diabe ciera. A resul t of 6.5% or highe r is diagn ostic of diabe ciera. Not Available [facility] [address] [place], [address], 08/07/2017 12:49:30 08/08/19 18 08/07/2017 TSH, serum or plasm a TSH 1.510 uIU/m L 0.290- 5.500 normal Not Available [facility] [address] [place], [address], 08/07/2017 13:51:56 08/08/19 18 08/07/2017 immun oelec troph oresi s, serum IgG 534 mg/dL 700-16 00 low Not Available [facility] [address] [place], [address], 08/09/2017 14:30:58 08/08/19 18 08/07/2017 immun oelec troph oresi s, serum IgA 121 mg/dL 70-400 normal Not Available [facility] [address] [place], [address], 08/09/2017 14:30:58 08/08/19 18 08/07/2017 immun oelec troph oresi s, serum IgM 26 mg/dL 40-230 low Not Available [facility] [address] [place] [address], [address], 08/09/2017 14:30:58 08/08/19 18 08/08/2017 immun oelec troph oresi s, serum protein, total 6.2 g/dL 6.1-8. 1 normal TEST PERFO RMED AT: [facility] [place] [address] [place] [address] CATHI Mario MD Not Available [facility] [address] [place] [address], [address], 08/09/2017 14:30:58 08/08/19 18 08/09/2017 immun oelec troph oresi s, serum albumin 4.0 g/dL 3.8-4. 8 normal Not Available [facility] [address] [place] [address], [address], 08/09/2017 14:30:58 08/08/19 18 08/09/2017 immun oelec troph oresi s, serum knnor-4-ibmw ulin 0.3 g/dL 0.2-0. 3 normal Not Available [facility] [address] [place] [address], [address], 08/09/2017 14:30:58 08/08/19 18 08/09/2017 immun oelec troph oresi s, serum nbfnc-8-nopr ulin 0.7 g/dL 0.5-0. 9 normal Not Available [facility] [address] [place] [address], [address], 08/09/2017 14:30:58 08/08/19 18 08/09/2017 immun oelec troph oresi s, serum beta 1 globulin 0.4 g/dL 0.4-0. 6 normal Not Available [facility] [address] [place] [address], [address], 08/09/2017 14:30:58 08/08/19 18 08/09/2017 immun oelec troph oresi s, serum beta 2 globulin 0.3 g/dL 0.2-0. 5 normal Not Available [facility] [address] [place] [address], [address], 08/09/2017 14:30:58 08/08/19 18 08/09/2017 immun oelec troph oresi s, serum gamma globulin 0.6 g/dL 0.8-1. 7 low Not Available [facility] [address] [place] [address], [address], 08/09/2017 14:30:58 08/08/19 18 08/09/2017 immun oelec troph oresi s, serum interpretati on normal SEE BELOW The gamma globu curly appea rs decre ased. No monoc lonal immun oglob ulin detec devante. TEST PERFO RMED AT: [facility] [place] [address] [place] [address] CATHI Mario MD SEE BELOW No monoc lonal immun oglob ulin detec devante. TEST PERFO RMED AT: [facility] [address] [place], [place] [phone] CATHI Mario MD Not Available [facility] [address] [place] [address], [address], 08/09/2017 14:30:58 08/08/19 18 08/07/2017 CMP, serum or plasm a glucose 77 mg/dL 74-100 normal Not Available [facility] [address] [place] [address], [address], 08/07/2017 13:54:37 08/08/19 18 08/07/2017 CMP, serum or plasm a blood urea nitrogen 11 mg/dL 6-20 normal Not Available [facility] [address] [place] [address], [address], 08/07/2017 13:54:37 08/08/19 18 08/07/2017 CMP, serum or plasm a creatinine 0.74 mg/dL 0.50-0 .95 normal Not Available [facility] [address] [place] [address], [address], 08/07/2017 13:54:37 08/08/19 18 08/07/2017 CMP, serum or plasm a BUN/creatini ne ratio 15 (calc ) 10-20 normal Not Available [facility] [address] [place] [address], [address], 08/07/2017 13:54:37 08/08/19 18 08/07/2017 CMP, serum or plasm a sodium 143 mmol/ L 136-14 5 normal Not Available [facility] [address] [place] [address], [address], 08/07/2017 13:54:37 08/08/19 18 08/07/2017 CMP, serum or plasm a potassium 3.9 mmol/ L 3.4-5. 0 normal Not Available [facility] [address] [place] [address], [address], 08/07/2017 13:54:37 08/08/19 18 08/07/2017 CMP, serum or plasm a chloride 104 mmol/ L 98-107 normal Not Available [facility] [address] [place] [address], [address], 08/07/2017 13:54:37 08/08/19 18 08/07/2017 CMP, serum or plasm a carbon dioxide 24 mmol/ L 20-32 normal Not Available [facility] [address] [place] [address], [address], 08/07/2017 13:54:37 08/08/19 18 08/07/2017 CMP, serum or plasm a anion gap 15 (calc ) 7-25 normal Not Available [facility] [address] [place] [address], [address], 08/07/2017 13:54:37 08/08/19 18 08/07/2017 CMP, serum or plasm a calcium 8.9 mg/dL 8.6-10 .2 normal Not Available [facility] [address] [place] [address], [address], 08/07/2017 13:54:37 08/08/19 18 08/07/2017 CMP, serum or plasm a total protein 6.1 g/dL 6.4-8. 3 low Not Available [facility] [address] [place] [address], [address], 08/07/2017 13:54:37 08/08/19 18 08/07/2017 CMP, serum or plasm a albumin 4.1 g/dL 3.5-5. 2 normal Not Available [facility] [address] [place] [address], [address], 08/07/2017 13:54:37 08/08/19 18 08/07/2017 CMP, serum or plasm a globulin 2.0 g/dL_ (calc ) 1.5-4. 5 normal Not Available [facility] [address] [place] [address], [address], 08/07/2017 13:54:37 08/08/19 18 08/07/2017 CMP, serum or plasm a albumin/glob ulin ratio 2.1 (calc ) 1.1-2. 5 normal Not Available [facility] [address] [place] [address], [address], 08/07/2017 13:54:37 08/08/19 18 08/07/2017 CMP, serum or plasm a bilirubin, total <0.2 mg/dL 0.1-1. 2 normal Not Available [facility] [address] [place] [address], [address], 08/07/2017 13:54:37 08/08/19 18 08/07/2017 CMP, serum or plasm a alkaline phosphatase 78 U/L 35-105 normal Not Available [facility] [address] [place] [address], [address], 08/07/2017 13:54:37 08/08/19 18 08/07/2017 CMP, serum or plasm a AST 16 U/L 0-32 normal Not Available [facility] [address] [place], [address], 08/07/2017 13:54:37 08/08/19 18 08/07/2017 CMP, serum or plasm a ALT 12 U/L 0-33 normal Not Available [facility] [address] [place], [address], 08/07/2017 13:54:37 08/08/19 18 08/07/2017 CMP, serum or plasm a GFR 94 >= 60 normal Not Available [facility] [address] [place] [address], [address], 08/07/2017 13:54:37 08/08/19 18 08/07/2017 CMP, serum or plasm a GFR non- 81 >= 60 normal NOT E Calcu latio n for GFR is based on the Natio nal Kidne y Found ation CKD-E PI equat ion and allow s for repor ting GFR value s great er than 60 mL/mi n/1.7 3 m2. This calcu latio n has not been valid ated for patie nts less than 18 yrs., pregn ant women and Hispa nics. Chron ic kidne y disea se is defin ed as kidne y damag e or GFR less than 60 mL/mi n/1.7 3 m2 for 3 month s or longe r. . Not Available [facility] [address] [place], [address], 08/07/2017 13:54:37 08/08/19 18 08/07/2017 CK (crea michaela kinas e) isoen zymes , serum creatine kinase 40 U/L 0-169 normal Not Available [facility] [address] [place], [address], 08/08/2017 22:20:09 08/08/19 18 08/08/2017 CK (crea michaela kinas e) isoen zymes , serum CK-mm 100 % 95 - 100 normal TEST PERFO RMED AT: [facility] [place] [address] [place] [address] CATHI Mario MD Not Available [facility] [address] [place] [address], [address], 08/08/2017 22:20:09 08/08/19 18 08/08/2017 CK (crea michaela kinas e) isoen zymes , serum CK-mb 0 % <5 normal Not Available [facility] [address] [place] [address], [address], 08/08/2017 22:20:09 08/08/19 18 08/08/2017 CK (crea michaela kinas e) isoen zymes , serum CK-bb 0 % none detect ed normal Not Available [facility] [address] [place] [address], [address], 08/08/2017 22:20:09 08/08/19 18 08/07/2017 vitam in B12, serum vitamin B12 380 pg/mL 232-12 45 normal Not Available [facility] [address] [place] [address], [address], 08/07/2017 14:02:18 08/08/19 18 08/07/2017 folat e, serum folic acid 3.7 NG/mL 4.8-24 .2 low Not Available [facility] [address] [place] [address], [address], 08/07/2017 14:03:58 08/08/19 18 08/09/2017 sjogr en antib royce panel , serum ss-A Ab <1.0 NEG ai <1.0 neg normal Not Available [facility] [address] [place] [address], [address], 08/09/2017 10:09:06 08/08/19 18 08/09/2017 sjogr en antib royce panel , serum ss-B Ab <1.0 NEG ai <1.0 neg normal TEST [facility]MED AT: [facility] [address] [place] [address] CATHI Mario MD Not Available [facility] [address] [place] [address], [address], 08/09/2017 10:09:06 08/08/19 18 08/09/2017 lyme disea se igg+i gm, serum , refle x weste rn blot lyme Ab screen <0.90 index normal Index Inter preta tion ----- ----- ----- ---- < 0.90 Negat blaed 0.90- 1.09 Equiv ocal > 1.09 Posit blade As recom mickey d by the Food and Drug Admin istra tion (FDA) , all sampl es with posit blade or equiv ocal resul ts in a Borre ana burgd orfer i antib royce scree n will be teste d using a blot metho d. Posit blade or equiv ocal scree juan test resul ts shoul d not be inter prete d as truly posit blade until verif ied as such using a suppl ement al assay (e.g. , B. burgd orfer i blot) . The scree juan test and/o r blot for B. burgd orfer i antib odies may be false ly negat blade in early stage s of Lyme disea se, inclu ding the perio d when eryth rowena migra ns is appar ent. TEST PERFO RMED AT: [facility] [address] [place] [address] CATHI Mario MD Not Available [facility] [address] [place] [address], [address], 08/09/2017 12:41:04 08/08/19 18 08/11/2017 methy lmalo chapincito, QN, serum or plasm a methylmaloni c acid,bld 107 nmol/ L 87-318 normal TEST PERFO RMED AT: [facility] [place] [address] [place] [address] CATHI Mario MD Not Available [facility] [address] [place], [address], 08/11/2017 10:35:43 08/20/19 18 nerve condu ction study /EMG, perip heral neuro stacie (PROC ) No observ ation record ed. [email or web address] Tab Castrejon MD [address] [place], [address], 08/20/2017 08:51:46 09/30/19 18 07/30/2017 XR, lumbo sacra l spine , 2 or 3 view No observ ation record ed. BARCODE Not Available 2017 10:28:39 09/30/19 18 08/08/2017 MRI, thora cic spine , w/o contr ast No observ ation record ed. [facility]CODE Not Available 2017 10:30:45 09/30/19 18 08/08/2017 MRI, lumba r spine , w/o contr ast No observ ation record ed. BARCODE Not Available 2017 10:30:45 Result Notes None recorded. Problems Name Problem SNOMED Code Status Onset Date Resolution Date Notes Provider Name and Address Organization Details Recorded Time Chronic cystitis 75535711 Active 2014 From Automated Load;Provi cici: Yomaira Daigle;Statu s: Active Not Available [facility] 6 03:54:56 Urinary tract infectious disease 55151491 Active 2014 From Automated Load;Provi cici: Yomaira Daigle;Statu s: Active Not Available [facility] 6 03:54:56 Problem Notes Documentation Provider Name and Address Organization Details Recorded Time Neurologist Consult Note : [facility] ? ? [address], [facility] [place] [id number], JUDY M (id #[id number], : 1945) [facility] [address] [facility] [address] [place]?[address] Phone:?? Fax:?? Encounter Summary - Progress Note Date Printed: ?09/29/2017 Documents sent via fax will include the followingmessage: This fax may contain sensitive and confidential personal health information that is being sent for the sole use of the intended recipient. Unintended recipients are directed to securely destroy any materials received. You are hereby notified that the unauthorized disclosure or other unlawful use of this fax or any personal health information is prohibited. To the extent patient information contained in this fax is subject to 42 CFR Part 2, this regulation prohibits unauthorized disclosure of these records. If you received this fax in error, please visit [email or web address] to notify the sender and confirm that the information will be destroyed. If you do not have internet access, please call to notify the sender and confirm that the information will be destroyed. Thank you for your attention and cooperation. [ID:[id number]] Patient Randall Gomez (72yo, F) #[id number] 1945 ?? Patient Demographics: Address [address] [place] [address] ? Work Phone ?? Encounter Notes: Encounter Reason/Date fup EMG 09/29/2017 - 08:30AM - NEUROLOGY [place] History of Present Illness Mrs. Gomez returns in follow-up regarding her tremors. She came in by herself today. I last saw her on 08/07/17, and on that visit, she had increased her Mysoline up to 250 mg daily Twice a day which had not helped with her tremors. I recommended switching to 250 mg one by mouth twice a day and I also recommended switching from lisinopril to propranolol. On that visit she also told me she been diagnosed with a neuropathy and she did have decreased ankle reflexes and vibratory loss. She complained of worsening balance. I recommended EMG/NCV and looking for other blood tests for other treatable causes of neuropathy. I recommended a trial of physical therapy. She was also having tension headaches every day. We reviewed her recent test results. Her EMG/NCV on 08/19/17 did not show evidence of neuropathy, it did show a mild chronic left L5 radiculopathy. On examination, she did have decreased reflexes and sensory loss in her feet, so I suspect that she has a small fiber neuropathy not reflected on NCVs. She had a normal CBC, glycohemoglobin, TSH, CMP, B12, CPK, Sjogren serologies, Lyme serology, serum immunofixation electrophoresis and methylmalonic acid. Her folic acid level was slightly low at 3.8. She has had an MRI of the cervical spine which showed cervical spinal stenosis. I'm not aware she's had an MRI of the lumbar spine. She will be seeing Dr. Martínez Michel later today about her spine problems. She complains of ongoing fibromyalgia pain in her arms, legs, neck and lower back. She denies having any recent numbness and tingling in her feet. She continues to have poor balance. She complains of weakness in both legs, left more than right. Her tremors are stable, symmetric on the 2 sides, Mysoline has been helpful. Her tremors are worse when she is tired and fatigued. I initially saw her in consultation on 06/24/17, primarily regarding her tremors. She also has peripheral neuropathy and fibromyalgia. She was taking Mysoline 200 mg twice a day without any side effects and I recommended increasing the dose to 250 mg twice a day. She complains of a widespread pain syndrome, she has pain in her arms and legs and the bones of the muscles. She has been diagnosed with fibromyalgia. #1. Essential tremor:She has a long history of tremors. They started about 20 years ago when she was in her 50s. Onset was gradual and the course has been slowly progressive. She has tremors in both hands which are fairly symmetric. She mainly notices the tremors while she is using her hands, eating and drinking. Her handwriting is getting sloppier and harder to read but not micrographic. She occasionally has a [id number] head tremor. There is a positive family history of tremors in her aunt, who has had tremors. #2. Tension-type headaches She complains of headache all the time . She has a headache every day. Some of her headaches in the back of her head which she attributes to her neck pain. She also has headaches in the bifrontal area. She has chronic neck and shoulder pain. She occasionally has slurred speech. She stutters. 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 Denies having any numbness or tingling. She feels somewhat weak all over. She's never been diagnosed with a stroke and she's never had a seizure. She has seen 2 neurologists for her tremors in the past. She thought that she saw a neurologist at the [facility] years ago and she was diagnosed with hereditary tremor and neuropathy. She thinks that he went to [place]. She later saw a second female neurologist but she cannot recall the name of either neurologist.There are no [facility] records that reflect a prior neurology consultation, although it could be in her paper chart.The first neurologist started her on primidone 50 mg and gradually increased the dose up to 3 times a day. Over the years, her primidone has been gradually increased. On her last visit, she was taking primidone 50 mg tablets, 4 pills twice a day 200 mg twice a day. Denies any sleepiness or side effects with the Mysoline. It is been quite helpful for the tremors.Her tremors are worse when she is tired, stressed out and when she has more fibromyalgia pain. She says she's also been diagnosed with peripheral neuropathy. She has poor balance. She recently saw Dr. Michel regarding her neck pain and her MRI of the cervical spine shows moderate to severe foraminal stenosis on the left at C6-7. He recommended pain management for now. He noted a resting tremor on exam and referred her to see me for the tremor. I reviewed her blood test results done in [place] on 05/07/17. Her CMP showed glucose 107, slightly high, normal up to 106, otherwise normal CMP. Her CBC was unremarkable. Urinalysis was suggestive of a UTI. Vitamin D level was normal. Review of SystemsNone recorded Vitals Ht: 5 ft 1 in09/29/2017 08:41 am Wt: 108 lbs09/29/2017 08:45 am BMI: 20.405 08:45 am BP: 144/70 sitting L arm09/29/2017 08:46 am Pulse: 64 bpm09/29/2017 08:46 am Results/InterpretationsNone recorded Physical ExamNone recorded Procedure DocumentationNone recorded Assessment and Plan1. Hereditary essential tremor- She has a long history of tremors. She started having tremors in her 50s, gradual in onset and slowly progressive.She has seen 2 neurologists the past and diagnosed with familial tremor and neuropathy.She has been on Mysoline for nearly 20 years and the Mysoline has been helpful.She remains on Mysoline 250 mg twice a day. She recently tried propranolol but was not able to tolerate because of stomach pain. She does not need a refill on her Mysoline. I told her that Mysoline and propranolol are the only 2 FDA approved medications for this condition.G25.0: Essential tremor 2. Idiopathic peripheral neuropathy- She's been told she has a peripheral neuropathy.She does have slightly decreased ankle reflexes and mild vibratory loss in her feet.Her recent nerve conduction studies did not show a neuropathy, but she does have findings on exam, so I think she has a small fiber neuropathy. Recent blood tests showed no specific treatable causes of the neuropathy. G60.9: Hereditary and idiopathic neuropathy, unspecified 3. Poor balance- Her chief complaint today is poor balance. I told her that neuropathy often causes poor balance. Fibromyalgia can cause poor balance.R27.8: Other lack of coordination 4. Chronic tension-type headache- She has headaches every day, some in the anterior portion of her head which sound like a tension-type headache, some in the back of her head which she attributed to cervical spondylosis.G44.229: Chronic tension-type headache, not intractable 5. Fibromyalgia- She has a long history of fibromyalgia.M79.7: Fibromyalgia 6. Folic acid deficiency (non anemic)- She has a history of Folic acid deficiency. I recommended she get started on folic acid OTC.E53.8: Deficiency of other specified B group vitamins 7. Lumbosacral radiculopathy- Her recent EMG shows a chronic left L5 radiculopathy. I suspect she has lumbar spondylosis. I don't think she's had an MRI lumbar spine.M54.16: Radiculopathy, lumbar region Discussion NotesShe returns in follow-up today. She recently tried propranolol for her tremors but it caused stomach problems. She says she has chronic trouble with stomach problems and it limits medications which she can take. She is on primidone 250 mg twice a day which is helped with the tremors, no side effects. She does complain of weakness in both legs, left more than right. Her EMG did show a mild chronic left L5 radiculopathy. Her blood tests showed no specific treatable causes of neuropathy. I recommended she stay on the primidone. I will see her back in 4 months. Return to Office MARTÍNEZ MICHEL MD for NEUROSURGERY CONSULT at NEUROSURGERY [facility] on 09/29/2017 at 10:00 AM to see TAB CASTREJON MD for NEUROLOGY RECHECK at NEUROLOGY [facility] on or around 01/30/2018 Patient Medical History: Allergies List Reviewed Allergies BETADINE: Rash - Reaction: RASH; Comment: Created By: Jay Oviedo;Created Date: 04/08/2014 1:10:58 PM; GABAPENTIN: - Comment: Created By: Jacob George;Created Date: 09/30/2011 1:44:09 PM; HYDROCHLOROTHIAZIDE: - Comment: Created By: Carson Alfred;Created Date: 04/24/2015 1:12:11 PM; SULINDAC: - Comment: Created By: Carson Alfred;Created Date: 04/24/2015 1:12:22 PM; TOLECTIN: Anaphylaxis (Severe) - Reaction: ANAPHYLAXIS;Severity: Severe; Comment: Created By: Rachna Chowdhury;Created Date: 02/03/2008 9:06:31 AM; Medications Reviewed Medications NameDate Source ALPRAZolam 0.25 mg tabletDaily Internal Note:Frequency: daily;Alt Frequency: prn;Medication Description: alprazolam; Dosage:3; Route:oral; refills:?bala maxwell.221 Cymbalta 60 mg capsule,delayed releaseDaily Internal Note:Frequency: daily;Medication Description: duloxetine; Dosage:1; Route:oral; refills:?bala maxwell.263 lisinopril 10 mg tabletInternal Note:Medication Description: lisinopril; Route:oral; refills:?bala maxwell.228 Macrodantin 50 mg capsuleDaily Internal Note:Duration: 30 days;Frequency: daily;Medication Description: nitrofurantoin; Dosage:1; Route:oral; refills:12; Quantity:30 /11/17?prescrib ed YOMAIRA DAIGLE MD montelukast 10 mg tablet1 tablet(s) every day.05/12/17?entered Bia April omeprazole 40 mg capsule,delayed releaseDaily Internal Note:Frequency: daily;Medication Description: omeprazole; Dosage:2; Route:oral; refills:?bala maxwell.243 oxybutynin chloride 5 mg tablet1 tablet(s) every day.05/12/17?entered Bia April primidone 250 mg tabletTake 1 tablet(s) twice a day by oral route. Internal Note:TAKES BID08/07/17?prescribed TAB CASTREJON MD sucralfate (bulk) powderInternal Note:Medication Description: sucralfate; Route:oral; refills:?baal maxwell.246 tiZANidine 2 mg tablettakes 4mg Internal Note:Medication Description: tizanidine; Route:oral; refills:?bala maxwell.246 traMADol 50 mg tabletFour times a day Internal Note:Frequency: qid;Medication Description: tramadol; Dosage:1-2; Route:oral; refills:?bala maxwell.247 traZODone 50 mg tabletBedtime Internal Note:Frequency: hs;Medication Description: trazodone; Dosage:1; Route:oral; refills:?bala maxwell.246 Vitamin D2 50,000 unit capsuleInternal Note:Instructions: 1.25 mg -weekly;Medication Description: ergocalciferol; Route:oral; refills:?bala maxwell.248 Family HistoryReviewed Family History Brother - Malignant tumor of prostate ?? - Hypertensive disorder ?? - Diabetes mellitus ?? - Heart disease Maternal Grandfather - Malignant tumor of prostate Sister - Heart disease ?? - Back problem ?? - Diabetes mellitus Past Medical HistoryReviewed Past Medical History Anxiety Disorder:Y Arthritis:Y Depression:Y Hypertension:Y Vaccine HistoryNone recorded Electronically Signed by: TAB CASTREJON MD Elvira Cassie [facility] 09/29/2017 09:45:05 Neurosurgery Consult Note : [facility] ? ? [address] [facility], [facility] [place] [id number] (id #[id number], : 1945) [facility] - NEUROSURGERY [address] [facility] [address] [place] [address] Date: 09/29/2017RE: Randall Gomez, : 1945, PT ID #[id number] Knox MD, I would like to thank you for referring Randall Gomez to our practice for consultation and evaluation. I have enclosed a copy of the office evaluation for your records. Sincerely, Electronically Signed by: MARTÍNEZ MICHEL MDMer[facility] Center[facility] Reason/Date LBP 09/29/2017 - 10:00AM - NEUROSURGERY [facility] History of Present Illness Mrs. Gomez is a 72-year-old female with the diagnosis of fibromyalgia. She presents again today to discuss low back issues. She is known to have significant neck pain and saw 2 weeks of relief after a cervical injection with Dr. Barth. She was seen by our office in April to discuss and neck issues. She has not seen him back over concerns that further steroids could worsen her osteoporosis. She describes approximately 5 months of increasing low back pain and leg weakness, worse on the left. She underwent an EMG and nerve conduction study with Dr. Castrejon that showed a mild left L5 radiculopathy. She describes 7 out of 10 pain which is aching. The pain is constant. She denies any alleviating factors. Her pain is worse with walking. She describes left leg weakness and occasional bladder incontinence. No bowel incontinence. She is undergone therapy and chiropractic manipulation with Dr. Moise. She is unable to tolerate anti-inflammatories or neuro modulating agents. As mentioned, she did have a positive result for approximately 2 weeks after cervical injection with Dr. Guerrero. She has a history of an L5-S1 back surgery by Dr. Keny Michel in 1988. Review of SystemsAdditionally reports:As noted per patient intake sheet and in the HPI. All other systems reviewed and negative.Physical ExamPatient is a 72-year-old female. Grossly unchanged from previous visit. Procedure DocumentationNone recordedAssessment/PlanMrs. 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 Her EMG and nerve conduction studies are consistent with a left L5 radiculopathy. We discussed the option of a L4-5 minimally invasive laminectomy for decompression of her descending L5 nerve roots. She is concerned about her current pain and weakness and wishes to proceed. Of note, the nerve studies showed no evidence of peripheral neuropathy. I am therefore hopeful that her leg issues are mainly lumbar in origin. We discussed the option of an L4-5 minimally invasive laminectomy at length. She understands that no hardware would be implanted. This would likely be done on an outpatient basis, but she may need to stay overnight for pain control, and adverse reaction to anesthesia or CSF leakage. We discussed risks and benefits of the operation at length. She wishes to proceed. She will speak with Mayela, our surgery coordinator, and find a date for surgery. We can continue to talk about her cervical issues in the future. 1. Lumbar radiculopathy- Minutes spent reviewing images, discussing the diagnosis and coordinating care: 12tllT90.16: Radiculopathy, lumbar region Return to Office to see TAB CASTREJON MD for NEUROLOGY RECHECK at NEUROLOGY [facility] on or around 01/30/2018 Lydia Mojica [facility] 10/02/2017 08:18:20 Neurologist Consult Note : [facility] ? ? [address] , [facility] [place] [id number], JUDY M (id #[id number], : 1945) [facility] NEUR[facility] [address] [facility] [address] [place] [address] Date: 11/10/2017RE: Randall Gomez, : 1945, PT ID #[id number] Knox MD, I would like to thank you for referring Randall Gomez to our practice for consultation and evaluation. I have enclosed a copy of the office evaluation for your records. Sincerely, Electronically Signed by: MARTÍNEZ MICHEL [facility] Reason/Date L4-5 Lami 11/10/2017 - 03:30PM - [facility]OSURGERY [facility] History of Present Illness Mrs. Gomez is a 72-year-old female status post minimally invasive L4-5 laminectomy. She reports good relief of her leg symptoms. She states that the recovery was unremarkable. She continues to have neck pain, and her last MRI was from August 2016. She is seen Dr. Shaw for these issues. Review of SystemsROS as noted in the HPIPhysical ExamPatient is a 72-year-old female. Incision is well-healed. Procedure DocumentationNone recordedAssessment/PlanMrs. Patricia is a 72-year-old female status post minimally invasive laminectomy at L4-5. I am pleased to hear her improvement I will let her continue to work with Dr. Shaw with regards to her neck pain. She denies any significant radicular symptoms to warrant an updated MRI at this time. She is comfortable with this plan. She will call us going forward if she would like to be reevaluated for her cervical issues. 1. Postoperative careZ48.89: Encounter for other specified surgical aftercare Return to Office TAB CASTREJON MD for NEUROLOGY RECHECK at NEUROLOGY [facility] on 02/03/2018 at 09:45 AM Lydia Mojica [facility] 11/11/2017 07:59:33 Procedures Surgical History Date Name Laterality Status Provider Name and Address Organization Details Recorded Time 08/20/19 18 Electromyography (EMG) with Nerve Conduction Study (NCV) completed Loly Moon (Nicky) [facility] 08/19/2017 14:28:47 05/12/20 17 Interpretation completed MORIAH ONOFRE PA-C [facility] [place], [address], [facility] 05/12/2017 15:24:32 08/27/18 89 Back Surgery completed Bia Chen [facility] 05/12/2017 14:33:35 Heart Surgery completed [facility] 10/02/2016 15:42:44 Cholecystectomy completed [facility] 10/02/2016 15:42:53 Hysterectomy completed [facility] 10/02/2016 15:42:58 Other completed [facility] 10/02/2016 15:43:08 Unlisted procedure stomach completed [facility] 10/02/2016 15:43:16 Imaging Results Imaging Date Name Status LastModified by Organiz ation Details LastModified Time 08/19/2017 nerve conduction study/EMG, peripheral neuropathy (PROC) completed [email or web address] Tab Castrejon MD [address] [place], [address], 08/20/2017 08:51:46 07/30/2017 XR, lumbosacral spine, 2 or 3 view completed [facility] Information not available 09/29/2017 10:28:39 08/08/2017 MRI, thoracic spine, w/o contrast completed [facility] Information not available 09/29/2017 10:30:45 08/08/2017 MRI, lumbar spine, w/o contrast completed [facility] Information not available 09/29/2017 10:30:45 Procedure Notes None recorded. Medical Equipment None Reported. Allergies Allergen ID Allergen Name Allergen Category Reaction Reaction Severity Criticality Documentation Date Start Date Code Code System Note Provider Name and Address Organization Details Recorded Time 582299 sulindac medicatio n Not available Not available Not available 04/18/20162014 78194 RxNorm Comme nt: Creat ed By: Carson espitia Date: 04/24 1:12: 22 PM; Not Available [facility] 6 10:51:48 730560 Betadine medicatio n rash Not available Not available 04/19/2016201375 0 RxNorm React ion: RASH; Comme nt: Creat ed By: Harshad low Date: 04/08 1:10: 58 PM; Not Available [facility] 6 03:21:25 [id number] gabapenti n medicatio n Not available Not available Not available 04/19/20162011 93901 RxNorm Comme nt: Creat ed By: Geena George ;Crea devante Date: 012 1:44: 09 PM; Not Available [facility] 6 05:25:06 [id number] hydrochlo rothiazid e medicatio n Not available Not available Not available 04/19/20162014 5487 RxNorm Comme nt: Creat ed By: Carson maddenCre ated Date: 04/24 1:12: 11 PM; Not Available [facility] 6 06:02:17 664619 tolmetin sodium medicatio n anaphylax is severe Not available 04/19/20162007 66559 RxNorm React ion: ANAPH YLAXI S;Sev erity : Sever e; Comme nt: Creat ed By: Van Chowdhury; Creat ed Date: 2007 9:06: 31 AM; Not Available [facility] 6 08:39:41 979148 orphenadr ine Not available Not available Not available Not available 12/05/20232021 7715 [facility] 4 14:58:57 522280 methylpre dnisolone medicatio n Not available Not available Not available 12/05/20232021 6902 Rx[facility]g [facility] 4 14:58:57 281041 doxycycli ne Not available Not available Not available Not available 12/05/2023 3640 RxNorm [facility] 4 14:58:57 765310 clindamyc in Not available other Not available Not available 12/05/2023 2582 [facility] 4 14:58:57 611487 nitrofura ntoin medicatio n nausea Not available Not available 12/05/20232021 7454 RxNorm Jammie Correia null, [facility] 4 14:58:57 523725 methenami ne medicatio n Not available Not available Not available 12/05/2023 6832 RxNorm Jammie Correia null, [facility] 4 14:58:57 324019 povidone- iodine medicatio n rash severe Not available 12/05/20232019 8611 RxNorm Jammie Correia null, [facility] 4 14:58:57 709422 amoxicill in medicatio n Not available Not available Not available 12/05/2023 723 RxNorm Jammie Correia null, [facility] 4 14:58:57 339219 propranol ol medicatio n Not available Not available Not available 12/05/20232021 8787 RxNorm Jammie Correia null, [facility] 4 14:58:57 523670 tolmetin medicatio n Not available Not available Not available 12/05/20232019 69206 RxNorm Jammie Correia null, [facility] 4 14:58:57 303335 ceftriaxo ne medicatio n nausea Not available Not available 12/05/20232019 2193 RxNorm Jammie Correia null, [facility] 4 14:58:57 364294 Rocephin medicatio n tachycard ia Not available Not available 12/05/2023 9449 RxNorm Jammie Correia null, [facility] 4 14:58:57 178269 Macrobid medicatio n Not available Not available Not available 12/05/2023 10366 1 RxNorm Jammie Correia null, [facility] 4 14:58:57 155958 tolmetin sodium medicatio n Not available Not available Not available 12/05/20232014 02121 RxNorm Jammie Correia null, [facility] 4 14:58:57 778300 Austedo medicatio n Not available Not available Not available 12/05/2023 41296 11 RxNorm Jammie Correia [facility] 14:58:57 Medications Name Sig Start Date Stop Date Status Note LastModified by Organization Details LastModified Time primidone 50 mg tablet active Not Available Not Available Not Available tizanidin e 2 mg tablet takes 4mg active Medicati on Descript ion: tizanidi ne; Route:or al; refills: 0 Not Available Not Available Not Available trazodone 50 mg tablet Bedtime active Frequenc y: hs;Medic ation Descript ion: trazodon e; Dosage:1 ; Route:or al; refills: 0 Not Available Not Available Not Available omeprazol e 40 mg capsule,d elayed release Daily active Frequenc y: daily;Me dication Descript ion: omeprazo le; Dosage:2 ; Route:or al; refills: 0 Not Available Not Available Not Available tramadol 50 mg tablet Four times a day active Frequenc y: qid;Medi cation Descript ion: tramadol ; Dosage:1 -2; Route:or al; refills: 0 Not Available Not Available Not Available propranol ol 10 mg tablet Take 2 tablets 3 times a day by oral route. 09/29 completed Not Available Not Available Not Available alprazola m 0.25 mg tablet Daily active Frequenc y: daily;Al t Frequenc y: prn;Medi cation Descript ion: alprazol am; Dosage:3 ; Route:or al; refills: 0 Not Available Not Available Not Available primidone 250 mg tablet active Not Available Not Available Not Available sucralfat e (bulk) powder 12/18 completed Medicati on Descript ion: sucralfa te; Route:or al; refills: 0 Not Available Not Available Not Available buspirone 10 mg tablet Take 2 tablets 3 times a day by oral route. 2017 active Not Available Not Available Not Avai lable Macrodant in 50 mg capsule Daily 2016 active Duration : 30 days;Bello quency: daily;Me dication Descript ion: nitrofur antoin; Dosage:1 ; Route:or al; refills: 12; Quantity :30 capsule Not Available Not Available Not Available lisinopri l 10 mg tablet 12/18 completed Medicati on Descript ion: lisinopr il; Route:or al; refills: 0 Not Available Not Available Not Available monteluka st 10 mg tablet Take 1 tablet every day by oral route. 12/18 completed Not Available Not Available Not Available Vitamin D2 1,250 mcg (50,000 unit) capsule 12/18 completed Instruct ions: 1.25 mg -weekly; Medicati on Descript ion: ergocalc iferol; Route:or al; refills: 0 Not Available Not Available Not Available Percocet 5 mg-325 mg tablet Take 1 tablet every 6-8 hours by oral route as needed. 12/18 completed Not Available Not Available Not Available oxybutyni n chloride 5 mg tablet Take 1 tablet every day by oral route. 12/18 completed Not Available Not Available Not Available lisinopri l 40 mg tablet Take 1 tablet twice a day by oral route. active Not Available Not Available No t Available Fiber-Tab s 625 mg tablet 05/06 completed Medicati on Descript ion: polycarb ophil; Route:or al; refills: 0 Not Available Not Available Not Available Benadryl 25 mg capsule 05/06 completed Alt Frequenc y: prn;Medi cation Descript ion: diphenhy dramine; Route:or al; refills: 0 Not Available Not Available Not Available Cymbalta 60 mg capsule,d elayed release Daily active Frequenc y: daily;Me dication Descript ion: duloxeti ne; Dosage:1 ; Route:or al; refills: 0 Not Available Not Available Not Available Bystolic 5 mg tablet Take 1 tablet every day by oral route. active Not Available Not Available No t Available Vitamin B12 05/06 completed Medicati on Descript ion: cyanocob alamin; refills: 0 Not Available Not Available Not Available Vitals Date Recorded Body height Body mass index (BMI) Body weight Heart rate Systolic blood pressure Diastolic blood pressure Provider Name and Address Organization Details Last Updated DateTime 8 154.94 cm 20.4 kg/m2 29550.9 8 g 64 /min 144 mm[Hg] 70 mm[Hg] Bruna [facility] 8 08:46:20 Date Recorded Body height Body mass index (BMI) Body weight Systolic blood pressure Diastolic blood pressure Provider Name and Address Organization Details Last Updated DateTime 09/29/2017 154.94 cm 19.8 kg/m2 77407.2 g 120 mm[Hg] 80 mm[Hg] Bia Yiholz [facility] 8 10:23:13 Date Recorded Body height Body mass index (BMI) Body weight Systolic blood pressure Diastolic blood pressure Provider Name and Address Organization Details Last Updated DateTime 11/10/2017 154.94 cm 19.8 kg/m2 12601.2 g 114 mm[Hg] 78 mm[Hg] [facility] 8 16:16:37 Date Recorded Body height Body mass index (BMI) Body weight Heart rate Systolic blood pressure Diastolic blood pressure Provider Name and Address Organization Details Last Updated DateTime 8 154.94 cm 19.8 kg/m2 81919.2 g 62 /min 138 mm[Hg] 60 mm[Hg] Elidia Rogersmonica [facility] 8 10:31:44 Social History Question Answer Notes LastModified by Organizat ion Details LastModified Time Tobacco Smoking Status Never [facility]oker [facility] 10/02/2016 15:42:08 Accident Related Injury No Information not available 05/12/2017 What Is Your Level Of Alcohol Consumption? None Information not available 10/02/2016 Auto Related Injury? No Information not available 05/12/2017 What Is Your Occupation? Retired Information not available 10/02/2016 Marital Status Informatio n not available 10/02/2016 What Was The Date Of Your Most Recent Tobacco Screening? 12/18/2017 Information n ot available 07/13/2019 How Much Tobacco Do You Smoke? No Information not available 05/12/2017 Work Related Injury? No Information not available 05/12/2017 Sex: Unknown Functional Status None recorded. Mental Status None recorded. Family History Relationship Description Onset Age of this Age Resolved Age Notes LastModified by Organization Details LastModified Time Brother Malignant neoplasm of prostate dwinburn Not available 2017 10:28:37 Brother Hypertensive disorder 55 dwinburn Not available 2017 10:28:38 Brother Diabetes mellitus 65 76 Not available 09/29 10:12:17 Brother Heart disease Not available 05/12 14:30:57 Brother Family history of malignant neoplasm 74 76 Not available 09/29 10:12:17 Brother Hypertensive disorder dwinburn Not available 2017 10:28:38 Brother Diabetes mellitus 60 dwinburn Not available 2017 10:28:38 Brother Heart disease dwinburn Not available 2017 10:28:38 Maternal Grandfather Malignant neoplasm of prostate dwinburn Not available 2017 10:28:38 Sister Heart disease Not available 05/12 14:30:57 Sister Back problem dwinburn Not avail able 12/18/2017 10:28:38 Sister Diabetes mellitus 65 dwinburn Not available 2017 10:28:38 Sister Hypertensive disorder 45 dwinburn Not available 2017 10:28:38 Sister Dementia 70 dwinburn Not available 12/18/2017 10:28:38 Medical History Condition Response TENS Unit for current problem N Massage Therapy for current problem N Coronary Artery Disease N Traction for current problem N Gout N Other N Thyroid Disease N Hyperthyroidism N Narcotic Pain Medication for current pro blem N Emphysema N COPD N Hypothyroidism N Depression Y Injections for current problem Y Deep Vein Thrombosis N Anxiety Disorder Y Arthritis Y Cancer N Stroke N Crohn's Disease N High Cholesterol N Liver Disease N Fibromyalgia Y Dialysis N Kidney Disease N Neuro-modulating Drugs for current probl em N Black Lung N Gallbladder Disease N Steroid Pack for current problem N NSAID Use N Osteoporosis/Osteopenia Y Anemia Y Colon Polyps N Heart Attack (NH) N Ulcers Y Mental Illness N Diabetes N Bleeding Disorder N Tuberculosis N Genetic Disorder N AIDS/HIV N Congestive Heart Failure (CHF) N Chiropractor treatment for current probl em Y Kidney Failure N Diverticulitis N Asthma N Ultrasound Treatment for current problem N Epilepsy/Seizures N Sleep Apnea N Thyroid Disorder N Physical Therapy Treatments for current problem N Heart Disease N Pulmonary Embolism N Hypertension Y Gynecological HistoryNo gynecological history recorded. Obstetrics History GPAL:G 0 P 0 0 0 0 Immunizations Vaccine Type Date Status Note Provider Nam e and Address Organization Details Recorded Time Influenza, high-dose, quadrivalent, PF 1 completed Jammie Bren [facility] 12/05/2023 14:59:02 Influenza, high-dose, quadrivalent, PF 2 completed Jammie Bren [facility] 12/05/2023 14:59:02 COVID-19, mRNA, LNP-S, PF, 30 mcg/0.3 mL dose 1 completed Jammiejosr Lomeliong [facility] 12/05/2023 14:59:02 COVID-19, mRNA, LNP-S, PF, 30 mcg/0.3 mL dose 1 completed Jammie Bren [facility] 12/05/2023 14:59:02 COVID-19, mRNA, LNP-S, PF, 30 mcg/0.3 mL dose [facility] 14:59:02 pneumococcal polysaccharide PPV23 2 completed Jammiejosr Correia [facility] 12/05/2023 14:59:02 influenza, unspecified formulation [address] [facility] 12/05/2023 14:59:02 Tdap 8 [facility] 14:59:02 Pneumococcal conjugate PCV 13 1 [facility] 14:59:02 zoster live 3 [facility] 14:59:02 Past Encounters Encounter ID Performer Location Encounter Start Date Encounter Closed Date Diagnosis/Indication Diagnosis SNOMED-CT Code Diagnosis ICD10 Code Diagnosis Note [id number] MD JAMEEL BALL [facility] [address] [place] [address] 10/02/2016 13:26:02 10/03/2016 10:28:15 Urinary tract infectious disease 19568693 N39.0 [id number] MARTÍNEZ MICHEL MD NEUROSURG [facility] [address] [place] [address] 05/12/2017 14:26:28 05/12/2017 15:56:58 Cervical spondylosis 760386557 M47.812 Cervical MRI reveals mod to severe foraminal stenosis on the left at C6-7. She has multiple areas of pain, with her occiput and headaches being the worse. While surgical interventi on in the form of a C6-7 ACDF would have a good chance of helping with the shoulder pain, it would far less predictabl e to know how much, if any, response she would get for her occipital headaches. Will have her follow up with her pain doctor, Dr. Guerrero, to inquire about either a LEFT C6-7 facet block or a left-sided C6-7 epidural injection. If this provides her with good relief of her main symptoms, it would be a good predictor that surgery may be helpful. She contact the office if she gets a good response and we will schedule follow up to discuss potential surgery. She and her are in agreement with this plan. Resting tremor 18988731 G25.2 Resting tremor noted on exam today. She states this has progressiv jacob worsened over time. She has seen a neurologis t for this in the past, but this was some time ago. She could not recall who her neurologis t was. I will refer her to see a new neurologis t for her tremors. [id number] TAB CASTREJON MD NEUROLOGY [facility] CL[facility] [address] [place] [address] 06/24/2017 07:53:08 06/24/2017 08:46:49 Hereditary essential tremor [id number] G25.0 She has a long history of tremors. She started having tremors in her 50s, gradual in onset and slowly progressiv e.She has seen 2 neurologis ts the past and diagnosed with familial tremor and neuropathy .She has been on Mysoline for nearly 20 years and the Mysoline has been helpful.It sounds like her Mysoline dose is been gradually increased and she's currently taking 50 mg tablets, 2 pills twice a day.Denies any side effects of the Mysoline.S he's never been on any other medication for her tremors apart from the Mysoline. We reviewed my handout on treatment options for essential tremor.We could increase her Mysoline dose, currently on 200 mg twice a day. She's not having any side effects with it.Another option would be to incorporat e propranolo l into her antihypert ensive regimen, I would defer to Dr. Nazario about that.She has taken BuSpar for anxiety in the past but not recently. BuSpar would be another option. We discussed her treatment options.Tunde stapleton would prefer to try to increase her Mysoline dose, currently on 50 mg tablets 4 pills twice a day.I recommende d increasing the evening dose to 5 pills for 2 weeks, then increase the morning dose to 5 pills thereafter .If she can tolerate Mysoline 50 mg tablets 5 pills twice a day, she could then be switched to Mysoline 250 mg tablets, one pill twice a day which would be much easier for her. She has an appointmen t to see Dr. Nazario next month and she will get her room without prescripti on from him. Idiopathic peripheral neuropathy 58836792 G60.9 She's been told she has a peripheral neuropathy .She does have slightly decreased ankle reflexes and mild vibratory loss in her feet.She's never had EMG/NCV.I told her I typically will check blood tests for treatable causes of neuropathy .She says that Dr. Nazario checks a lot of blood tests with her.I will get records from blood tests from his office. Fibromyalgia [id number] M 79.7 She has a long history of fibromyalg ia. Chronic te nsion-type headache [id number] G44.229 She has headaches every day, some in the anterior portion of her head which sound like a tension-ty pe headache, some in the back of her head which she attributed to cervical spondylosi s. [id number] TAB CASTREJON MD NEUROLOGY [facility] [address] [place] [address] 08/07/2017 10:01:11 08/07/2017 11:18:01 Hereditary essential tremor 005263929 G25.0 She has a long history of tremors. She started having tremors in her 50s, gradual in onset and slowly progressiv e.She has seen 2 neurologis ts the past and diagnosed with familial tremor and neuropathy .She has been on Mysoline for nearly 20 years and the Mysoline has been helpful.Tunde stapleton recently increased her Mysoline dose to 50 mg, 5 pills twice a day. It has not helped with her tremors. We'll switch her to primidone 250 mg one by mouth twice a day. I recommende d switching from lisinopril to propranolo l. I told her to stop the lisinopril . I emailed a prescripti on for propranolo l to her pharmacy, she'll gradually build up to 30 mg twice a day. I asked her to monitor blood pressure carefully. If she tolerates 30 mg twice a day, we could switch her to propranolo l LA 60 mg daily. Idiopathic peripheral neuropathy 44366958 G60.9 She's been told she has a peripheral neuropathy .She does have slightly decreased ankle reflexes and mild vibratory loss in her feet.Today she complains of worsening balance.I suspect this is related to the neuropathy .Her left side bothers her more than the right side.I will arrange EMG/NCV of the left arm and left leg, check blood tests for treatable causes of neuropathy and I gave her prescripti on for some physical therapy with gait training.I told her poor balance is extraordin arily difficult to try to help with.We'll try gait training and PT. Chronic te nsion-type headache 410069774 G44.229 She has headaches every day, some in the anterior portion of her head which sound like a tension-ty pe headache, some in the back of her head which she attributed to cervical spondylosi s. Fibromyalgia 019152573 M 79.7 She has a long history of fibromyalg ia. Hyperglycemia 06773712 R 73.9 Her recent blood sugar was 107. We'll check a glycohemog lobin. Poor balance 778003407 R 27.8 Her chief complaint today is poor balance. I told her that neuropathy often causes poor balance. Fibromyalg ia can cause poor balance. [id number] TAB CASTREJON MD NEUROLOGY [facility] [address] [facility] [place] [address] 08/19/2017 12:47:42 08/19/2017 14:53:42 Skin sensation disturbance 73153848 R20.9 Polymyalgia 05415673 M35 .3 Muscle pain 66465156 M79 .1 Low back pain 826878820 M54.5 Lumbar radiculopathy 128 554952 M54.16 Neck pain 18246660 M54.2 [id number] TAB CASTREJON MD NEUROLOGY [facility] [address] [place] [address] 09/29/2017 08:35:05 09/29/2017 09:23:46 Hereditary essential tremor 667928154 G25.0 She has a long history of tremors. She started having tremors in her 50s, gradual in onset and slowly progressiv e.She has seen 2 neurologis ts the past and diagnosed with familial tremor and neuropathy .She has been on Mysoline for nearly 20 years and the Mysoline has been helpful.Tunde stapleton remains on Mysoline 250 mg twice a day. She recently tried propranolo l but was not able to tolerate because of stomach pain. She does not need a refill on her Mysoline. I told her that Mysoline and propranolo l are the only 2 FDA approved medication s for this condition. Idiopathic peripheral neuropathy 82767882 G60.9 She's been told she has a peripheral neuropathy .She does have slightly decreased ankle reflexes and mild vibratory loss in her feet.Her recent nerve conduction studies did not show a neuropathy , but she does have findings on exam, so I think she has a small fiber neuropathy . Recent blood tests showed no specific treatable causes of the neuropathy . Poor balance 508993016 R 27.8 Her chief complaint today is poor balance. I told her that neuropathy often causes poor balance. Fibromyalg ia can cause poor balance. Chronic te nsion-type headache 812088020 G44.229 She has headaches every day, some in the anterior portion of her head which sound like a tension-ty pe headache, some in the back of her head which she attributed to cervical spondylosi s. Fibromyalgia 644007623 M 79.7 She has a long history of fibromyalg ia. Folic acid deficiency (non anemic) 94134854 E53.8 She has a history of Folic acid deficiency . I recommende d she get started on folic acid OTC. Lumbosacra l radiculopathy 1816299 M54.16 Her recent EMG shows a chronic left L5 radiculopa thy. I suspect she has lumbar spondylosi s. I don't think she's had an MRI lumbar spine. [id number] MARTÍNEZ MICHEL [facility] [address] [place] [address] 09/29/2017 09:39:16 09/29/2017 11:41:23 Lumbar radiculopathy 267018613 M54.16 Minutes spent reviewing images, discussing the diagnosis and coordinati ng care: 30min [id number] MARTÍNEZ MICHEL [facility] [address] [place] [address] 11/10/2017 15:12:44 11/12/2017 13:04:16 Postoperative care [id number] Z48.89 [id number] TAB CASTREJON MD NEUROLOGY [facility] CLOSED [address] [place] [address] 12/18/2017 10:19:46 12/18/2017 11:20:41 Hereditary essential tremor 386497726 G25.0 She has a long history of tremors. She started having tremors in her 50s, gradual in onset and slowly progressiv e.She has seen 2 neurologis ts the past and diagnosed with familial tremor and neuropathy .She has been on Mysoline for nearly 20 years and the Mysoline has been helpful.Sh daya remains on Mysoline 250 mg twice a day.She tried propranolo l but was not able to tolerate because of stomach pain.I told her that Mysoline and propranolo l are the only 2 FDA approved medication s for this condition. Recently, her blood pressure has been running high and she was started on Bystolic, which I explained is similar to propranolo l tends to help with the tremors. Idiopathic peripheral neuropathy 97258128 G60.9 She's been told she has a peripheral neuropathy .She does have slightly decreased ankle reflexes and mild vibratory loss in her feet.Her recent nerve conduction studies did not show a neuropathy , but she does have findings on exam, so I think she has a small fiber neuropathy .Recent blood tests showed no specific treatable causes of the neuropathy .I think she has a small fiber idiopathic peripheral neuropathy . She denies having any recent numbness or tingling in her feet. Poor balance 776184906 R 27.8 Her chief complaint today is poor balance. I told her that neuropathy often causes poor balance. Fibromyalg ia can cause poor balance. Chronic te nsion-type headache 752945827 G44.229 She has headaches every day, some in the anterior portion of her head which sound like a tension-ty pe headache, some in the back of her head which she attributed to cervical spondylosi s. Fibromyalgia 001353956 M 79.7 She has a long history of fibromyalg ia. Folic acid deficiency (non anemic) 83946413 E53.8 She has a history of Folic acid deficiency . I recommende d she get started on folic acid OTC. Lumbosacra l radiculopathy 1585426 M54.16 Her EMG shows a chronic left L5 radiculopa thy. Her MRI of the lumbar time showed bilateral lateral recess stenosis at L4-5. She is status post minimally invasive lumbar spine surgery with Dr. Michel in 11/10. Health Concerns Section Related Observation LastModified by Organization Detai ls LastModified Time None Recorded Concern Status LastModified by Organization Details LastModified Time None Recorded Advance Directives Directive None Recorded Payers Insurance Date Sequence Insurance Name Policy Number Policy Carrera Covered Member ID Carrera Member ID Guarantor Name 12/05/2023 1 [employer] (MEDICARE SUPPLEMENT) [id number] Randall Diazmontez [id number] Randall Cueva Patircia 12/05/2023 1 [place] Randall Cueva Patricia [id number] Randall Cueva Patricia 12/08/2023 1 [employer] (MEDICARE REPLACEMENT/A DVANTAGE - PPO) Randall Diazmontez [id number] Randall Gomez Notes Date Note Type Note Provider Name and Address Organization Details Recorded Time 09/29/2017 text/html Mrs. Gomez retu rns in follow-up regarding her tremors. She came in by herself today. I last saw her on 08/07/17, and on that visit, she had increased her Mysoline up to 250 mg daily Twice a day which had not helped with her tremors. I recommended switching to 250 mg one by mouth twice a day and I also recommended switching from lisinopril to propranolol. On that visit she also told me she been diagnosed with a neuropathy and she did have decreased ankle reflexes and vibratory loss. She complained of worsening balance. I recommended EMG/NCV and looking for other blood tests for other treatable causes of neuropathy. I recommended a trial of physical therapy. She was also having tension headaches every day. We reviewed her recent test results. Her EMG/NCV on 08/19/17 did not show evidence of neuropathy, it did show a mild chronic left L5 radiculopathy. On examination, she did have decreased reflexes and sensory loss in her feet, so I suspect that she has a small fiber neuropathy not reflected on NCVs. She had a normal CBC, glycohemoglobin, TSH, CMP, B12, CPK, Sjogren serologies, Lyme serology, serum immunofixation electrophoresis and methylmalonic acid. Her folic acid level was slightly low at 3.8. She has had an MRI of the cervical spine which showed cervical spinal stenosis. I'm not aware she's had an MRI of the lumbar spine. She will be seeing Dr. Martínez Michel later today about her spine problems. She complains of ongoing fibromyalgia pain in her arms, legs, neck and lower back. She denies having any recent numbness and tingling in her feet. She continues to have poor balance. She complains of weakness in both legs, left more than right. Her tremors are stable, symmetric on the 2 sides, Mysoline has been helpful. Her tremors are worse when she is tired and fatigued. I initially saw her in consultation on 06/24/17, primarily regarding her tremors. She also has peripheral neuropathy and fibromyalgia. She was taking Mysoline 200 mg twice a day without any side effects and I recommended increasing the dose to 250 mg twice a day. She complains of a widespread pain syndrome, she has pain in her arms and legs and the bones of the muscles. She has been diagnosed with fibromyalgia. #1. Essential tremor:She has a long history of tremors. They started about 20 years ago when she was in her 50s. Onset was gradual and the course has been slowly progressive. She has tremors in both hands which are fairly symmetric. She mainly notices the tremors while she is using her hands, eating and drinking. Her handwriting is getting sloppier and harder to read but not micrographic. She occasionally has a [id number] head tremor. There is a positive family history of tremors in her aunt, who has had tremors. #2. Tension-type headaches She complains of headache all the time . She has a headache every day. Some of her headaches in the back of her head which she attributes to her neck pain. She also has headaches in the bifrontal area. She has chronic neck and shoulder pain. She occasionally has slurred speech. She stutters. 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 Denies having any numbness or tingling. She feels somewhat weak all over. She's never been diagnosed with a stroke and she's never had a seizure. She has seen 2 neurologists for her tremors in the past. She thought that she saw a neurologist at the [facility] years ago and she was diagnosed with hereditary tremor and neuropathy. She thinks that he went to [place]. She later saw a second female neurologist but she cannot recall the name of either neurologist.There are no [facility] records that reflect a prior neurology consultation, although it could be in her paper chart.The first neurologist started her on primidone 50 mg and gradually increased the dose up to 3 times a day. Over the years, her primidone has been gradually increased. On her last visit, she was taking primidone 50 mg tablets, 4 pills twice a day 200 mg twice a day. Denies any sleepiness or side effects with the Mysoline. It is been quite helpful for the tremors.Her tremors are worse when she is tired, stressed out and when she has more fibromyalgia pain. She says she's also been diagnosed with peripheral neuropathy. She has poor balance. She recently saw Dr. Michel regarding her neck pain and her MRI of the cervical spine shows moderate to severe foraminal stenosis on the left at C6-7. He recommended pain management for now. He noted a resting tremor on exam and referred her to see me for the tremor. I reviewed her blood test results done in [place] on 05/07/17. Her CMP showed glucose 107, slightly high, normal up to 106, otherwise normal CMP. Her CBC was unremarkable. Urinalysis was suggestive of a UTI. Vitamin D level was normal. TAB CASTREJON MD [facility] [place], [address], [facility] 09/29/2017 09:18:32 09/29/2017 text/html Mrs. Gomez is a 72-year-old female with the diagnosis of fibromyalgia. She presents again today to discuss low back issues. She is known to have significant neck pain and saw 2 weeks of relief after a cervical injection with Dr. Barth. She was seen by our office in April to discuss and neck issues. She has not seen him back over concerns that further steroids could worsen her osteoporosis. She describes approximately 5 months of increasing low back pain and leg weakness, worse on the left. She underwent an EMG and nerve conduction study with Dr. Castrejon that showed a mild left L5 radiculopathy. She describes 7 out of 10 pain which is aching. The pain is constant. She denies any alleviating factors. Her pain is worse with walking. She describes left leg weakness and occasional bladder incontinence. No bowel incontinence. She is undergone therapy and chiropractic manipulation with Dr. Moise. She is unable to tolerate anti-inflammatories or neuro modulating agents. As mentioned, she did have a positive result for approximately 2 weeks after cervical injection with Dr. Guerrero. She has a history of an L5-S1 back surgery by Dr. Keny Michel in 1988. MARTÍNEZ MICHEL MD [address] [place] [address], [phone], [facility] 09/29/2017 10:42:09 11/10/2017 text/html Mrs. Gomez is a 72-year-old female status post minimally invasive L4-5 laminectomy. She reports good relief of her leg symptoms. She states that the recovery was unremarkable. She continues to have neck pain, and her last MRI was from August 2016. She is seen Dr. Shaw for these issues. MARTÍNEZ MICHEL MD [facility] [place], [phone], [facility] 11/10/2017 16:58:45 12/18/2017 text/html Mrs. Gomez retu rns in follow-up regarding her essential tremor, frequent cervicogenic headaches, idiopathic peripheral neuropathy, fibromyalgia and a chronic left L5 radiculopathy. She came in by herself today. I last saw her on 09/29/17, and on that visit, she had recently tried propranolol for her tremors but it caused stomach problems and was discontinued. She was on primidone 250 mg twice a day had helped with the tremors without side effects. She complained of weakness in her legs, left more than right and we reviewed her EMG, showing a mild chronic left L5 radiculopathy. Blood tests showed no other treatable cause of neuropathy. I felt her neuropathy was idiopathic. She returns in follow-up today. She recently underwent minimally invasive L4-[address] Martínez Michel in 11/10. She's been having more tremors but she mainly complains of twitches and jerks. She's been having a lot of jerking in her head for the last 3 months. It has been worse for the last 3 weeks. She denies having many tremors in her hands. She remains on primidone 250 mg twice a day. Just one week ago, she was started on Bystolic 5 mg daily for elevated blood pressure. Recently, her blood pressure has been quite high and her lisinopril dose was increased from 10 mg daily up to 80 mg daily and a week ago, she was started on Bystolic. I told her that Bystolic helps with familial tremor. I told her that it is similar to the propranolol which she previously tried. Her tremors tend to be worse if she's anxious or nervous or if she's having fibromyalgia pain. I told her jerks are common in patients who have essential tremor. Sometimes they can be triggered by medication, including Cymbalta and tramadol which is currently taking. They can also be triggered by sleep deprivation, stress, etc. Dr. Nazario recently discontinued multiple medications, including oxybutynin, Carafate, vitamin D and Singulair. She felt no better with these medicine changes. She denies having any recent numbness or tingling in her feet. She does have trouble with balance. She goes to the pain clinic run by Dr. Shaw. Recently, her cervicogenic headaches have been improving. She recently had a radiofrequency lesion to her cervical spine which help with her headaches. She does have headaches in the back of her head which relate to how much neck pain she is having.. She's not taking folic acid. She did have mild folic acid deficiency with a folic acid level of 3.8. She has been diagnosed with a neuropathy and I noted that she did have decreased ankle reflexes and vibratory loss. Her tremors are stable, symmetric on the 2 sides, Mysoline has been helpful. Her tremors are worse when she is tired and fatigued. I initially saw her in consultation on 06/24/17, primarily regarding her tremors. She also has peripheral neuropathy and fibromyalgia. She was taking Mysoline 200 mg twice a day without any side effects and I recommended increasing the dose to 250 mg twice a day. She complains of a widespread pain syndrome, she has pain in her arms and legs and the bones of the muscles. She has been diagnosed with fibromyalgia. #1. Essential tremor:She has a long history of tremors. They started about 20 years ago when she was in her 50s. Onset was gradual and the course has been slowly progressive. She has tremors in both hands which are fairly symmetric. She mainly notices the tremors while she is using her hands, eating and drinking. Her handwriting is getting sloppier and harder to read but not micrographic. She occasionally has a [id number] head tremor. There is a positive family history of tremors in her aunt, who has had tremors. #2. Tension-type headachesShe complains of headache all the time . She has a headache every day. Some of her headaches in the back of her head which she attributes to her neck pain. She also has headaches in the bifrontal area. She has chronic neck and shoulder pain. She has seen 2 neurologists for her tremors in the past. She thought that she saw a neurologist at the [facility] years ago and she was diagnosed with hereditary tremor and neuropathy. She thinks that he went to [place]. She later saw a second female neurologist but she cannot recall the name of either neurologist.The first neurologist started her on primidone 50 mg and gradually increased the dose up to 3 times a day. Over the years, her primidone has been gradually increased. On her last visit, she was taking primidone 50 mg tablets, 4 pills twice a day 200 mg twice a day. Denies any sleepiness or side effects with the Mysoline. It has been quite helpful for the tremors.Her tremors are worse when she is tired, stressed out and when she has more fibromyalgia pain. She saw Dr. Michel regarding her neck pain and her MRI of the cervical spine shows moderate to severe foraminal stenosis on the left at C6-7. He recommended pain management for now. He noted a resting tremor on exam and referred her to see me for the tremor. Laboratory studies: EMG/NCV on 08/19/17 did not show evidence of neuropathy, it did show a mild chronic left L5 radiculopathy. On examination, she does have decreased reflexes and sensory loss in her feet, so I suspect that she has a small fiber neuropathy not reflected on NCVs. She had a normal CBC, glycohemoglobin, TSH, CMP, B12, CPK, Sjogren serologies, Lyme serology, serum immunofixation electrophoresis and methylmalonic acid. Her folic acid level was slightly low at 3.8. MRI of the cervical spine showed cervical spinal stenosis. Her recent MRI scan of the lumbar spine showed bilateral L4-5 recess stenosis. Her recent EMG showed a mild chronic left L5 radiculopathy. She is status post prior L5-S1 spine surgery by Dr. Keny Michel years ago. Blood test results in [place] on 05/07/17: Her CMP showed glucose 107, slightly high, normal up to 106, otherwise normal CMP. Her CBC was unremarkable. Vitamin D level was normal. Urinalysis was suggestive of a UTI. TAB CASTREJON MD [address] [place] [address], [phone], [facility] 12/28/2017 15:44:25 OBGyn Episode No OBEpisode recorded.
[2024-09-29 11:33] VITALS: BP 140/71; PULSE 61; RESP 14; O2SAT 98; BMI 22.8
--- NOTE | 2024-09-29 12:04 | EXP.PAIN.PRO ---
Procedure Date: 09/29/24 Time: 11:38 Anesthesiologist:: Taylor Ray APRN Complications:: None Pre-procedure Diagnosis:: Degenerative disc disease of lumbar spine with lumbar radiculopathy symptoms Post-procedure Diagnosis:: Same Indications for Procedure:: Patient is a pleasant 79-year-old female who presents today for suture and staple removal as well as intrathecal adjustment. Today she rates her pain a 5 out of 10. Patient denies any new falls or injuries. She does state that she did fine with her increase on her last visit. Patient does make mention that she has been having itching however it seems to not correlate with the increases. Patient states that she just had generalized overall. Patient is currently managed with Dilaudid 0.5 mg/mL with a daily dose of 0.32595 mg/day. She denies any side effects. Her Jesse has been reviewed and is appropriate. Physical Exam: General: Alert and oriented x3, no acute distress, pleasant and cooperative Lungs: Respirations even and unlabored, symmetrical chest expansion Eyes: PERRL Musculoskeletal: Flexion and extension of lumbar [spine] somewhat guarded secondary to pain, [antalgic gait noted] Neurological: Speech clear, no gross sensory deficit Skin: Incision sites are clean, dry, well-approximated with minimal erythema and sutures and marek intact Procedure Details:: Informed consent was obtained and the risk and benefits of the procedure were explained to the patient. Patient did have noninvasive monitoring was placed including noninvasive blood pressure cuff and pulse oximeter. Patient's pump was interrogated and was reprogrammed to Dilaudid 0.08343 mg/day. The patient tolerated the procedure well with no complications. Plan and Disposition:: Patient tolerated the procedure well with no complications and was discharged neurologically intact. We were able to take out all of her sutures and marek and applied skin glue and Steri-Strips. Patient was counseled to continue her postop restrictions the full 6 weeks. Patient will return to clinic in 1 month for reevaluation of symptoms and plan of care. We will see the patient back in the clinic at the next intrathecal refill. Patient has been instructed to contact the clinic with any concerns before the next appointment. Dr. Garcia has reviewed this note and agrees with this plan of care. This note was dictated using voice recognition software and make contain errors or omissions. -- It Is medically necessary for this patient to continue to have their intrathecal pump refilled at regular intervals. This patient had an intrathecal pain pump implanted after meeting criteria of chronic intractable pain for greater than 3 months and failing conservative treatments. Patient has committed and been compliant to the treatment plan and all planned follow up care. Since implantation of the intrathecal pain pump, the patient has had decreased pain and been more functional. Oral medications have been reduced including intake of oral opioids. Patient continues to do well with intrathecal therapy with decrease in pain symptoms and increase in functional status. Stopping intrathecal medications can lead to life threatening withdrawal, seizures, cardiac arrest, severe pain, and possible . Pumps that are not refilled at regular intervals can be damages and cause and need for replacement. We continually titrate dose and concentration to optimize pain relief and function. We are limited in concentration for certain drugs to safely deliver medications through the pump and stay within the recommendations from the Polyanalgesic Consensus Committee Guidelines. Depending on dose and concentration these pumps may need to be refilled sooner than 3 months as we titrate. A UDS is needed to verify patient's compliance with our office pain contract. This is ordered based off specific treatments related to chronic pain with the potential to abuse certain medications.
== END 2024-09-29 23:59 | disposition home or self-care (01) ==
PROVIDERS: PCP Physician Assistant; Visit Provider Nurse Practitioner Family
DX: M51.16 Intervertebral disc disorders with radiculopathy, lumbar region (principal)
CPT/HCPCS: 62368; 99212; 99213; G0463

== ENCOUNTER 2024-12-24 10:33 | Day surgery (SDC) | payer MEDICARE, OTHER, SELFPAY ==
--- NOTE | 2024-12-24 10:36 | EXP.PM.HP ---
History of Present Illness *Admission Date: 12/24/24 *Reason for visit:: Intrathecal refill; DDD *History of present illness: Same [facility] Disclaimer: The information contained in this section may have been updated after the patient was seen, as this information can be updated by other users. Medical History Macular degeneration History of gastrectomy CAD (coronary artery disease) Anxiety Vitamin D deficiency GERD (gastroesophageal reflux disease) HTN (hypertension) Depression Surgical History H/O: hysterectomy History of partial gastrectomy History of cholecystectomy History of hernia repair History of back surgery History of coronary artery stent placement Family History Other Family history of cancer Family history of diabetes mellitus Family history of heart disease Social History Smoking Status: Never smoker alcohol intake: never substance use type: denies use current occupational status: other Travel in the last 8 weeks?: None household members: spouse housing: house caffeine: Yes Have you lived/traveled outside US in past 30 days?: No Contact w/someone who lives/traveled outside US past 30 days?: No Exposure to someone with infectious disease in past 14 days?: No Do you have a fever (greater than 100.4 F or 38 C)?: No Have you tested positive for COVID-19?: No Exposed to someone with COVID-19 in past 14 days?: No Do you have a sore throat?: No Do you have a cough?: No Do you have any weakness?: No Do you have any diarrhea?: No Are you experiencing any unusual bleeding?: No Do you have any muscle aches/pain?: No Do you have any abdominal pain?: No Are you experiencing loss of taste or smell?: No Other Medical History Have you received the Flu Vaccine for this season: Yes Have you received the Pneumonia Vaccine: Yes Review of Systems Review of Systems Review of systems:: pertinent systems reviewed and negative unless documented below Review of systems (narrative): Review of Systems: General: No recent weight changes, no fever, no sleep disturbances Respiratory: No cough, no shortness of air, no recurring pulmonary infections Cardiovascular/peripheral vascular: No chest pain, no palpitations, no edema, no shortness of breath Gastrointestinal: No new onset incontinence, normal bowel movements reported Genitourinary: No new onset incontinence Musculoskeletal: Chronic back pain Psychiatric: [Normal mood/affect] Neurological: [Denies weakness in extremities], [denies balance issues] Meds Home Medications and Allergies Home Medications ?Medication ?Instructions ?Recorded ?Confirmed ?Type acetaminophen 500 mg tablet 500 mg PO BID Pain 10/12/21 09/29/24 History buspirone 15 mg tablet 15 mg PO TID mood 10/12/21 09/29/24 History cetirizine 10 mg tablet 10 mg PO DAILY allergies 10/12/21 09/29/24 History lisinopril 40 mg tablet 40 mg PO DAILY blood pressure 10/12/21 09/29/24 History metoprolol succinate 25 mg 25 mg PO DAILY Heart disease 10/12/21 09/29/24 History tablet,extended release 24 hr nitroglycerin 0.4 mg sublingual 0.4 mg sublingual DAILYP PRN Chest 10/12/21 09/29/24 History tablet Pain ondansetron HCl 4 mg tablet 4 mg PO BIDP PRN Nausea 10/12/21 09/29/24 History pantoprazole 40 mg tablet,delayed 40 mg PO DAILY GERD 10/12/21 09/29/24 History release primidone 250 mg tablet 250 mg PO DAILY HRT 10/12/21 09/29/24 History sucralfate 1 gram tablet 1 gm PO BID stomach 10/12/21 09/29/24 History trazodone 100 mg tablet 50 mg PO HS PRN sleep 10/12/21 09/29/24 History cholecalciferol (vitamin D3) 10 400 unit PO DAILY Supplement 10/23/21 09/29/24 History mcg (400 unit) capsule diclofenac submicronized 35 mg 35 mg PO DAILY Pain 10/23/21 09/29/24 History capsule duloxetine 20 mg capsule,delayed 20 mg PO DAILY mood 10/23/21 09/29/24 History release methocarbamol 750 mg tablet 750 mg PO HS #14 tabs 12/01/23 09/29/24 Rx metoprolol succinate 50 mg 50 mg PO DAILY #30 tabs 05/17/24 09/29/24 Rx tablet,extended release 24 hr tramadol 50 mg tablet 50 mg PO TID Pain #90 tabs 07/30/24 09/29/24 Rx baclofen 20 mg tablet 20 mg PO TID 09/08/24 09/29/24 History sulfamethoxazole 800 1 tab PO BID #14 tabs 09/10/24 09/29/24 Rx mg-trimethoprim 160 mg tablet (Bactrim DS) New Prescriptions to Start Prescriptions: Allergies Allergy/AdvReac Type Severity Reaction Status Date / Time ceftriaxone Allergy Other Verified 09/10/24 09:56 deutetrabenazine (From Allergy Other Verified 09/10/24 09:56 [place]) gabapentin Allergy Other Verified 09/10/24 09:56 hydrochlorothiazide Allergy Other Verified 09/10/24 09:56 methylprednisolone Allergy Other Verified 09/10/24 09:56 nitrofurantoin Allergy Other Verified 09/10/24 09:56 orphenadrine Allergy Other Verified 09/10/24 09:56 povidone-iodine Allergy Other Verified 09/10/24 09:56 sulindac Allergy Other Verified 09/10/24 09:56 tolmetin Allergy Other Verified 09/10/24 09:56 Exam Constitutional Constitutional: no acute distress *Routine HEENT Exam Head: Present normocephalic and atraumatic Eye: Present PERRL ENT: Present mucous membranes moist *Routine Neck Exam Neck: Present supple *Routine Respiratory Exam Respiratory: Present CTA bilaterally *Routine Cardiovascular Exam Cardiovascular: Present RRR *Routine Abdominal Exam Abdominal: Present soft *Routine Rectal Exam Rectal:: deferred *Routine Genitalia Exam Genitalia:: deferred Routine Back/Spine/Pelvis Exam Back/Spine: Present pain with flexion *Routine Skin Exam Skin: Present intact, dry and warm *Routine Neurological Exam Neurological: Present alert and oriented X3 Routine Psychiatric Exam Psychiatric: Present normal affect and normal thought process Assessment and Plan *Assessment and plan (1) Degenerative disc disease, lumbar: Status: Acute Category: Medical Code(s): M51.369 - Other intervertebral disc degeneration, lumbar region without mention of lumbar back pain or lower extremity pain (2) Chronic pain: Status: Acute Category: Medical Code(s): G89.29 - Other chronic pain Plan Patient has been instructed to contact the clinic with any concerns before the next appointment. Dr. Garcia has reviewed this note and agrees with this plan of care. This note was dictated using voice recognition software and make contain errors or omissions. All injections are used with Lidocaine, Bupivacaine and dexamethasone. Occasionally urine drug screen is needed to verify patient's compliance with our office pain contract. This is ordered based off specific treatments related to chronic pain with the potential to abuse certain medications.
--- NOTE | 2024-12-24 10:37 | P.PCN_ITS ---
Procedure Date: 12/24/24 Time: 11:13 Anesthesiologist:: Taylor Ray APRN Complications:: None Pre-procedure Diagnosis:: Degenerative disc disease of lumbar spine, chronic pain syndrome Post-procedure Diagnosis:: Same Indications for Procedure:: Patient is a pleasant 79-year-old female who presents today for intrathecal refill and reprogram. Today she rates her pain a 6 out of 10. She denies any new trauma or injury. Patient is doing well with her current pump settings. She is managed with Dilaudid 0.5 mg/mL with a daily dose of 0.51162 mg/day. She denies any side effects. She does state that she has had a little itching up around her chest and right forearm. She states the chest has gone away but she still occasionally has on her arm. Patient states that her was prescribed some topical and that does seem to help. Her Jesse has been reviewed and is appropriate. Physical Exam: General: Alert and oriented x3, no acute distress, pleasant and cooperative Lungs: Respirations even and unlabored, symmetrical chest expansion Eyes: PERRL Musculoskeletal: Flexion and extension of lumbar [spine] somewhat guarded secondary to pain, [antalgic gait noted] Neurological: Speech clear, no gross sensory deficit Procedure Details:: Informed consent was obtained and the risk and benefits of the procedure were explained to the patient. The patient had noninvasive monitoring placed including noninvasive blood pressure cuff and pulse oximeter. Patient's pump was interrogated. The area over the pump was cleansed with chlorhexidine as a cleansing solution. In sterile fashion the pump was accessed with a 22-gauge nee dle. Approximately 6.2 mls of the pump solution was removed and discarded appropriately. The pump was then refilled with 20 mL's of Dilaudid 0.5 mg/mL. The needle was withdrawn and a bandage was placed over the puncture site. The infusion rate was reprogrammed and continued at its current dosage. The patient tolerated well with no complication. Plan and Disposition:: Patient tolerated the procedure well with no complications and was discharged neurologically intact. Patient will return to clinic on or before their next intrathecal refill date. We will see the patient back in the clinic at the next intrathecal refill. Patient has been instructed to contact the clinic with any concerns before the next appointment. Dr. Garcia has reviewed this note and agrees with this plan of care. This note was dictated using voice recognition software and make contain errors or omissions. -- It Is medically necessary for this patient to continue to have their intrathecal pump refilled at regular intervals. This patient had an intrathecal pain pump implanted after meeting criteria of chronic intractable pain for greater than 3 months and failing conservative treatments. Patient has committed and been compliant to the treatment plan and all planned follow up care. Since implantation of the intrathecal pain pump, the patient has had decreased pain and been more functional. Oral medications have been reduced including intake of oral opioids. Patient continues to do well with intrathecal therapy with decrease in pain symptoms and increase in functional status. Stopping intrathecal medications can lead to life threatening withdrawal, seizures, cardiac arrest, severe pain, and possible . Pumps that are not refilled at regular intervals can be damages and cause and need for replacement. We continually titrate dose and concentration to optimize pain relief and function. We are limited in concentration for certain drugs to safely deliver medications through the pump and stay within the recommendations from the Polyanalgesic Consensus Committee Guidelines. Depending on dose and concentration these pumps may need to be refilled sooner than 3 months as we titrate. A UDS is needed to verify patient's compliance with our office pain contract. This is ordered based off specific treatments related to chronic pain with the potential to abuse certain medications.
[2024-12-24 10:45] VITALS: BP 148/71; PULSE 64; RESP 16; O2SAT 97; BMI 23.8
[2024-12-24 11:08] VITALS: BP 147/72; PULSE 61; RESP 18; O2SAT 97
[2024-12-24 11:17] VITALS: BP 140/72; PULSE 58; RESP 18; O2SAT 97
== END 2024-12-24 11:17 | disposition home or self-care (01) ==
PROVIDERS: PCP Physician Assistant; Visit Provider Nurse Practitioner Family
DX: G89.29 Other chronic pain (principal); Z45.1 Encounter for adjustment and management of infusion pump; M51.369 Other intervertebral disc degeneration, lumbar region without mention of lumbar back pain or lower extremity pain; M54.9 Dorsalgia, unspecified; I10 Essential (primary) hypertension; I25.10 Atherosclerotic heart disease of native coronary artery without angina pectoris; K21.9 Gastro-esophageal reflux disease without esophagitis; F41.9 Anxiety disorder, unspecified; F32.A Depression, unspecified; Z79.899 Other long term (current) drug therapy; Z88.3 Allergy status to other anti-infective agents; Z88.8 Allergy status to other drugs, medicaments and biological substances
CPT/HCPCS: 62370